=== PATIENT | male | born 1950 | race Caucasian/White ===

== ENCOUNTER 2018-04-11 21:31 | Emergency (ER) | payer OTHER ==
--- NOTE | 2018-04-11 21:38 | PDOC ---
History of Present Illness - General Stated Complaint: INTOX/FALL Time Seen by Provider: 04/11/18 21:38
[2018-04-11] MEDS ORDERED: SODIUM CHLORIDE 0.9% 500 ML INFUS.BAG IV ONE (21:42)
[2018-04-11 21:51] VITALS: TEMP 97.6; BMI 24.3
--- NOTE | 2018-04-11 21:57 | PDOC ---
History of Present Illness - General Chief Complaint: Injury Stated Complaint: INTOX/FALL Time Seen by Provider: 04/11/18 21:38 History Source: Patient, EMS - History of Present Illness Initial Comments: 04/11/18 21:56 67m with pmh of uncontrolled HTN and stroke brought by ems for fall on the floor while intoxicated. 04/12/18 00:07 Past History - Past Medical History Allergies/Adverse Reactions: Allergies Allergy/AdvReac Type Severity Reaction Status Date / Time No Known Allergies Allergy Verified 04/11/18 22:16 - Suicide/Smoking/Psychosocial Hx Smoking History: Unknown if ever smoked Have you smoked in the past 12 months: No Information on smoking cessation initiated: No Hx Alcohol Use: No Drug/Substance Use Hx: No *Physical Exam - Vital Signs Last Vital Signs Temp Pulse Resp BP Pulse Ox 97.6 F 109 H 16 171/79 H 95 04/11/18 21:50 04/11/18 21:50 04/11/18 21:50 04/11/18 21:50 04/11/18 21:50 Medical Decision Making - Medical Decision Making 04/12/18 00:07 CT head negative. Will reassess when patient has sobered up. Patient signed out to Dr. Michel *DC/Admit/Observation/Transfer Diagnosis at time of Disposition: Alcohol intoxication - Referrals - Patient Instructions - Post Discharge Activity
--- NOTE | 2018-04-11 23:47 | PDOC ---
Attending Attestation - Resident Resident Name: KaylahKeron - ED Attending Attestation I have performed the following: I have examined & evaluated the patient, The case was reviewed & discussed with the resident, I agree w/resident's findings & plan, Exceptions are as noted - HPI HPI: 04/11/18 23:40 67 M with HTN and CVA presents to ED after falling while intoxicated. Per family member, pt was drinking heavily tonight and tripped, falling over and hitting his head. Pt in ED is intoxicated and somnolent, unable to contribute any history, though he denies having any pain. - Physicial Exam PE: 04/11/18 23:47 GENERAL: somnolent, arousable to painful stimuli, in no acute distress. HEAD: No signs of trauma EYES: PERRLA, EOMI, sclera anicteric, conjunctiva clear ENT: Auricles normal inspection, hearing grossly normal, nares patent, oropharynx clear without exudates. Moist mucosa NECK: Nontender, no stepoffs, Normal ROM, supple, no lymphadenopathy, JVD, or masses LUNGS: Breath sounds equal, clear to auscultation bilaterally. No wheezes, and no crackles HEART: Regular rate and rhythm, normal S1 and S2, no murmurs, rubs or gallops ABDOMEN: Soft, nontender, normoactive bowel sounds. No guarding, no rebound. No masses EXTREMITIES: Normal range of motion, no edema. No clubbing or cyanosis. No cords, erythema, or tenderness NEUROLOGICAL: Cranial nerves II through XII intact. 5/5 strength and sensation in all extremities SKIN: Warm, Dry, normal turgor, no rashes or lesions noted. - Medical Decision Making 04/11/18 23:49 67 M presenting with fall and headstrike. Pt clinically intoxicated, smells of ETOH, but arousable. No external signs of trauma. - CT head - Re-evaluate when sober 04/12/18 01:21 CT head negative Pt reassessed - still sleeping but arousable to verbal stimuli. No complaints. 04/12/18 04:56 Pt now awake and alert. States that he has pain in his sacrum. Denies any other pain. XR ordered 04/12/18 06:38 XR negative on my read Upon further questioning, pt states that the pain in his back is chronic. He typically uses a cane to walk. Pt able to stand and ambulate with minimal assistance, he states that this is his baseline. 04/12/18 06:41 Discussed with pt's family, who corroborate that pt is ambulatory with assistance at baseline. He also has h/o HTN that he is currently not taking meds for. Pt denies any CP/SOB/headache. Rpt vitals stable BP 180/80 HR 70s Pt is well appearing, with normal vitals. Clinically stable for DC at this time. I discussed the physical exam findings, ancillary test results and final diagnoses with the patient. I answered all of the patient's questions. The patient was satisfied with the care received and felt comfortable with the discharge plan and treatment plan. The patient agrees to follow up with the primary care physician within 24-72 hours.
[2018-04-12] MEDS ORDERED: ACETAMINOPHEN 1000 MG/100 ML VIAL (NON FORMULARY) IVPB ONE (05:06)
[2018-04-12] MEDS ORDERED: ACETAMINOPHEN INJECTION 100 ML IVPB ONE (05:09)
--- NOTE | 2018-04-12 05:09 | PDOC ---
*Physical Exam - Vital Signs Last Vital Signs Temp Pulse Resp BP Pulse Ox 97.6 F 109 H 16 171/79 H 95 04/11/18 21:50 04/11/18 21:50 04/11/18 21:50 04/11/18 21:50 04/11/18 21:50 <Shyam Cheung - Last Filed: 04/12/18 06:43> - Vital Signs Last Vital Signs Temp Pulse Resp BP Pulse Ox 97.6 F 109 H 16 171/79 H 95 04/11/18 21:50 04/11/18 21:50 04/11/18 21:50 04/11/18 21:50 04/11/18 21:50 <Keyonna Michel - Last Filed: 04/12/18 07:16> ED Treatment Course - Medications Given in the ED: ED Medications Discontinued Medications Generic Name Dose Route Start Last Admin Trade Name Freq PRN Reason Stop Dose Admin Acetaminophen 1,000 mg 04/12/18 05:06 04/12/18 05:14 Ofirmev Injection - IVPB 04/12/18 05:07 1,000 mg ONCE ONE Administration Sodium Chloride 1,000 ml 04/11/18 21:42 04/11/18 22:14 Normal Saline - IV 04/11/18 21:43 1,000 ml ONCE ONE Administration <Shyam Cheung - Last Filed: 04/12/18 06:43> - RADIOLOGY Radiology Studies Ordered: Category Date Time Status HEAD CT WITHOUT CONTRAST [CT] Stat CT Scan 04/11/18 21:42 Completed SACRUM [RAD] Stat Radiology 04/12/18 04:55 Ordered - Medications Given in the ED: ED Medications Discontinued Medications Generic Name Dose Route Start Last Admin Trade Name Freq PRN Reason Stop Dose Admin Sodium Chloride 1,000 ml 04/11/18 21:42 04/11/18 22:14 Normal Saline - IV 04/11/18 21:43 1,000 ml ONCE ONE Administration <Keyonna Michel - Last Filed: 04/12/18 07:16> Medical Decision Making - Medical Decision Making 04/12/18 05:07 Patient signed out by Dr. Adrian (Resident) under the care of Dr. Cheung (Attending) 67 year old male presents for acute alcohol intoxication. Uncertain h/o fall. CT head negative for acute bleed. Patient initially drowsy, now awake c/o back pain, sacrum TTP. Will obtain Sacrum XR. VS significant for BP 200's/104 - possibly 2/2 to pain though patient has noted history of 1 year non-adherence to anti-hypertensive regimen.. IV Tylenol. Reassess. Sacral XR negative for fracture. Case d/w with patient's family . At baseline patient walk using a cane. Repeat BP 185/81. Will discharge home with return precautions. I discussed the physical exam findings, ancillary test results and final diagnoses with the patient. I answered all of the patient's questions. The patient was satisfied with the care received and felt comfortable with the discharge plan and treatment plan. The patient will return to the Emergency Department with any new, persistent or worsening symptoms. <Keyonna Michel - Last Filed: 04/12/18 07:16> *DC/Admit/Observation/Transfer <Shyam Cheung - Last Filed: 04/12/18 06:43> <Keyonna Michel - Last Filed: 04/12/18 07:16> Diagnosis at time of Disposition: Alcohol intoxication - Referrals Referrals: Dallas Gregorio MD [Staff Physician] - - Patient Instructions Printed Discharge Instructions: Essential Hypertension, How to Prevent Falls Additional Instructions: If you experience headache, chest pain, shortness of breath, or any other concerning symptoms, return to the ER immediately. Otherwise, follow up with your primary doctor within 48 hours. If you do not have one, call the number provided to make an appointment. You MUST to have your blood pressure checked by your primary doctor soon, as it was very elevated today. Uncontrolled blood pressure can eventually lead to kidney disease, heart disease, other serious illness, disability, or even . Se sentir becki de cabea, becki no peito, falta de ar ou qualquer outro sintoma preocupante, retorne imediatamente ao pronto-ventura. Melissa contrrio, fale com seu mdico em 48 horas. Se voc no tiver um, ligue para o nmero fornecido para marcar melissa consulta. Voc deve ter sua presso arterial verificada pelo seu mdico primrio em breve , yara foi muito elevado hoje. A presso arterial descontrolada pode eventualmente edward a doenas renais, doenas cardacas, outras doenas graves, incapacidade ou at a morte.
[2018-04-12 06:45] VITALS: BP 185/81; PULSE 72
== END 2018-04-12 07:33 | disposition home or self-care (01) ==
LOC: JER 21:31
PROC: 3E033NZ Introduction of Analgesics, Hypnotics, Sedatives into Peripheral Vein, Percutaneous Approach (ICD-10-PCS; principal; 2018-04-11)
DX: F10.120 Alcohol abuse with intoxication, uncomplicated (principal); S09.8XXA Other specified injuries of head, initial encounter; M53.3 Sacrococcygeal disorders, not elsewhere classified; W18.39XA Other fall on same level, initial encounter; Y93.89 Activity, other specified; Y92.018 Other place in single-family (private) house as the place of occurrence of the external cause; Y99.8 Other external cause status; I10 Essential (primary) hypertension; Z86.73 Personal history of transient ischemic attack (TIA), and cerebral infarction without residual deficits; Z91.14 Patient's other noncompliance with medication regimen; Y90.9 Presence of alcohol in blood, level not specified
CPT/HCPCS: 70450-TC; 72220-TC-FY; 99282-25; J0131

== ENCOUNTER 2019-03-31 17:03 | Inpatient (IN) | payer OTHER ==
[2019-03-31] MEDS ORDERED: ACETAMINOPHEN INJECTION 100 ML IVPB ONE (17:53)
--- NOTE | 2019-03-31 17:55 | PDOC ---
History of Present Illness - General Chief Complaint: SIRS, Suspected/Possible Stated Complaint: R/O STROKE Time Seen by Provider: 03/31/19 17:51 History Source: Family - History of Present Illness Initial Comments: 03/31/19 21:31 Mr. 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 He is accompanied by his sons. His son reports that his father is normally alert and can answer short questions, but yesterday afternoon found that he was requiring additional assistance for ADLs, including eating and bathing. His son reports that this morning he was confused and disoriented, and they brought him for evaluation as they were concerned that he presented similarly for his prior CVA. He denies any chills or any pain anywhere. Son: Bull - [phone] Chinese speaking Past History - Past Medical History Allergies/Adverse Reactions: Allergies Allergy/AdvReac Type Severity Reaction Status Date / Time No Known Allergies Allergy Verified 04/11/18 22:16 Home Medications: Ambulatory Orders Atorvastatin Ca [Lipitor] 80 mg PO HS 03/31/19 Carvedilol [Coreg -] 12.5 mg PO BID 03/31/19 Docusate Sodium [Colace -] 100 mg PO BID 03/31/19 Donepezil HCl [Aricept -] 5 mg PO DAILY 03/31/19 Hydralazine HCl 25 mg PO DAILY 03/31/19 Losartan Potassium 100 mg PO DAILY 03/31/19 Mirtazapine 7.5 mg PO HS 03/31/19 COPD: No HTN: Yes Hypercholesterolemia: Yes Other medical history: Hemorraghic stroke x3 - Immunization History Immunization Up to Date: No - Suicide/Smoking/Psychosocial Hx Smoking History: Unknown if ever smoked Have you smoked in the past 12 months: No Information on smoking cessation initiated: No Hx Alcohol Use: No Drug/Substance Use Hx: No Substance Use Type: Alcohol Review of Systems - Review of Systems Able to Perform ROS?: No (AMS) *Physical Exam - Vital Signs Last Vital Signs Temp Pulse Resp BP Pulse Ox 102.2 F H 78 16 137/74 100 03/31/19 17:35 03/31/19 17:35 03/31/19 17:35 03/31/19 17:35 03/31/19 17:35 - Physical Exam Comments: 03/31/19 22:01 PE: GENERAL: Somnolent, disoriented, pale. HEAD: No signs of trauma, normocephalic, atraumatic EYES: PERRLA, EOMI, sclera anicteric, conjunctiva clear ENT: Auricles normal inspection, hearing grossly normal, nares patent, oropharynx clear without exudates. Moist mucosa NECK: Normal ROM, supple, no lymphadenopathy, JVD, or masses LUNGS: Exam limited by poor inspiratory effort/difficulty cooperating with exam. No distress, clear to auscultation bilaterally HEART: Regular rate and rhythm, normal S1 and S2, no murmurs, rubs or gallops, peripheral pulses normal and equal bilaterally. ABDOMEN: Soft, nontender, normoactive bowel sounds. No guarding, no rebound. No masses EXTREMITIES : Normal inspection, Normal range of motion, no edema. No clubbing or cyanosis NEUROLOGICAL: No focal sensorimotor deficits SKIN: Warm, Dry, normal turgor, no rashes or lesions noted ED Treatment Course - LABORATORY CBC & Chemistry Diagram: 03/31/19 18:03 03/31/19 18:03 Medical Decision Making - Medical Decision Making 03/31/19 22:02 68 M with hx CVA, gout, HTN, HLD p/w one day of AMS, pallor, fever concerning for sepsis vs worsening infection. Plan: CBC CMP Blood cultures UA Urine culture CXR EKG CT Head non-con Acetaminophen 1g IV 1L NS IV Dispo: Admit -- CXR - negative UA - negative WBC - 13.5 03/31/19 22:36 Case discussed with admitting team. Will discuss with family re: spinal tap to r /o meningitis given unknown source of infection --- Spoke with patient's son Bull who will consent to spinal tap. 04/01/19 00:14 Still unable to locate spinal tap kit. --- Spinal tap kit en route from [facility]. Case signed out to Dr. Bryant. 04/01/19 03:12 *DC/Admit/Observation/Transfer Diagnosis at time of Disposition: Systemic inflammatory response syndrome (SIRS) - Discharge Dispostion Condition at time of disposition: Stable Decision to Admit order: Yes - Referrals - Patient Instructions - Post Discharge Activity
[2019-03-31] MEDS ORDERED: SODIUM CHLORIDE 0.9% 500 ML INFUS.BAG IV ONE (18:01)
[2019-03-31] MEDS ORDERED: ACETAMINOPHEN 1000 MG/100 ML VIAL (NON FORMULARY) IVPB ONE (18:01)
[2019-03-31 18:36] LABS: VENOUS PC02 49.3 mmHg (38-52); VENOUS PH 7.39 (7.31-7.41)
[2019-03-31 18:38] LABS: VENOUS PO2 < 49 mmHg (28-48)
[2019-03-31 19:02] LABS: BASO % 0.5 % (0-2.0); EOS % 0.1 % (0-4.5); HEMATOCRIT 33.8 % (35.4-49); HEMOGLOBIN 10.8 GM/dL (11.7-16.9); LYMPH % 12.7 % (8-40); MCH 27.4 pg (25.7-33.7); MCHC 31.9 g/dl (32.0-35.9); MONO % 6.6 % (3.8-10.2); NEUT % 80.1 % (42.8-82.8); PLATELET COUNT 180 K/MM3 (134-434); RBC 3.93 M/mm3 (4.00-5.60); RDW 17.1 % (11.9-15.9); WHITE BLOOD COUNT 13.5 K/mm3 (4.0-10.0)
[2019-03-31 19:10] LABS: ALBUMIN 3.2 g/dl (3.4-5.0); BILIRUBIN,TOTAL 0.9 mg/dL (0.2-1); BLOOD UREA NITROGEN 33.4 mg/dL (7-18); CALCIUM 8.8 mg/dL (8.5-10.1); CREATININE 1.6 mg/dL (0.55-1.3); POTASSIUM 4.3 mmol/L (3.5-5.1); TOT PROT 6.7 g/dl (6.4-8.2)
[2019-03-31 19:18] LABS: INR 1.31 (0.83-1.09); PROTHROMBIN TIME (PATIENT) 15.5 SEC (9.7-13.0)
[2019-03-31 19:21] LABS: ACTIVATED PTT 31.6 SECONDS (25.2-36.5)
[2019-03-31] MEDS ORDERED: HALOPERIDOL LACTATE 5 MG/ML ONE (20:26)
[2019-03-31 21:47] LABS: EPI CELLS 2.3 /HPF (0-5/HPF); HYALINE CASTS 16 /lpf (0-8); URINE APPEARANCE CLEAR; URINE BILIRUBIN NEGATIVE (NEGATIVE); URINE COLOR YELLOW; URINE GLUCOSE (UA) NEGATIVE (NEGATIVE); URINE KETONE NEGATIVE (NEGATIVE); URINE LEUK ESTERASE NEGATIVE (NEGATIVE); URINE NITRITE NEGATIVE (NEGATIVE); URINE PROTEIN 1+ (NEGATIVE); URINE RBC 0 /hpf (0-4); URINE WBC 0 /hpf (0-5)
[2019-03-31] MEDS ORDERED: HALOPERIDOL LACTATE 5 MG/ML IM ONE (22:14)
[2019-03-31] MEDS ORDERED: SODIUM CHLORIDE 1,000 ML IV STA (22:15)
--- NOTE | 2019-03-31 22:22 | PDOC ---
Attending Attestation - Resident Resident Name: Steve Ansari - ED Attending Attestation I have performed the following: I have examined & evaluated the patient, The case was reviewed & discussed with the resident, I agree w/resident's findings & plan, Exceptions are as noted - HPI HPI: 03/31/19 22:20 68 yo male brought in from home by ambulance for altered mental status and fever Past medical history significant for CVA with chronic left sided weakness 03/31/19 22:23 - Physicial Exam PE: 03/31/19 22:23 thin frail appearing 68 yo male with fever head ncat lung no wheezing cvs tachycardia abd no rebound skin warm and dry neuro verbal, chronic left sided weakness - Medical Decision Making 04/01/19 00:40 pt febrile but no source appreciated in urine or on cxr ct scan head : chronic infarct 04/01/19 01:48 pt currently undergoing lumbar puncture family gave verbal consent for procedure pt admitted to med/surg
--- NOTE | 2019-03-31 22:33 | PN ---
Teaching Attending Note Name of Resident: Can Michelle ATTENDING PHYSICIAN STATEMENT I saw and evaluated the patient. I reviewed the resident's note and discussed the case with the resident. I agree with the resident's findings and plan as documented. SUBJECTIVE: Patient is a 68 year old man with PMH of Hemorrhagic CVA 8 months ago with residual left sided weakness, HTN, HLD, ?Alcohol abuse and Gout presents with one day of AMS. He is accompanied by his sons. His son reports that his father is normally alert and can answer short questions, but yesterday afternoon found that he was requiring additional assistance for ADLs, including eating and bathing. His son reports that this morning he was confused and disoriented, and they brought him for evaluation as they were concerned that he presented similarly for his prior CVA. He denies any chills or any pain anywhere. Patient got one oes of Haldol 5 mg IM in the ER for ?agitation. OBJECTIVE: Somnolent but arousable Vital Signs Period Temp Pulse Resp BP Sys/Flores Pulse Ox Last 24 Hr 102.2 F 78 16 137/74 97-100 HEENT: No Jaundice, eye redness or discharge, PERRLA, EOMI. Normocephalic, atraumatic. External ears are normal and hearing is grossly intact. No nasal discharge. Neck: Supple, nontender. No palpable adenopathy or thyromegaly. No JVD Chest: Good effort. Clear to auscultation and percussion. Heart: Regular. No S3, rub or murmur Abdomen: Not distended, soft, nontender and no HSM. No rebound or guarding. Normal bowel sounds. Ext: Peripheral pulses intact. No leg edema. Skin: Warm and dry. No petechiae, rash or ecchymosis. Neuro: Somnolent but arousable. Withdraws to noxious stimuli. Plantar reflexes are flexor. Gait cannot be tested for safety reasons. Psych: Unable to assess due to AMS. Current Medications Generic Name Dose Route Start Last Admin Trade Name Freq PRN Reason Stop Dose Admin Sodium Chloride 1,000 mls @ 1,000 mls/hr 03/31/19 22:15 03/31/19 22:17 Normal Saline - IV 03/31/19 23:14 1,000 mls/hr ASDIR STA Administration Abnormal Lab Results 03/31/19 03/31/19 03/31/19 18:03 18:03 18:03 WBC 13.5 H RBC 3.93 L Hgb 10.8 L Hct 33.8 L MCHC 31.9 L RDW 17.1 H Absolute Neuts (auto) 10.8 H PT with INR 15.50 H INR 1.31 H POC VBG pO2 VBG O2 Sat (Gricelda) VBG Base Excess Chloride 109 H Anion Gap 6 L BUN 33.4 H Creatinine 1.6 H Random Glucose 126 H Albumin 3.2 L Urine Protein 03/31/19 03/31/19 18:03 20:39 WBC RBC Hgb Hct MCHC RDW Absolute Neuts (auto) PT with INR INR POC VBG pO2 < 49 H VBG O2 Sat (Gricelda) 40.8 L VBG Base Excess 3.5 H Chloride Anion Gap BUN Creatinine Random Glucose Albumin Urine Protein 1+ H ASSESSMENT AND PLAN: 1. Sepsis of unkown source and AMS - Noncontrast head CT showed right parietal, right thalamocapsular and left thalamic infarcts all reported as possibly chronic - will get brain MRI. No acute abnormality on CXR and no evidence of UTI. Sepsis workup done and patient getting a lumbar puncture by the ER staff - pending results of CSF analysis, will treat empirically for meningitis with IV Vancomycin, Rocephin, Ampicillin and Acyclovir. Will get urine toxicology, blood alcohol level and do neurochecks. Implement seizure, fall and aspiration precautions. Continue IV NS. Will continue comprehensive care for all of patient s comorbid conditions. 2. Hypoalbuminemia - Possibly due to combined effects of proteinuria, malnutrition and inflammation associated with comorbid chronic conditions. Will ensure adequate dietary protein intake and also consult electronic assembler group leader. 3. ANDREW - Cause unclear. Get kidney sonogram, CPK, hydrate and monitor urine output. Consult nephrology and avoid nephrotoxic agents such as NSAIDS, aminoglycosides, contrast dyes and certain Alternative medicine products. 4. Anemia - Likely multifactorial. Will do basic anemia work up including serial stool guaiacs, reticulocyte count and iron studies. 5. Hypertension - Restart suitable outpatient antihypertensive drugs when clinically appropriate. Revise regimen to ensure [id number] excellent BP control and counselor marriage and family patient on the injurious effects of uncontrolled hypertension. Nonpharmacologic measures to control hypertension like weight loss , salt restriction and exercise discussed. Importance of adherence to treatment regimen and attainment of normotension emphasized. 6. DVT prophylaxis - Heparin 5000u sq tid. 7. Advance directives - Full code
--- NOTE | 2019-03-31 23:01 | HP ---
CHIEF COMPLAINT: altered mental status PCP: HISTORY OF PRESENT ILLNESS: Darnell Jon is a 68 year old Yakut speaking male with a past medical history of hemorrhagic stroke (x4 with L sided residual weakness), hypertension , hyperlipidemia, gout who presented to the ED with family with altered mental status. The patient was somnolent and was unable to answer questions. History obtained from the son via phone. Patient was at his baseline mental status which was conversant in small phrases, following simple commands, eating normally, minimal walking with assistance, usually alert and oriented to self and place until night before admission when it was noticed he was more lethargic than usual. Patient was more unsteady, was not making sense with his words, and not consuming any foods this morning. The patient does not normally have any complaints and had no acute complaints as of recently. He had been unable to walk the last 3 weeks due to increased unsteadiness and pain in his knee. Additionally, the son noted a non-productive cough that appeared this morning as well as the patient having subjective warmth when forehead was felt. Patient was brought to the ED as the family was worried about a recurrence of the strokes that patient had. Son denied any recent changes to medication, alcohol or drug intoxication. Son stated that the patient had urinary incontinence and ambulates very poorly with a cane or walker but usually requires assistance to ambulate. ER course was notable for: (1) Febrile 202.2 (2) Head CT with R sided parietal chronic infarct, chronic right thalamocapsular infarct, chronic left thalamic infarct, moderate to marked periventricular subcortical gliosis within the frontal lobes, no obstructive hydrocephalus, no acute bleeds (3) CXR with no acute pathology (4) WBC 12.4, H/H 1038/33.8 Recent Travel: none PAST MEDICAL HISTORY: as above PAST SURGICAL HISTORY: son denies Social History: Smoking: denied Alcohol: former drinker Drugs: denied Lives with son Family History: unknown family history Allergies No Known Allergies Allergy (Verified 04/11/18 22:16) HOME MEDICATIONS: REVIEW OF SYSTEMS Unable to obtain review of systems as patient lethargic and unable to answer questions. All HPI as per above. PHYSICAL EXAMINATION Vital Signs - 24 hr 03/31/19 17:35 Temperature 102.2 F H Pulse Rate 78 Respiratory 16 Rate Blood Pressure 137/74 O2 Sat by Pulse 97 Oximetry (%) GENERAL: Lethargic, awakens briefly to noxious stimuli. HEAD: Normal with no signs of trauma. EYES: Pupils 2mm and sluggish to light, sclera anicteric. EARS, NOSE, THROAT: Oropharynx clear without exudates. Dry mucous membranes. NECK: Supple without lymphadenopathy, JVD. LUNGS: Breath sounds equal, poorly auscultated due to patient non-compliance otherwise clear to auscultation bilaterally. No wheezes, and no crackles. HEART: Regular rate and rhythm, normal S1 and S2 without murmur, rub. ABDOMEN: Soft, nontender, not distended, normoactive bowel sounds, no guarding, no rebound, no masses. MUSCULOSKELETAL: No noted bone deformities. UPPER EXTREMITIES: 2+ pulses, warm, well-perfused. No cyanosis. No clubbing. No peripheral edema. LOWER EXTREMITIES: 1+ pulses, warm, well-perfused. No calf tenderness. No peripheral edema. NEUROLOGICAL: Withdraws all four extremities to painful stimuli, Babinski non- reactive. Pupils sluggish to light. SKIN: Warm, dry, normal turgor, noted small excoriation on left wells. Laboratory Results - last 24 hr 03/31/19 03/31/19 03/31/19 17:03 18:03 18:03 WBC 13.5 H RBC 3.93 L Hgb 10.8 L Hct 33.8 L MCV 86.0 MCH 27.4 MCHC 31.9 L RDW 17.1 H Plt Count 180 MPV 10.0 Absolute Neuts (auto) 10.8 H Neutrophils % 80.1 Lymphocytes % 12.7 Monocytes % 6.6 Eosinophils % 0.1 Basophils % 0.5 Nucleated RBC % 0 PT with INR INR PTT (Actin FS) VBG pH POC VBG pCO2 POC VBG pO2 VBG HCO3 VBG O2 Sat (Gricelda) VBG Base Excess Sodium Potassium Chloride Carbon Dioxide Anion Gap BUN Creatinine Est GFR (CKD-EPI)AfAm Est GFR (CKD-EPI)NonAf Random Glucose Lactic Acid 1.6 Calcium Total Bilirubin AST ALT Alkaline Phosphatase Troponin I < 0.02 Total Protein Albumin Urine Color Urine Appearance Urine pH Ur Specific [place] Urine Protein Urine Glucose (UA) Urine Ketones Urine Blood Urine Nitrite Urine Bilirubin Urine Urobilinogen Ur Leukocyte Esterase Urine WBC (Auto) Urine RBC (Auto) Urine Casts (Auto) U Epithel Cells (Auto) Urine Bacteria (Auto) 03/31/19 03/31/19 03/31/19 18:03 18:03 18:03 WBC RBC Hgb Hct MCV MCH MCHC RDW Plt Count MPV Absolute Neuts (auto) Neutrophils % Lymphocytes % Monocytes % Eosinophils % Basophils % Nucleated RBC % PT with INR 15.50 H INR 1.31 H PTT (Actin FS) 31.6 VBG pH 7.39 POC VBG pCO2 49.3 POC VBG pO2 < 49 H VBG HCO3 29.0 VBG O2 Sat (Gricelda) 40.8 L VBG Base Excess 3.5 H Sodium 144 Potassium 4.3 Chloride 109 H Carbon Dioxide 29 Anion Gap 6 L BUN 33.4 H Creatinine 1.6 H Est GFR (CKD-EPI)AfAm 50.55 Est GFR (CKD-EPI)NonAf 43.62 Random Glucose 126 H Lactic Acid Calcium 8.8 Total Bilirubin 0.9 AST 28 ALT 17 Alkaline Phosphatase 74 Troponin I Total Protein 6.7 Albumin 3.2 L Urine Color Urine Appearance Urine pH Ur Specific [place] Urine Protein Urine Glucose (UA) Urine Ketones Urine Blood Urine Nitrite Urine Bilirubin Urine Urobilinogen Ur Leukocyte Esterase Urine WBC (Auto) Urine RBC (Auto) Urine Casts (Auto) U Epithel Cells (Auto) Urine Bacteria (Auto) 03/31/19 20:39 WBC RBC Hgb Hct MCV MCH MCHC RDW Plt Count MPV Absolute Neuts (auto) Neutrophils % Lymphocytes % Monocytes % Eosinophils % Basophils % Nucleated RBC % PT with INR INR PTT (Actin FS) VBG pH POC VBG pCO2 POC VBG pO2 VBG HCO3 VBG O2 Sat (Gricelda) VBG Base Excess Sodium Potassium Chloride Carbon Dioxide Anion Gap BUN Creatinine Est GFR (CKD-EPI)AfAm Est GFR (CKD-EPI)NonAf Random Glucose Lactic Acid Calcium Total Bilirubin AST ALT Alkaline Phosphatase Troponin I Total Protein Albumin Urine Color Yellow Urine Appearance Clear Urine pH 6.0 Ur Specific [place] 1.020 Urine Protein 1+ H Urine Glucose (UA) Negative Urine Ketones Negative Urine Blood Negative Urine Nitrite Negative Urine Bilirubin Negative Urine Urobilinogen 1.0 Ur Leukocyte Esterase Negative Urine WBC (Auto) 0 Urine RBC (Auto) 0 Urine Casts (Auto) 16 U Epithel Cells (Auto) 2.3 Urine Bacteria (Auto) 1.0 EKG--> NSR, LVH, no ST segment changes, Qtc 467 ASSESSMENT/PLAN: Darnell Jon is a 68 year old Yakut speaking male with a past medical history of 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 Altered Mental Status Hypertension Hyperlipidemia Anemia ANDREW/CKD Altered Mental Status secondary to sepsis of unknown origin - patient febrile and septic with no clear source, UA negative, CXR negative, LP pending - CT as above - brain MRI to examine for encephalitis or other acute pathology - covered empirically for meningitis - ceftriaxone 2g daily - vancomycin 1g daily renally dosed - ampicillin 2g q12 renally dosed - acyclovir 700mg q12h renally dosed as recommended by pharmacy - NS at 100 cc/hr - continue to trend WBC, fevers, signs of infection - urine and blood cultures pending - ID consulted - Neurology consulted - dysphagia and fall precautions - urine toxicology negative - monitor for electrolytes disturbances Hypertension - hold BP meds in setting of sepsis - monitor BP and low threshold to restart BP meds in light of history of hemorrhagic stroke Hyperlipidemia - continue Lipitor Anemia - unclear of baseline - iron studies - may benefit from iron supplementation ANDREW/CKD - CRE 1.6, unclear of baseline - renal/bladder U/S - urine CRE and electrolytes ordered - CPK ordered FEN - NS at 100 cc/hr - continue to monitor electrolytes and replete as necessary - sodium controlled diet, dysphagia precautions while has altered mental status Prophylaxis - heparin 5000 units sub tid Code - full code EVA KNOTT DO - PGY-1 Visit type - Emergency Visit Emergency Visit: Yes ED Registration Date: 03/31/19 Care time: The patient presented to the Emergency Department on the above date and was hospitalized for further evaluation of their emergent condition. - New Patient This patient is new to me today: Yes Date on this admission: 04/01/19 - Critical Care Critical Care patient: No
[2019-04-01] MEDS ORDERED: CEFTRIAXONE 2 GM-D5W BAG 2 GM/50 ML BAG IVPB ONE (00:05)
[2019-04-01] MEDS ORDERED: VANCOMYCIN 1 GM in D5W (PRE-DOCKED) 1,000 MG/250 ML IVPB ONE (00:05)
[2019-04-01] MEDS ORDERED: AMPICILLIN - 2 GM in SODIUM CHLORIDE 100 ML IVPB ONE ×2 (00:06→13:00)
[2019-04-01] MEDS ORDERED: SODIUM CHLORIDE 1,000 ML IV SCH (00:15)
[2019-04-01] MEDS ORDERED: VANCOMYCIN 1 GRAM (PRE-DOCKED) 1,000 MG/250 ML BAG IVPB ONE (00:36)
[2019-04-01] MEDS ORDERED: AMPICILLIN SODIUM 2 GM VIAL ONE (00:36)
[2019-04-01] MEDS ORDERED: CEFTRIAXONE 2 GM/100 ML BAG IVPB ONE (00:36)
[2019-04-01 01:01] LABS: COCAINE, UR NEGATIVE ng/ml (CUTOFF=300); METHADONE, UR NEGATIVE ng/ml (CUTOFF=300); OPIATES, URI NEGATIVE ng/ml (CUTOFF=300); PHENCYCLIDINE,URINE NEGATIVE ng/ml (CUTOFF=25); URINE AMPHETAMINES NEGATIVE ng/ml (CUTOFF=500); URINE BARBITURATES NEGATIVE ng/ml (CUTOFF=200); URINE BENZODIAZEPINES NEGATIVE ng/ml (CUTOFF=200)
[2019-04-01] MEDS ORDERED: LIDOCAINE HCL/PF 1% SDV 5ML VIAL ONE (01:47)
[2019-04-01] MEDS ORDERED: ACYCLOVIR INJECTION 700 MG in DEXTROSE 5%-WATER - 100 ML IVPB ONE (02:00)
[2019-04-01] MEDS ORDERED: ACYCLOVIR INJECTION 700 MG in DEXTROSE 5%-WATER - 100 ML IVPB SCH ×2 (02:00→15:45)
--- NOTE | 2019-04-01 02:42 | PDOC ---
*Physical Exam - Vital Signs Last Vital Signs Temp Pulse Resp BP Pulse Ox 102.2 F H 72 20 155/81 95 03/31/19 17:35 04/01/19 00:21 04/01/19 00:21 04/01/19 00:21 04/01/19 00:21 ED Treatment Course - LABORATORY CBC & Chemistry Diagram: 03/31/19 18:03 03/31/19 18:03 - ADDITIONAL ORDERS Additional order review: Laboratory Results 03/31/19 03/31/19 03/31/19 20:39 18:03 18:03 PT with INR 15.50 H INR 1.31 H PTT (Actin FS) 31.6 VBG pH 7.39 POC VBG pCO2 49.3 POC VBG pO2 < 49 H VBG HCO3 29.0 VBG O2 Sat (Gricelda) 40.8 L VBG Base Excess 3.5 H Sodium Potassium Chloride Carbon Dioxide Anion Gap BUN Creatinine Est GFR (CKD-EPI)AfAm Est GFR (CKD-EPI)NonAf Random Glucose Lactic Acid Calcium Total Bilirubin AST ALT Alkaline Phosphatase Troponin I Total Protein Albumin Urine Color Yellow Urine Appearance Clear Urine pH 6.0 Ur Specific [place] 1.020 Urine Protein 1+ H Urine Glucose (UA) Negative Urine Ketones Negative Urine Blood Negative Urine Nitrite Negative Urine Bilirubin Negative Urine Urobilinogen 1.0 Ur Leukocyte Esterase Negative Urine WBC (Auto) 0 Urine RBC (Auto) 0 Urine Casts (Auto) 16 U Epithel Cells (Auto) 2.3 Urine Bacteria (Auto) 1.0 03/31/19 03/31/19 03/31/19 18:03 18:03 17:03 PT with INR INR PTT (Actin FS) VBG pH POC VBG pCO2 POC VBG pO2 VBG HCO3 VBG O2 Sat (Gricelda) VBG Base Excess Sodium 144 Potassium 4.3 Chloride 109 H Carbon Dioxide 29 Anion Gap 6 L BUN 33.4 H Creatinine 1.6 H Est GFR (CKD-EPI)AfAm 50.55 Est GFR (CKD-EPI)NonAf 43.62 Random Glucose 126 H Lactic Acid 1.6 Calcium 8.8 Total Bilirubin 0.9 AST 28 ALT 17 Alkaline Phosphatase 74 Troponin I < 0.02 Total Protein 6.7 Albumin 3.2 L Urine Color Urine Appearance Urine pH Ur Specific [place] Urine Protein Urine Glucose (UA) Urine Ketones Urine Blood Urine Nitrite Urine Bilirubin Urine Urobilinogen Ur Leukocyte Esterase Urine WBC (Auto) Urine RBC (Auto) Urine Casts (Auto) U Epithel Cells (Auto) Urine Bacteria (Auto) 03/31/19 18:03 RBC 3.93 L MCV 86.0 MCHC 31.9 L RDW 17.1 H MPV 10.0 Neutrophils % 80.1 Lymphocytes % 12.7 Monocytes % 6.6 Eosinophils % 0.1 Basophils % 0.5 - Medications Given in the ED: ED Medications Discontinued Medications Generic Name Dose Route Start Last Admin Trade Name Linda PRN Reason Stop Dose Admin Acetaminophen 1,000 mg 03/31/19 18:01 03/31/19 18:11 Ofirmev Injection - IVPB 03/31/19 18:02 1,000 mg ONCE ONE Administration Haloperidol 5 mg 03/31/19 22:14 03/31/19 22:05 Haldol Injection (Fast Acting) - IM 03/31/19 22:15 5 mg ONCE ONE Administration Sodium Chloride 1,000 mls @ 1,000 mls/hr 03/31/19 22:15 03/31/19 22:17 Normal Saline - IV 03/31/19 23:14 1,000 mls/hr ASDIR STA Administration Ampicillin Sodium 2 gm/ Sodium 100 mls @ 200 mls/hr 04/01/19 00:06 04/01/19 00:58 Chloride IVPB 04/01/19 00:35 200 mls/hr ONCE ONE Administration Protocol Ceftriaxone Sodium 2 gm in 50 mls @ 100 mls/hr 04/01/19 00:05 04/01/19 00:58 Ceftriaxone 2 Gm-D5w Bag IVPB 04/01/19 00:34 100 mls/hr ONCE ONE Administration Protocol Sodium Chloride 1,000 ml 03/31/19 18:01 03/31/19 18:11 Normal Saline - IV 03/31/19 18:02 1,000 ml ONCE ONE Administration Vancomycin HCl 1,000 mg 04/01/19 00:05 04/01/19 02:02 Vancomycin (Pre-Docked) IVPB 04/01/19 00:06 1,000 mg ONCE ONE Administration Protocol *DC/Admit/Observation/Transfer Diagnosis at time of Disposition: Systemic inflammatory response syndrome (SIRS) - Discharge Dispostion Condition at time of disposition: Stable - Referrals - Patient Instructions - Post Discharge Activity Procedures - Lumbar Puncture Indication: AMS, Fever CT Scan: Yes Betadine Prep: Yes Position: Left lateral decubitus Site: L3-L4 Local Anesthesia: 1% Lidocaine with epi Volume(ml): 6 Lumbar Puncture Kit: Adult Needle Size(gauge): 20 Traumatic Tap: No Tubes Obtained: 4 Clear Fluid: Yes (1st tube appeared cloudy; 2-4 clear) Complications: No
[2019-04-01 03:08] LABS: BF GLUCOSE (CSF ONLY) 86 mg/dL (40-70)
[2019-04-01 03:45] VITALS: BMI 25.9
[2019-04-01 05:56] LABS: CSF APPEARANCE CLEAR; CSF COLOR COLORLESS
[2019-04-01 06:16] LABS: CSF WBC 1
[2019-04-01 07:37] LABS: HEMATOCRIT 32.5 % (35.4-49); HEMOGLOBIN 10.5 GM/dL (11.7-16.9); MCH 27.8 pg (25.7-33.7); MCHC 32.2 g/dl (32.0-35.9); MEAN CELL VOLUME 86.2 fl (80-96); MEAN PLT VOLUME 9.3 fl (7.5-11.1); PLATELET COUNT 140 K/MM3 (134-434); RBC 3.77 M/mm3 (4.00-5.60); RDW 17.4 % (11.9-15.9); WHITE BLOOD COUNT 9.7 K/mm3 (4.0-10.0)
[2019-04-01] MEDS: HEPARIN NA (PORCINE) 5,000 UNITS/ML 1ML VIAL SQ SCH ×3 (07:50→21:56)
[2019-04-01 08:35] LABS: ALBUMIN 2.8 g/dl (3.4-5.0); BILIRUBIN,TOTAL 0.6 mg/dL (0.2-1); BLOOD UREA NITROGEN 24.9 mg/dL (7-18); CALCIUM 8.1 mg/dL (8.5-10.1); CREATININE 1.1 mg/dL (0.55-1.3); MAGNESIUM 2.2 mg/dL (1.8-2.4); POTASSIUM 3.8 mmol/L (3.5-5.1); TOT PROT 6.2 g/dl (6.4-8.2)
--- NOTE | 2019-04-01 09:11 | CONSULT ---
Consult - text type - Consultation Consultation Note: Neurology CHIEF COMPLAINT: altered mental status HISTORY OF PRESENT ILLNESS: 68 year old Estonian speaking male with a past medical history of hemorrhagic stroke (x4 with L sided residual weakness), hypertension, hyperlipidemia, gout who presented to the ED with family with altered mental status. The patient was somnolent and was unable to answer questions. History obtained from chart. eportedly, patient was at his baseline mental status which was conversant in small phrases, following simple commands, eating normally, minimal walking with assistance, usually alert and oriented to self and place until night before admission when it was noticed he was more lethargic than usual. Patient was more unsteady, was not making sense with his words, and not consuming any foods this morning. The patient does not normally have any complaints and had no acute complaints as of recently. He had been unable to walk the last 3 weeks due to increased unsteadiness and pain in his knee. Additionally, the son noted a non-productive cough that appeared this morning as well as the patient having subjective warmth when forehead was felt. Patient was brought to the ED as the family was worried about a recurrence of the strokes that patient had. Son denied any recent changes to medication, alcohol or drug intoxication. Son stated that the patient had urinary incontinence and ambulates very poorly with a cane or walker but usually requires assistance to ambulate. Of note, he had slightly elevated white count of 12.[address] completed and demonstrated R sided parietal chronic infarct, chronic right thalamocapsular infarct, chronic left thalamic infarct, moderate to marked periventricular subcortical gliosis within the frontal lobes, no obstructive hydrocephalus, no acute bleeds CXR with no acute pathology. spinal tap was also completed and demonstrelevated glucose of 86 and slightly elevated protein of 51 elevated protein of 51. Discussed case with nurse and would like for patient have MRI of the brain which has been ordered already. Also discussed with hospitalist. Patient remains lethargic and has been put on antibiotics. Recent Travel: none PAST MEDICAL HISTORY: as above PAST SURGICAL HISTORY: son denies Social History: Smoking: denied Alcohol: former drinker Drugs: denied Lives with son Family History: HTN Allergies No Known Allergies Allergy (Verified 04/11/18 22:16) HOME MEDICATIONS: REVIEW OF SYSTEMS Unable to obtain review of systems as patient lethargic and unable to answer questions. All HPI as per above. PHYSICAL EXAMINATION Vital Signs - 24 hr 03/31/19 17:35 Temperature 102.2 F H Pulse Rate 78 Respiratory 16 Rate Blood Pressure 137/74 O2 Sat by Pulse 97 Oximetry (%) GENERAL: Lethargic, awakens briefly to noxious stimuli. HEAD: Normal with no signs of trauma. EYES: Pupils 2mm and sluggish to light, sclera anicteric. EARS, NOSE, THROAT: Oropharynx clear without exudates. Dry mucous membranes. NECK: Supple without lymphadenopathy, JVD. LUNGS: Breath sounds equal, poorly auscultated due to patient non-compliance otherwise clear to auscultation bilaterally. No wheezes, and no crackles. HEART: Regular rate and rhythm, normal S1 and S2 without murmur, rub. ABDOMEN: Soft, nontender, not distended, normoactive bowel sounds, no guarding, no rebound, no masses. MUSCULOSKELETAL: No noted bone deformities. UPPER EXTREMITIES: 2+ pulses, warm, well-perfused. No cyanosis. No clubbing. No peripheral edema. LOWER EXTREMITIES: 1+ pulses, warm, well-perfused. No calf tenderness. No peripheral edema. NEUROLOGICAL: Withdraws all four extremities to painful stimuli, Babinski non- reactive. Not following commands, pupils slow but responsive to light, not participating in confrontation testing SKIN: Warm, dry, normal turgor, noted small excoriation on left wells. Laboratory Results - last 24 hr 03/31/19 03/31/19 03/31/19 17:03 18:03 18:03 WBC 13.5 H RBC 3.93 L Hgb 10.8 L Hct 33.8 L MCV 86.0 MCH 27.4 MCHC 31.9 L RDW 17.1 H Plt Count 180 MPV 10.0 Absolute Neuts (auto) 10.8 H Neutrophils % 80.1 Lymphocytes % 12.7 Monocytes % 6.6 Eosinophils % 0.1 Basophils % 0.5 Nucleated RBC % 0 PT with INR INR PTT (Actin FS) VBG pH POC VBG pCO2 POC VBG pO2 VBG HCO3 VBG O2 Sat (Gricelda) VBG Base Excess Sodium Potassium Chloride Carbon Dioxide Anion Gap BUN Creatinine Est GFR (CKD-EPI)AfAm Est GFR (CKD-EPI)NonAf Random Glucose Lactic Acid 1.6 Calcium Total Bilirubin AST ALT Alkaline Phosphatase Troponin I < 0.02 Total Protein Albumin Urine Color Urine Appearance Urine pH Ur Specific [place] Urine Protein Urine Glucose (UA) Urine Ketones Urine Blood Urine Nitrite Urine Bilirubin Urine Urobilinogen Ur Leukocyte Esterase Urine WBC (Auto) Urine RBC (Auto) Urine Casts (Auto) U Epithel Cells (Auto) Urine Bacteria (Auto) 03/31/19 03/31/19 03/31/19 18:03 18:03 18:03 WBC RBC Hgb Hct MCV MCH MCHC RDW Plt Count MPV Absolute Neuts (auto) Neutrophils % Lymphocytes % Monocytes % Eosinophils % Basophils % Nucleated RBC % PT with INR 15.50 H INR 1.31 H PTT (Actin FS) 31.6 VBG pH 7.39 POC VBG pCO2 49.3 POC VBG pO2 < 49 H VBG HCO3 29.0 VBG O2 Sat (Gricelda) 40.8 L VBG Base Excess 3.5 H Sodium 144 Potassium 4.3 Chloride 109 H Carbon Dioxide 29 Anion Gap 6 L BUN 33.4 H Creatinine 1.6 H Est GFR (CKD-EPI)AfAm 50.55 Est GFR (CKD-EPI)NonAf 43.62 Random Glucose 126 H Lactic Acid Calcium 8.8 Total Bilirubin 0.9 AST 28 ALT 17 Alkaline Phosphatase 74 Troponin I Total Protein 6.7 Albumin 3.2 L Urine Color Urine Appearance Urine pH Ur Specific [place] Urine Protein Urine Glucose (UA) Urine Ketones Urine Blood Urine Nitrite Urine Bilirubin Urine Urobilinogen Ur Leukocyte Esterase Urine WBC (Auto) Urine RBC (Auto) Urine Casts (Auto) U Epithel Cells (Auto) Urine Bacteria (Auto) 03/31/19 20:39 WBC RBC Hgb Hct MCV MCH MCHC RDW Plt Count MPV Absolute Neuts (auto) Neutrophils % Lymphocytes % Monocytes % Eosinophils % Basophils % Nucleated RBC % PT with INR INR PTT (Actin FS) VBG pH POC VBG pCO2 POC VBG pO2 VBG HCO3 VBG O2 Sat (Gricelda) VBG Base Excess Sodium Potassium Chloride Carbon Dioxide Anion Gap BUN Creatinine Est GFR (CKD-EPI)AfAm Est GFR (CKD-EPI)NonAf Random Glucose Lactic Acid Calcium Total Bilirubin AST ALT Alkaline Phosphatase Troponin I Total Protein Albumin Urine Color Yellow Urine Appearance Clear Urine pH 6.0 Ur Specific [place] 1.020 Urine Protein 1+ H Urine Glucose (UA) Negative Urine Ketones Negative Urine Blood Negative Urine Nitrite Negative Urine Bilirubin Negative Urine Urobilinogen 1.0 Ur Leukocyte Esterase Negative Urine WBC (Auto) 0 Urine RBC (Auto) 0 Urine Casts (Auto) 16 U Epithel Cells (Auto) 2.3 Urine Bacteria (Auto) 1.0 EKG--> NSR, LVH, no ST segment changes, Qtc 467 ASSESSMENT/PLAN: 68 year old Estonian speaking male with a past medical history of hemorrhagic stroke (x4 with L sided residual weakness), hypertension, hyperlipidemia, gout who presented to the ED with family with altered mental status. The patient was somnolent and was unable to answer questions. History obtained from chart. eportedly, patient was at his baseline mental status which was conversant in small phrases, following simple commands, eating normally, minimal walking with assistance, usually alert and oriented to self and place until night before admission when it was noticed he was more lethargic than usual. Patient was more unsteady, was not making sense with his words, and not consuming any foods this morning. The patient does not normally have any complaints and had no acute complaints as of recently. He had been unable to walk the last 3 weeks due to increased unsteadiness and pain in his knee. Additionally, the son noted a non-productive cough that appeared this morning as well as the patient having subjective warmth when forehead was felt. Patient was brought to the ED as the family was worried about a recurrence of the strokes that patient had. Son denied any recent changes to medication, alcohol or drug intoxication. Son stated that the patient had urinary incontinence and ambulates very poorly with a cane or walker but usually requires assistance to ambulate. Of note, he had slightly elevated white count of 12.[address] completed and demonstrated R sided parietal chronic infarct, chronic right thalamocapsular infarct, chronic left thalamic infarct, moderate to marked periventricular subcortical gliosis within the frontal lobes, no obstructive hydrocephalus, no acute bleeds CXR with no acute pathology. spinal tap was also completed and demonstrelevated glucose of 86 and slightly elevated protein of 51 elevated protein of 51. Discussed case with nurse and would like for patient have MRI of the brain which has been ordered already. Also discussed with hospitalist. Patient remains lethargic and has been put on antibiotics. ID follow up. Maintain adequate hydration. Monitor mental status, Renal consult for acute kidney injury.
[2019-04-01] MEDS ORDERED: DEXTROSE 5%-0.45% SALINE 1,000 ML IV SCH (10:45)
--- NOTE | 2019-04-01 10:47 | PN ---
Teaching Attending Note Name of Resident: Jamey Frazier ATTENDING PHYSICIAN STATEMENT I saw and evaluated the patient. I reviewed the resident's note and discussed the case with the resident. I agree with the resident's findings and plan as documented with exceptions below. SUBJECTIVE: Patient seen and examined, opens eyes, says 'yes' but otherwise limited participation. Unable to do full ROS. OBJECTIVE: Vital Signs Period Temp Pulse Resp BP Sys/Flores Pulse Ox Last 24 Hr 97.8 F-102.2 F 54-78 16-20 137-158/71-84 95-100 Intake & Output 03/29/19 03/30/19 03/31/19 04/01/19 23:59 23:59 23:59 23:59 Intake Total 400 Balance 400 Weight 154 lb 5.177 oz 161 lb 2 oz General: lying in bed, no acute distress Neck: soft, supple, no JVD CVS:S1S2 regular Chest: poor effort, unable to appreciate rales or wheezing Abdomen:Soft, obese, NT Extremities: no edema Neuro: opens eyes, says 'yes', minimal participation, facial symmetry, tongue midline, left eye miosis, both reactive to light but left sluggish, left sided weakness, withdraws to pain , DTR diminished, toes withdrawal, unable to check for sensations, unable to check gait Home Medications Medication Instructions Recorded Atorvastatin Ca [Lipitor] 80 mg PO HS 03/31/19 Carvedilol [Coreg -] 12.5 mg PO BID 03/31/19 Docusate Sodium [Colace -] 100 mg PO BID 03/31/19 Donepezil HCl [Aricept -] 5 mg PO DAILY 03/31/19 Hydralazine HCl 25 mg PO DAILY 03/31/19 Losartan Potassium 100 mg PO DAILY 03/31/19 Mirtazapine 7.5 mg PO HS 03/31/19 Active Medications Atorvastatin Calcium (Lipitor -) 80 mg PO HS MATTIE Donepezil HCl (Aricept -) 5 mg PO DAILY MATTIE Heparin Sodium (Porcine) (Heparin -) 5,000 unit SQ TID MATTIE Last Admin: 04/01/19 07:50 Dose: 5,000 unit Acyclovir 700 mg/ Dextrose 114 mls @ 100 mls/hr IVPB Q12H MATTIE Ampicillin Sodium 2 gm/ Sodium (Chloride) 100 mls @ 200 mls/hr IVPB ONCE ONE; Protocol Stop: 04/01/19 13:29 Dextrose/Sodium Chloride (D5-1/2ns -) 1,000 mls @ 100 mls/hr IV ASDIR COUNTS INCLUDE 234 BEDS AT THE [facility] Laboratory Results - last 24 hr 03/31/19 03/31/19 03/31/19 17:03 18:03 18:03 WBC 13.5 H RBC 3.93 L Hgb 10.8 L Hct 33.8 L MCV 86.0 MCH 27.4 MCHC 31.9 L RDW 17.1 H Plt Count 180 MPV 10.0 Absolute Neuts (auto) 10.8 H Neutrophils % 80.1 Lymphocytes % 12.7 Monocytes % 6.6 Eosinophils % 0.1 Basophils % 0.5 Nucleated RBC % 0 PT with INR INR PTT (Actin FS) VBG pH POC VBG pCO2 POC VBG pO2 VBG HCO3 VBG O2 Sat (Gricelda) VBG Base Excess Sodium Potassium Chloride Carbon Dioxide Anion Gap BUN Creatinine Est GFR (CKD-EPI)AfAm Est GFR (CKD-EPI)NonAf Random Glucose Lactic Acid 1.6 Calcium Magnesium Iron TIBC Iron Saturation Unsaturated IBC Ferritin Total Bilirubin AST ALT Alkaline Phosphatase Creatine Kinase Creatine Kinase Index CK-MB (CK-2) Troponin I < 0.02 Total Protein Albumin TSH Urine Color Urine Appearance Urine pH Ur Specific [place] Urine Protein Urine Glucose (UA) Urine Ketones Urine Blood Urine Nitrite Urine Bilirubin Urine Urobilinogen Ur Leukocyte Esterase Urine WBC (Auto) Urine RBC (Auto) Urine Casts (Auto) U Epithel Cells (Auto) Urine Bacteria (Auto) Ur Random Creatinine Ur Random Sodium Ur Random Potassium Ur Random Chloride CSF Appearance CSF Color CSF WBC CSF RBC CSF Neutrophils CSF Lymphocytes CSF Monocytes CSF Eosinophils CSF Basophils CSF Macrophages CSF Plasma Cells CSF Other Cells CSF Diff Comment CSF Comment CSF Glucose CSF Total Protein Opiates Screen Methadone Screen Barbiturate Screen Phencyclidine Screen Ur Amphetamines Screen MDMA (Ecstasy) Screen Benzodiazepines Screen Cocaine Screen U Marijuana (THC) Screen Alcohol, Quantitative 03/31/19 03/31/19 03/31/19 18:03 18:03 18:03 WBC RBC Hgb Hct MCV MCH MCHC RDW Plt Count MPV Absolute Neuts (auto) Neutrophils % Lymphocytes % Monocytes % Eosinophils % Basophils % Nucleated RBC % PT with INR 15.50 H INR 1.31 H PTT (Actin FS) 31.6 VBG pH 7.39 POC VBG pCO2 49.3 POC VBG pO2 < 49 H VBG HCO3 29.0 VBG O2 Sat (Gricelda) 40.8 L VBG Base Excess 3.5 H Sodium 144 Potassium 4.3 Chloride 109 H Carbon Dioxide 29 Anion Gap 6 L BUN 33.4 H Creatinine 1.6 H Est GFR (CKD-EPI)AfAm 50.55 Est GFR (CKD-EPI)NonAf 43.62 Random Glucose 126 H Lactic Acid Calcium 8.8 Magnesium Iron TIBC Iron Saturation Unsaturated IBC Ferritin Total Bilirubin 0.9 AST 28 ALT 17 Alkaline Phosphatase 74 Creatine Kinase Creatine Kinase Index CK-MB (CK-2) Troponin I Total Protein 6.7 Albumin 3.2 L TSH Urine Color Urine Appearance Urine pH Ur Specific [place] Urine Protein Urine Glucose (UA) Urine Ketones Urine Blood Urine Nitrite Urine Bilirubin Urine Urobilinogen Ur Leukocyte Esterase Urine WBC (Auto) Urine RBC (Auto) Urine Casts (Auto) U Epithel Cells (Auto) Urine Bacteria (Auto) Ur Random Creatinine Ur Random Sodium Ur Random Potassium Ur Random Chloride CSF Appearance CSF Color CSF WBC CSF RBC CSF Neutrophils CSF Lymphocytes CSF Monocytes CSF Eosinophils CSF Basophils CSF Macrophages CSF Plasma Cells CSF Other Cells CSF Diff Comment CSF Comment CSF Glucose CSF Total Protein Opiates Screen Methadone Screen Barbiturate Screen Phencyclidine Screen Ur Amphetamines Screen MDMA (Ecstasy) Screen Benzodiazepines Screen Cocaine Screen U Marijuana (THC) Screen Alcohol, Quantitative 03/31/19 04/01/19 04/01/19 20:39 00:12 00:12 WBC RBC Hgb Hct MCV MCH MCHC RDW Plt Count MPV Absolute Neuts (auto) Neutrophils % Lymphocytes % Monocytes % Eosinophils % Basophils % Nucleated RBC % PT with INR INR PTT (Actin FS) VBG pH POC VBG pCO2 POC VBG pO2 VBG HCO3 VBG O2 Sat (Gricelda) VBG Base Excess Sodium Potassium Chloride Carbon Dioxide Anion Gap BUN Creatinine Est GFR (CKD-EPI)AfAm Est GFR (CKD-EPI)NonAf Random Glucose Lactic Acid Calcium Magnesium Iron TIBC Iron Saturation Unsaturated IBC Ferritin Total Bilirubin AST ALT Alkaline Phosphatase Creatine Kinase Creatine Kinase Index CK-MB (CK-2) Troponin I Total Protein Albumin TSH Urine Color Yellow Urine Appearance Clear Urine pH 6.0 Ur Specific [place] 1.020 Urine Protein 1+ H Urine Glucose (UA) Negative Urine Ketones Negative Urine Blood Negative Urine Nitrite Negative Urine Bilirubin Negative Urine Urobilinogen 1.0 Ur Leukocyte Esterase Negative Urine WBC (Auto) 0 Urine RBC (Auto) 0 Urine Casts (Auto) 16 U Epithel Cells (Auto) 2.3 Urine Bacteria (Auto) 1.0 Ur Random Creatinine 220.0 H Ur Random Sodium Ur Random Potassium Ur Random Chloride CSF Appearance CSF Color CSF WBC CSF RBC CSF Neutrophils CSF Lymphocytes CSF Monocytes CSF Eosinophils CSF Basophils CSF Macrophages CSF Plasma Cells CSF Other Cells CSF Diff Comment CSF Comment CSF Glucose CSF Total Protein Opiates Screen Negative Methadone Screen Negative Barbiturate Screen Negative Phencyclidine Screen Negative Ur Amphetamines Screen Negative MDMA (Ecstasy) Screen Negative Benzodiazepines Screen Negative Cocaine Screen Negative U Marijuana (THC) Screen Negative Alcohol, Quantitative 04/01/19 04/01/19 04/01/19 00:12 02:00 02:00 WBC RBC Hgb Hct MCV MCH MCHC RDW Plt Count MPV Absolute Neuts (auto) Neutrophils % Lymphocytes % Monocytes % Eosinophils % Basophils % Nucleated RBC % PT with INR INR PTT (Actin FS) VBG pH POC VBG pCO2 POC VBG pO2 VBG HCO3 VBG O2 Sat (Gricelda) VBG Base Excess Sodium Potassium Chloride Carbon Dioxide Anion Gap BUN Creatinine Est GFR (CKD-EPI)AfAm Est GFR (CKD-EPI)NonAf Random Glucose Lactic Acid Calcium Magnesium Iron TIBC Iron Saturation Unsaturated IBC Ferritin Total Bilirubin AST ALT Alkaline Phosphatase Creatine Kinase Creatine Kinase Index CK-MB (CK-2) Troponin I Total Protein Albumin TSH Urine Color Urine Appearance Urine pH Ur Specific [place] Urine Protein Urine Glucose (UA) Urine Ketones Urine Blood Urine Nitrite Urine Bilirubin Urine Urobilinogen Ur Leukocyte Esterase Urine WBC (Auto) Urine RBC (Auto) Urine Casts (Auto) U Epithel Cells (Auto) Urine Bacteria (Auto) Ur Random Creatinine Ur Random Sodium 46 Ur Random Potassium 85.0 Ur Random Chloride 74 L CSF Appearance Clear Cancelled CSF Color Colorless Cancelled CSF WBC 1 Cancelled CSF RBC 30 Cancelled CSF Neutrophils No Result Required. Cancelled CSF Lymphocytes No Result Required. Cancelled CSF Monocytes Cancelled CSF Eosinophils No Result Required. Cancelled CSF Basophils No Result Required. Cancelled CSF Macrophages No Result Required. Cancelled CSF Plasma Cells No Result Required. Cancelled CSF Other Cells Cancelled CSF Diff Comment No Result Required. Cancelled CSF Comment No diff needed Cancelled CSF Glucose 86 H Cancelled CSF Total Protein 51 H Cancelled Opiates Screen Methadone Screen Barbiturate Screen Phencyclidine Screen Ur Amphetamines Screen MDMA (Ecstasy) Screen Benzodiazepines Screen Cocaine Screen U Marijuana (THC) Screen Alcohol, Quantitative 04/01/19 04/01/19 04/01/19 02:30 07:10 07:10 WBC 9.7 RBC 3.77 L Hgb 10.5 L Hct 32.5 L MCV 86.2 MCH 27.8 MCHC 32.2 RDW 17.4 H Plt Count 140 D MPV 9.3 Absolute Neuts (auto) Neutrophils % Lymphocytes % Monocytes % Eosinophils % Basophils % Nucleated RBC % PT with INR INR PTT (Actin FS) VBG pH POC VBG pCO2 POC VBG pO2 VBG HCO3 VBG O2 Sat (Gricelda) VBG Base Excess Sodium 145 Potassium 3.8 Chloride 111 H Carbon Dioxide 29 Anion Gap 6 L BUN 24.9 H Creatinine 1.1 Est GFR (CKD-EPI)AfAm 79.52 Est GFR (CKD-EPI)NonAf 68.61 Random Glucose 126 H Lactic Acid Calcium 8.1 L Magnesium 2.2 Iron TIBC Iron Saturation Unsaturated IBC Ferritin Total Bilirubin 0.6 AST 21 ALT 13 Alkaline Phosphatase 72 Creatine Kinase Creatine Kinase Index CK-MB (CK-2) Troponin I Total Protein 6.2 L Albumin 2.8 L TSH 2.47 Urine Color Urine Appearance Urine pH Ur Specific [place] Urine Protein Urine Glucose (UA) Urine Ketones Urine Blood Urine Nitrite Urine Bilirubin Urine Urobilinogen Ur Leukocyte Esterase Urine WBC (Auto) Urine RBC (Auto) Urine Casts (Auto) U Epithel Cells (Auto) Urine Bacteria (Auto) Ur Random Creatinine Ur Random Sodium Ur Random Potassium Ur Random Chloride CSF Appearance CSF Color CSF WBC CSF RBC CSF Neutrophils CSF Lymphocytes CSF Monocytes CSF Eosinophils CSF Basophils CSF Macrophages CSF Plasma Cells CSF Other Cells CSF Diff Comment CSF Comment CSF Glucose CSF Total Protein Opiates Screen Methadone Screen Barbiturate Screen Phencyclidine Screen Ur Amphetamines Screen MDMA (Ecstasy) Screen Benzodiazepines Screen Cocaine Screen U Marijuana (THC) Screen Alcohol, Quantitative < 3.0 04/01/19 04/01/19 04/01/19 07:10 07:10 07:10 WBC RBC Hgb Hct MCV MCH MCHC RDW Plt Count MPV Absolute Neuts (auto) Neutrophils % Lymphocytes % Monocytes % Eosinophils % Basophils % Nucleated RBC % PT with INR INR PTT (Actin FS) VBG pH POC VBG pCO2 POC VBG pO2 VBG HCO3 VBG O2 Sat ([place]) VBG Base Excess Sodium Potassium Chloride Carbon Dioxide Anion Gap BUN Creatinine Est GFR (CKD-EPI)AfAm Est GFR (CKD-EPI)NonAf Random Glucose Lactic Acid Calcium Magnesium Iron 21 L TIBC 173 L Iron Saturation 12 L Unsaturated IBC 152 L Ferritin 553.4 H Total Bilirubin AST ALT Alkaline Phosphatase Creatine Kinase 248 Creatine Kinase Index 0.8 CK-MB (CK-2) 2.1 Troponin I Total Protein Albumin TSH Urine Color Urine Appearance Urine pH Ur Specific [place] Urine Protein Urine Glucose (UA) Urine Ketones Urine Blood Urine Nitrite Urine Bilirubin Urine Urobilinogen Ur Leukocyte Esterase Urine WBC (Auto) Urine RBC (Auto) Urine Casts (Auto) U Epithel Cells (Auto) Urine Bacteria (Auto) Ur Random Creatinine Ur Random Sodium Ur Random Potassium Ur Random Chloride CSF Appearance CSF Color CSF WBC CSF RBC CSF Neutrophils CSF Lymphocytes CSF Monocytes CSF Eosinophils CSF Basophils CSF Macrophages CSF Plasma Cells CSF Other Cells CSF Diff Comment CSF Comment CSF Glucose CSF Total Protein Opiates Screen Methadone Screen Barbiturate Screen Phencyclidine Screen Ur Amphetamines Screen MDMA (Ecstasy) Screen Benzodiazepines Screen Cocaine Screen U Marijuana (THC) Screen Alcohol, Quantitative < 3.0 CT head results reviewed CXR images and results reviewed ASSESSMENT AND PLAN: 68 yom with PMHx of hemorrhagic stroke (x4 with L sided residual weakness), hypertension, hyperlipidemia, gout, prior ED visit with ETOH intoxication admitted with fevers, lethargy, AMS and poor oral intake x 1 day -Fevers/AMS, r/o encephalitis, r/o ETOH withdrawal with aspiration , r/o CVA with aspiration vs seizure though low suspicion -H/o Haemorrhagic CVA x 4 with left sided weakness -HTN -HLD -Gout Plan: LP results noted 1 WBC, argues against bacterial meningitis. Follow up CSF studies/cultures. MRI brain, neuro checks, neurology input. Patient with prior ED visit in 2018 with ETOH intoxication, unclear if contributory to current presentation, ?ETOH withdrawal with aspiration. Retrieve more information from family. Drug screen neg. Monitor for withdrawals. CT chest/A/P to assess for occult source. Emperic Ceftriaxone/ampicillin/acyclovir, follow up with ID. Aspiration precautions, NPO till mental status better. Speech/swallow input. IVF. PO coreg/hydralazine as able. Change to IV if concerns for aspiration. DvTPPX heparin Dispo pending clinical improvement. Discussed with nursing and neurology.
--- NOTE | 2019-04-01 11:32 | PN ---
Physical Exam: SUBJECTIVE: Patient seen and examined. Son at bedside. Pt doing slightly better than yesterday. OBJECTIVE: Vital Signs Period Temp Pulse Resp BP Sys/Flores Pulse Ox Last 24 Hr 97.8 F-102.2 F 54-78 16-20 137-158/71-84 95-100 Gen: lethargic, oriented to person HEENT: NCAT, sluggish pupils Neck: supple, no jvd Cardio: rrr, no mrg, s1s2 Pulm: cta b/l Abd: soft, nontender, nondistended Laboratory Results - last 24 hr 03/31/19 03/31/19 03/31/19 17:03 18:03 18:03 WBC 13.5 H RBC 3.93 L Hgb 10.8 L Hct 33.8 L MCV 86.0 MCH 27.4 MCHC 31.9 L RDW 17.1 H Plt Count 180 MPV 10.0 Absolute Neuts (auto) 10.8 H Neutrophils % 80.1 Lymphocytes % 12.7 Monocytes % 6.6 Eosinophils % 0.1 Basophils % 0.5 Nucleated RBC % 0 PT with INR INR PTT (Actin FS) VBG pH POC VBG pCO2 POC VBG pO2 VBG HCO3 VBG O2 Sat (Gricelda) VBG Base Excess Sodium Potassium Chloride Carbon Dioxide Anion Gap BUN Creatinine Est GFR (CKD-EPI)AfAm Est GFR (CKD-EPI)NonAf Random Glucose Lactic Acid 1.6 Calcium Magnesium Iron TIBC Iron Saturation Unsaturated IBC Ferritin Total Bilirubin AST ALT Alkaline Phosphatase Creatine Kinase Creatine Kinase Index CK-MB (CK-2) Troponin I < 0.02 Total Protein Albumin TSH Urine Color Urine Appearance Urine pH Ur Specific Fisher Urine Protein Urine Glucose (UA) Urine Ketones Urine Blood Urine Nitrite Urine Bilirubin Urine Urobilinogen Ur Leukocyte Esterase Urine WBC (Auto) Urine RBC (Auto) Urine Casts (Auto) U Epithel Cells (Auto) Urine Bacteria (Auto) Ur Random Creatinine Ur Random Sodium Ur Random Potassium Ur Random Chloride CSF Appearance CSF Color CSF WBC CSF RBC CSF Neutrophils CSF Lymphocytes CSF Monocytes CSF Eosinophils CSF Basophils CSF Macrophages CSF Plasma Cells CSF Other Cells CSF Diff Comment CSF Comment CSF Glucose CSF Total Protein Opiates Screen Methadone Screen Barbiturate Screen Phencyclidine Screen Ur Amphetamines Screen MDMA (Ecstasy) Screen Benzodiazepines Screen Cocaine Screen U Marijuana (THC) Screen Alcohol, Quantitative 03/31/19 03/31/19 03/31/19 18:03 18:03 18:03 WBC RBC Hgb Hct MCV MCH MCHC RDW Plt Count MPV Absolute Neuts (auto) Neutrophils % Lymphocytes % Monocytes % Eosinophils % Basophils % Nucleated RBC % PT with INR 15.50 H INR 1.31 H PTT (Actin FS) 31.6 VBG pH 7.39 POC VBG pCO2 49.3 POC VBG pO2 < 49 H VBG HCO3 29.0 VBG O2 Sat (Gricelda) 40.8 L VBG Base Excess 3.5 H Sodium 144 Potassium 4.3 Chloride 109 H Carbon Dioxide 29 Anion Gap 6 L BUN 33.4 H Creatinine 1.6 H Est GFR (CKD-EPI)AfAm 50.55 Est GFR (CKD-EPI)NonAf 43.62 Random Glucose 126 H Lactic Acid Calcium 8.8 Magnesium Iron TIBC Iron Saturation Unsaturated IBC Ferritin Total Bilirubin 0.9 AST 28 ALT 17 Alkaline Phosphatase 74 Creatine Kinase Creatine Kinase Index CK-MB (CK-2) Troponin I Total Protein 6.7 Albumin 3.2 L TSH Urine Color Urine Appearance Urine pH Ur Specific Fisher Urine Protein Urine Glucose (UA) Urine Ketones Urine Blood Urine Nitrite Urine Bilirubin Urine Urobilinogen Ur Leukocyte Esterase Urine WBC (Auto) Urine RBC (Auto) Urine Casts (Auto) U Epithel Cells (Auto) Urine Bacteria (Auto) Ur Random Creatinine Ur Random Sodium Ur Random Potassium Ur Random Chloride CSF Appearance CSF Color CSF WBC CSF RBC CSF Neutrophils CSF Lymphocytes CSF Monocytes CSF Eosinophils CSF Basophils CSF Macrophages CSF Plasma Cells CSF Other Cells CSF Diff Comment CSF Comment CSF Glucose CSF Total Protein Opiates Screen Methadone Screen Barbiturate Screen Phencyclidine Screen Ur Amphetamines Screen MDMA (Ecstasy) Screen Benzodiazepines Screen Cocaine Screen U Marijuana (THC) Screen Alcohol, Quantitative 03/31/19 04/01/19 04/01/19 20:39 00:12 00:12 WBC RBC Hgb Hct MCV MCH MCHC RDW Plt Count MPV Absolute Neuts (auto) Neutrophils % Lymphocytes % Monocytes % Eosinophils % Basophils % Nucleated RBC % PT with INR INR PTT (Actin FS) VBG pH POC VBG pCO2 POC VBG pO2 VBG HCO3 VBG O2 Sat (Gricelda) VBG Base Excess Sodium Potassium Chloride Carbon Dioxide Anion Gap BUN Creatinine Est GFR (CKD-EPI)AfAm Est GFR (CKD-EPI)NonAf Random Glucose Lactic Acid Calcium Magnesium Iron TIBC Iron Saturation Unsaturated IBC Ferritin Total Bilirubin AST ALT Alkaline Phosphatase Creatine Kinase Creatine Kinase Index CK-MB (CK-2) Troponin I Total Protein Albumin TSH Urine Color Yellow Urine Appearance Clear Urine pH 6.0 Ur Specific Fisher 1.020 Urine Protein 1+ H Urine Glucose (UA) Negative Urine Ketones Negative Urine Blood Negative Urine Nitrite Negative Urine Bilirubin Negative Urine Urobilinogen 1.0 Ur Leukocyte Esterase Negative Urine WBC (Auto) 0 Urine RBC (Auto) 0 Urine Casts (Auto) 16 U Epithel Cells (Auto) 2.3 Urine Bacteria (Auto) 1.0 Ur Random Creatinine 220.0 H Ur Random Sodium Ur Random Potassium Ur Random Chloride CSF Appearance CSF Color CSF WBC CSF RBC CSF Neutrophils CSF Lymphocytes CSF Monocytes CSF Eosinophils CSF Basophils CSF Macrophages CSF Plasma Cells CSF Other Cells CSF Diff Comment CSF Comment CSF Glucose CSF Total Protein Opiates Screen Negative Methadone Screen Negative Barbiturate Screen Negative Phencyclidine Screen Negative Ur Amphetamines Screen Negative MDMA (Ecstasy) Screen Negative Benzodiazepines Screen Negative Cocaine Screen Negative U Marijuana (THC) Screen Negative Alcohol, Quantitative 04/01/19 04/01/19 04/01/19 00:12 02:00 02:00 WBC RBC Hgb Hct MCV MCH MCHC RDW Plt Count MPV Absolute Neuts (auto) Neutrophils % Lymphocytes % Monocytes % Eosinophils % Basophils % Nucleated RBC % PT with INR INR PTT (Actin FS) VBG pH POC VBG pCO2 POC VBG pO2 VBG HCO3 VBG O2 Sat (Gricelda) VBG Base Excess Sodium Potassium Chloride Carbon Dioxide Anion Gap BUN Creatinine Est GFR (CKD-EPI)AfAm Est GFR (CKD-EPI)NonAf Random Glucose Lactic Acid Calcium Magnesium Iron TIBC Iron Saturation Unsaturated IBC Ferritin Total Bilirubin AST ALT Alkaline Phosphatase Creatine Kinase Creatine Kinase Index CK-MB (CK-2) Troponin I Total Protein Albumin TSH Urine Color Urine Appearance Urine pH Ur Specific Fisher Urine Protein Urine Glucose (UA) Urine Ketones Urine Blood Urine Nitrite Urine Bilirubin Urine Urobilinogen Ur Leukocyte Esterase Urine WBC (Auto) Urine RBC (Auto) Urine Casts (Auto) U Epithel Cells (Auto) Urine Bacteria (Auto) Ur Random Creatinine Ur Random Sodium 46 Ur Random Potassium 85.0 Ur Random Chloride 74 L CSF Appearance Clear Cancelled CSF Color Colorless Cancelled CSF WBC 1 Cancelled CSF RBC 30 Cancelled CSF Neutrophils No Result Required. Cancelled CSF Lymphocytes No Result Required. Cancelled CSF Monocytes Cancelled CSF Eosinophils No Result Required. Cancelled CSF Basophils No Result Required. Cancelled CSF Macrophages No Result Required. Cancelled CSF Plasma Cells No Result Required. Cancelled CSF Other Cells Cancelled CSF Diff Comment No Result Required. Cancelled CSF Comment No diff needed Cancelled CSF Glucose 86 H Cancelled CSF Total Protein 51 H Cancelled Opiates Screen Methadone Screen Barbiturate Screen Phencyclidine Screen Ur Amphetamines Screen MDMA (Ecstasy) Screen Benzodiazepines Screen Cocaine Screen U Marijuana (THC) Screen Alcohol, Quantitative 04/01/19 04/01/19 04/01/19 02:30 07:10 07:10 WBC 9.7 RBC 3.77 L Hgb 10.5 L Hct 32.5 L MCV 86.2 MCH 27.8 MCHC 32.2 RDW 17.4 H Plt Count 140 D MPV 9.3 Absolute Neuts (auto) Neutrophils % Lymphocytes % Monocytes % Eosinophils % Basophils % Nucleated RBC % PT with INR INR PTT (Actin FS) VBG pH POC VBG pCO2 POC VBG pO2 VBG HCO3 VBG O2 Sat (Gricelda) VBG Base Excess Sodium 145 Potassium 3.8 Chloride 111 H Carbon Dioxide 29 Anion Gap 6 L BUN 24.9 H Creatinine 1.1 Est GFR (CKD-EPI)AfAm 79.52 Est GFR (CKD-EPI)NonAf 68.61 Random Glucose 126 H Lactic Acid Calcium 8.1 L Magnesium 2.2 Iron TIBC Iron Saturation Unsaturated IBC Ferritin Total Bilirubin 0.6 AST 21 ALT 13 Alkaline Phosphatase 72 Creatine Kinase Creatine Kinase Index CK-MB (CK-2) Troponin I Total Protein 6.2 L Albumin 2.8 L TSH 2.47 Urine Color Urine Appearance Urine pH Ur Specific Fisher Urine Protein Urine Glucose (UA) Urine Ketones Urine Blood Urine Nitrite Urine Bilirubin Urine Urobilinogen Ur Leukocyte Esterase Urine WBC (Auto) Urine RBC (Auto) Urine Casts (Auto) U Epithel Cells (Auto) Urine Bacteria (Auto) Ur Random Creatinine Ur Random Sodium Ur Random Potassium Ur Random Chloride CSF Appearance CSF Color CSF WBC CSF RBC CSF Neutrophils CSF Lymphocytes CSF Monocytes CSF Eosinophils CSF Basophils CSF Macrophages CSF Plasma Cells CSF Other Cells CSF Diff Comment CSF Comment CSF Glucose CSF Total Protein Opiates Screen Methadone Screen Barbiturate Screen Phencyclidine Screen Ur Amphetamines Screen MDMA (Ecstasy) Screen Benzodiazepines Screen Cocaine Screen U Marijuana (THC) Screen Alcohol, Quantitative < 3.0 04/01/19 04/01/19 04/01/19 07:10 07:10 07:10 WBC RBC Hgb Hct MCV MCH MCHC RDW Plt Count MPV Absolute Neuts (auto) Neutrophils % Lymphocytes % Monocytes % Eosinophils % Basophils % Nucleated RBC % PT with INR INR PTT (Actin FS) VBG pH POC VBG pCO2 POC VBG pO2 VBG HCO3 VBG O2 Sat (Gricelda) VBG Base Excess Sodium Potassium Chloride Carbon Dioxide Anion Gap BUN Creatinine Est GFR (CKD-EPI)AfAm Est GFR (CKD-EPI)NonAf Random Glucose Lactic Acid Calcium Magnesium Iron 21 L TIBC 173 L Iron Saturation 12 L Unsaturated IBC 152 L Ferritin 553.4 H Total Bilirubin AST ALT Alkaline Phosphatase Creatine Kinase 248 Creatine Kinase Index 0.8 CK-MB (CK-2) 2.1 Troponin I Total Protein Albumin TSH Urine Color Urine Appearance Urine pH Ur Specific Fisher Urine Protein Urine Glucose (UA) Urine Ketones Urine Blood Urine Nitrite Urine Bilirubin Urine Urobilinogen Ur Leukocyte Esterase Urine WBC (Auto) Urine RBC (Auto) Urine Casts (Auto) U Epithel Cells (Auto) Urine Bacteria (Auto) Ur Random Creatinine Ur Random Sodium Ur Random Potassium Ur Random Chloride CSF Appearance CSF Color CSF WBC CSF RBC CSF Neutrophils CSF Lymphocytes CSF Monocytes CSF Eosinophils CSF Basophils CSF Macrophages CSF Plasma Cells CSF Other Cells CSF Diff Comment CSF Comment CSF Glucose CSF Total Protein Opiates Screen Methadone Screen Barbiturate Screen Phencyclidine Screen Ur Amphetamines Screen MDMA (Ecstasy) Screen Benzodiazepines Screen Cocaine Screen U Marijuana (THC) Screen Alcohol, Quantitative < 3.0 Active Medications Generic Name Dose Route Start Last Admin Trade Name Freq PRN Reason Stop Dose Admin Atorvastatin Calcium 80 mg 04/01/19 22:00 Lipitor - PO HS MATTIE Donepezil HCl 5 mg 04/01/19 10:00 Aricept - PO DAILY MATTIE Heparin Sodium (Porcine) 5,000 unit 04/01/19 06:00 04/01/19 07:50 Heparin - SQ 5,000 unit TID MATTIE Administration Acyclovir 700 mg/ Dextrose 114 mls @ 100 mls/hr 04/01/19 15:45 IVPB Q12H MATTIE Ampicillin Sodium 2 gm/ Sodium 100 mls @ 200 mls/hr 04/01/19 13:00 Chloride IVPB 04/01/19 13:29 ONCE ONE Protocol Dextrose/Sodium Chloride 1,000 mls @ 100 mls/hr 04/01/19 10:45 D5-1/2ns - IV ASDIR MATTIE Ceftriaxone Sodium 2 gm/ 100 mls @ 200 mls/hr 04/01/19 11:30 Dextrose IVPB DAILY [facility] Protocol ASSESSMENT/PLAN: Darnell Jon is a 68 year old Dominican speaking male with a past medical history of 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 Altered Mental Status secondary to sepsis of unknown origin - patient febrile and septic with no clear source, UA negative, CXR negative, LP pending - CT chest with infiltrates - brain MRI negative - covered empirically for meningitis - ceftriaxone, vancomycin, ampicillin, acyclovir - NS at 100 cc/hr - continue to trend WBC, fevers, signs of infection - urine and blood cultures pending - ID consulted - Neurology consulted - dysphagia and fall precautions - urine toxicology negative - monitor for electrolytes disturbances Hypertension - hold BP meds in setting of sepsis - monitor BP and low threshold to restart BP meds in light of history of hemorrhagic stroke Hyperlipidemia - continue Lipitor Anemia - unclear of baseline - iron studies - may benefit from iron supplementation ANDREW/CKD - renal/bladder U/S: right renal cyst, enlarged prostate - urine CRE and electrolytes ordered - CPK wnl -hold losartan as pt came with ANDREW Visit type - Emergency Visit Emergency Visit: No - New Patient This patient is new to me today: Yes Date on this admission: 04/01/19 - Critical Care Critical Care patient: No ATTENDING PHYSICIAN STATEMENT I saw and evaluated the patient. I reviewed the resident's note and discussed the case with the resident. I agree with the resident's findings and plan as documented. SUBJECTIVE: OBJECTIVE: ASSESSMENT AND PLAN:
--- NOTE | 2019-04-01 11:50 | CONSULT ---
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 Altered Mental Status Hypertension Hyperlipidemia Anemia ANDREW/CKD Altered Mental Status secondary to sepsis of unknown origin - patient febrile and septic with no clear source, UA negative, CXR negative, LP pending - CT head (-) Pt admitted a year ago following fall/intoxication. No recent admissions. History Source: Medical Record Limitations to Obtaining History: Clinical Condition - Smoking History Smoking history: Unknown if ever smoked Have you smoked in the past 12 months: No - Alcohol/Substance Use Hx Alcohol Use: (unknown) History - Admission Reason For Visit: SYSTEMIC INFLAMMATORY RESPONSE SYNDROME(SIRS) - Diagnostics X-ray: Report Reviewed (cxr-(-)) CT Scan: Report Reviewed ( Head CT with R sided parietal chronic infarct, chronic right thalamocapsular infarct, chronic left thalamic infarct, moderate to marked periventricular subcortical gliosis within the frontal lobes, no obstructive hydrocephalus, no acute bleeds) - General Mental Status: Lethargic Attention: Severe Impairment Head/Neck Control: Fair - Hearing Hearing: Functional Hearing Aide: No With Patient: No Speech Evaluation - Communication Primary Language: BARBADIAN Communication: Yes: Simple Responses (too lethargic for complete assessment. Told me his name.) - Speech Production Intelligibility: Yes: WNL - Speech Characteristics Voice Loudness: Normal Voice Pitch: Yes: Normal Voice Phonatory-based Quality: Yes: Normal Nasal Resonance: Normal Articulation: Yes: Precise - Language/Auditory Comprehension Follows: Yes: 1 Stage Simple Commands - Swallow Evaluation/Bedside Assessment Current Nutritional Intake: NPO Oral Secretions: Yes: WFL Dentition: Yes: Adequate Laryngeal Elevation: WFL Laryngeal Movement: Able to Palpate Bolus Size: WFL Labial Seal: WFL Oral Prep Time: WFL A-P Transit: WFL Timing of Swallow: WFL Coughing/Throat Clear: No (trial of puree only due to lethargy) Recommendations - Speech Evaluation, Impression/Plan Impression: Lethargic, attempts to open eyes, said his name, immediately back to sleep. o2 sat 95% per nursing.Nursing report that he falls asleep while speaking. Brisk swallow. - Dysphagia Impressions/Plan Dysphagia Impressions: Minimal Impairment (with puree. Too lethargic for full assessment.) *Silent aspiration: cannot be R/O at bedside Recommendations: Other (Feed only if sufficiently alert. To reassess if pt becomes more alert) - Recommendations Diet Consistency: Dysphagia Pureed Medication Administration: Crushed with applesauce Liquids: [place] Thick Supplement: Magic Cup
[2019-04-01] MEDS ORDERED: DEXTROSE 5%-WATER 100 ML IVPB ONE (12:12)
[2019-04-01] MEDS: CEFTRIAXONE 2 GM in DEXTROSE 5%-WATER 100 ML IVPB SCH (12:25)
--- NOTE | 2019-04-01 13:06 | EKG ---
Test Reason : Blood Pressure : / mmHG Vent. Rate : 073 BPM Atrial Rate : 073 BPM P-R Int : 160 ms QRS Dur : 094 ms QT Int : 424 ms P-R-T Axes : 065 042 061 degrees QTc Int : 467 ms NORMAL SINUS RHYTHM VOLTAGE CRITERIA FOR LEFT VENTRICULAR HYPERTROPHY ABNORMAL ECG NO PREVIOUS ECGS AVAILABLE Confirmed by MD Dixon Edward ([id number]) on 04/01/2019 1:05:47 PM Referred By: Confirmed By:Jim Dixon MD
[2019-04-01] MEDS: DONEPEZIL HCL 5 MG TABLET (FP) PO SCH (13:39)
[2019-04-01] MEDS: hydrALAZINE HCL 25 MG TABLET (FP) PO SCH (13:39)
[2019-04-01] MEDS: DOCUSATE SODIUM 100 MG CAPSULE (FP) PO SCH ×2 (13:39→21:56)
[2019-04-01] MEDS: CARVEDILOL 12.5 MG TABLET (FP) PO SCH ×2 (13:40→21:47)
[2019-04-01] MEDS ORDERED: PNEUMOC 13-VAL CONJ-DIP CRM/PF 0.5 ML DISP.SYRIN IM ONE (14:07)
--- NOTE | 2019-04-01 16:16 | PN ---
Progress Note (short form) - Note Progress Note: ID CONSULT DICTATED BIBASILAR PNEUMONIA ? CAP ? ATYPICAL ? ASP PROBABLE TOXIC METABOLIC ENCEPHALOPATHY DOUBT MENINGITIS R/O STROKE PROGRESSION AWAIT C/S EMPIRIC CEFTRIAXONE/ FLAGYL FOR POSSIBLE ASP MRI ASP PRECAUTIONS
[2019-04-01] MEDS: SODIUM CHLORIDE 1,000 ML IV SCH (16:33)
--- NOTE | 2019-04-01 18:10 | CONS ---
DATE OF CONSULTATION: DATE OF DICTATION: 04/01/2019 INFECTIOUS DISEASE CONSULTATION HISTORY OF PRESENT ILLNESS: A 68-year-old male evaluated for possible meningitis. He has a history of prior CVA. He was brought to the emergency room by a family member after he was noted to be confused, with increased debilitation and inability to perform functions he was normally capable of performing. He was also noted to have poor oral intake. He was evaluated in the emergency room, where he was noted to have fever. Source of fever was not apparent. A CAT scan of the head was performed and was negative for acute changes. Because of the fever without source, a lumbar puncture was performed. He was found to have 1 white cell, 30 red cells, an elevated glucose and a slightly elevated protein at 51. He was empirically treated with vancomycin, ceftriaxone, ampicillin and acyclovir. Gram stain of the spinal fluid was negative for organisms or polys. Spinal fluid culture thus far negative. A CAT scan of the chest, abdomen and pelvis was performed. He was found on the chest CT to have patchy infiltrates involving both lower lobes as well as the right upper lung. His hospital course was significant for improvement in his temperature and his white blood cell count. Family reports that his mental status waxes and wanes, and he is increasingly somnolent and dozes off during conversations. He was seen in consultation by Neurology. An MRI is ordered. No reports of labored breathing, cough, sputum production. No reported vomiting or loss of consciousness. The patient does not have a Sommer catheter in place. PAST MEDICAL HISTORY: Positive for previous stroke with hemorrhagic conversion, residual left-sided weakness, hypertension, hyperlipidemia, gout. ALLERGIES: No known drug allergies. SOCIAL HISTORY: Resides at home with family members. No active tobacco or alcohol use. REVIEW OF SYSTEMS: Neurologic: No loss of consciousness or seizure activity. Positive hemiparesis. Cardiac: Negative for chest pain or palpitations. Respiratory: Negative for cough or sputum production. Gastrointestinal: Negative for vomiting or diarrhea. Genitourinary: Negative for urinary tract infection. LABORATORY DATA: White count on admission 13.5, presently 9.7; hematocrit 32.5, platelets 140. BUN 24, creatinine 1.1. Urinalysis: No white cells. Spinal fluid: 1 white cell, 30 red cells, glucose 86, protein 51. Toxicology screen negative. PHYSICAL EXAMINATION: General: He is awake. He is not conversant. Vital Signs: Temperature 98.9, blood pressure 155/67, pulse 72 and regular, respirations 20 per minute. HEENT: Sclerae anicteric. Dry mucous membranes. Cardiac: Heart sounds S1, S2. Lungs: Poor inspiratory effort. Abdomen: Soft, nontender. Extremities: Negative for edema. IMPRESSION: 1. Bibasilar pneumonia. 2. Probable toxic metabolic encephalopathy secondary to infection. 3. No evidence of central nervous system infection. 4. Rule out stroke progression. 5. Leukocytosis, improved. 6. Azotemia, improved. PLAN: I would empirically treat for community-acquired versus atypical pneumonia versus aspiration with ceftriaxone and Flagyl. Await MRI of the head. Aspiration precautions. I will follow. Thank you for the kind referral. BRITTANY MANDUJANO M.D. [id number]
[2019-04-01] MEDS: ATORVASTATIN CA 80 MG TABLET (FP) PO SCH (21:56)
[2019-04-01] MEDS: MIRTAZAPINE 15 MG TABLET (FP) PO SCH (21:56)
[2019-04-02] MEDS: HEPARIN NA (PORCINE) 5,000 UNITS/ML 1ML VIAL SQ SCH ×3 (06:43→22:33)
[2019-04-02 07:31] LABS: HEMATOCRIT 26.5 % (35.4-49); HEMOGLOBIN 8.8 GM/dL (11.7-16.9); MCH 27.8 pg (25.7-33.7); MCHC 33.1 g/dl (32.0-35.9); MEAN CELL VOLUME 84.1 fl (80-96); MEAN PLT VOLUME 9.4 fl (7.5-11.1); PLATELET COUNT 139 K/MM3 (134-434); RBC 3.15 M/mm3 (4.00-5.60); RDW 17.1 % (11.9-15.9); WHITE BLOOD COUNT 5.8 K/mm3 (4.0-10.0)
[2019-04-02 08:11] LABS: BLOOD UREA NITROGEN 17.5 mg/dL (7-18); CALCIUM 8.3 mg/dL (8.5-10.1); POTASSIUM 3.7 mmol/L (3.5-5.1)
--- NOTE | 2019-04-02 08:43 | PN ---
Progress Note (short form) - Note Progress Note: Neurology CHIEF COMPLAINT: altered mental status HISTORY OF PRESENT ILLNESS: 68 year old Guamanian speaking male with a past medical history of hemorrhagic stroke (x4 with L sided residual weakness), hypertension, hyperlipidemia, gout who presented to the ED with family with altered mental status. The patient was somnolent and was unable to answer questions. History obtained from chart. Reportedly, patient was at his baseline mental status which was conversant in small phrases, following simple commands, eating normally, minimal walking with assistance, usually alert and oriented to self and place until night before admission when it was noticed he was more lethargic than usual. Patient was more unsteady, was not making sense with his words, and not consuming any foods this morning. The patient does not normally have any complaints and had no acute complaints as of recently. He had been unable to walk the last 3 weeks due to increased unsteadiness and pain in his knee. Additionally, the son noted a non-productive cough that appeared this morning as well as the patient having subjective warmth when forehead was felt. Patient was brought to the ED as the family was worried about a recurrence of the strokes that patient had. Son denied any recent changes to medication, alcohol or drug intoxication. Son stated that the patient had urinary incontinence and ambulates very poorly with a cane or walker but usually requires assistance to ambulate. Of note, he had slightly elevated white count of 12.[address] completed and demonstrated R sided parietal chronic infarct, chronic right thalamocapsular infarct, chronic left thalamic infarct, moderate to marked periventricular subcortical gliosis within the frontal lobes, no obstructive hydrocephalus, no acute bleeds CXR with no acute pathology. spinal tap was also completed and demonstrated elevated glucose of 86 and slightly elevated protein of 51 elevated protein of 51. Brain MRI completed - no evidence of acute or subacute infarct; enlarged lateral and third ventricles. Also prioor R MCA infarct along with white matter changes likely due to HTN, could not rule out angiopathy. Renal/Bladder US shows right renal cysts and enlarged prostate. Patient more awake, alert, conversive, interactive with examiner. Knows he's in the hospital but could not tell me exact date. Discussed with nurse. Active Medications Atorvastatin Calcium (Lipitor -) 80 mg PO [facility] Last Admin: 04/01/19 21:56 Dose: 80 mg Carvedilol (Coreg -) 12.5 mg PO BID [facility] Last Admin: 04/01/19 21:47 Dose: Not Given Docusate Sodium (Colace -) 100 mg PO BID [facility] Last Admin: 04/01/19 21:56 Dose: 100 mg Donepezil HCl (Aricept -) 5 mg PO DAILY [facility] Last Admin: 04/01/19 13:39 Dose: 5 mg Heparin Sodium (Porcine) (Heparin -) 5,000 unit SQ TID [facility] Last Admin: 04/02/19 06:43 Dose: 5,000 unit Hydralazine HCl (Apresoline -) 25 mg PO DAILY [facility] Last Admin: 04/01/19 13:39 Dose: 25 mg Ceftriaxone Sodium 2 gm/ (Dextrose) 100 mls @ 200 mls/hr IVPB DAILY [facility]; Protocol Last Admin: 04/01/19 12:25 Dose: 200 mls/hr Sodium Chloride (Normal Saline -) 1,000 mls @ 75 mls/hr IV ASDIR [facility] Last Admin: 04/01/19 16:33 Dose: 75 mls/hr Metronidazole (Flagyl 500mg Premixed Ivpb -) 500 mg in 100 mls @ 100 mls/hr IVPB Q8H-IV [facility] Last Admin: 04/02/19 02:31 Dose: 100 mls/hr Mirtazapine (Remeron -) 7.5 mg PO HS [facility] Last Admin: 04/01/19 21:56 Dose: 7.5 mg PHYSICAL EXAMINATION Vital Signs Period Temp Pulse Resp BP Sys/Flores Pulse Ox Last 24 Hr 97.5 F-98.9 F 58-84 20-20 122-156/49-96 97 GENERAL: awake, alert, interactive. HEAD: Normal with no signs of trauma. EYES: Pupils 2mm and sluggish to light, sclera anicteric. EARS, NOSE, THROAT: Oropharynx clear without exudates. Dry mucous membranes. NECK: Supple without lymphadenopathy, JVD. LUNGS: Breath sounds equal, poorly auscultated due to patient non-compliance otherwise clear to auscultation bilaterally. No wheezes, and no crackles. HEART: Regular rate and rhythm, normal S1 and S2 without murmur, rub. ABDOMEN: Soft, nontender, not distended, normoactive bowel sounds, no guarding, no rebound, no masses. MUSCULOSKELETAL: No noted bone deformities. UPPER EXTREMITIES: 2+ pulses, warm, well-perfused. No cyanosis. No clubbing. No peripheral edema. LOWER EXTREMITIES: 1+ pulses, warm, well-perfused. No calf tenderness. No peripheral edema. NEUROLOGICAL: CN intact, moves extremities grossly, still not participating in full confrontation exam, sensory grossly intact SKIN: Warm, dry, normal turgor, noted small excoriation on left wells. CBCD WBC 5.8 K/mm3 (4.0-10.0) 04/02/19 06:15 RBC 3.15 M/mm3 (4.00-5.60) L 04/02/19 06:15 Hgb 8.8 GM/dL (11.7-16.9) L 04/02/19 06:15 Hct 26.5 % (35.4-49) L D 04/02/19 06:15 MCV 84.1 fl (80-96) 04/02/19 06:15 MCHC 33.1 g/dl (32.0-35.9) 04/02/19 06:15 RDW 17.1 % (11.9-15.9) H 04/02/19 06:15 Plt Count 139 K/MM3 (134-434) 04/02/19 06:15 MPV 9.4 fl (7.5-11.1) 04/02/19 06:15 CMP Sodium 144 mmol/L (136-145) 04/02/19 06:15 Potassium 3.7 mmol/L (3.5-5.1) 04/02/19 06:15 Chloride 110 mmol/L (98-107) H 04/02/19 06:15 Carbon Dioxide 29 mmol/L (21-32) 04/02/19 06:15 Anion Gap 5 MMOL/L (8-16) L 04/02/19 06:15 BUN 17.5 mg/dL (7-18) 04/02/19 06:15 Creatinine 1.0 mg/dL (0.55-1.3) 04/02/19 06:15 Random Glucose 100 mg/dL (74-106) 04/02/19 06:15 Calcium 8.3 mg/dL (8.5-10.1) L 04/02/19 06:15 Total Bilirubin 0.6 mg/dL (0.2-1) 04/01/19 07:10 AST 21 U/L (15-37) 04/01/19 07:10 ALT 13 U/L (13-61) 04/01/19 07:10 Alkaline Phosphatase 72 U/L (45-117) 04/01/19 07:10 Total Protein 6.2 g/dl (6.4-8.2) L 04/01/19 07:10 Albumin 2.8 g/dl (3.4-5.0) L 04/01/19 07:10 CARDIAC ENZYMES Creatine Kinase 248 U/L (26-308) 04/01/19 07:10 Troponin I < 0.02 ng/ml (0.00-0.05) 03/31/19 18:03 EKG--> NSR, LVH, no ST segment changes, Qtc 467 ASSESSMENT/PLAN: 68 year old Guamanian speaking male with a past medical history of hemorrhagic stroke (x4 with L sided residual weakness), hypertension, hyperlipidemia, gout who presented to the ED with family with altered mental status. The patient was somnolent and was unable to answer questions. History obtained from chart. eportedly, patient was at his baseline mental status which was conversant in small phrases, following simple commands, eating normally, minimal walking with assistance, usually alert and oriented to self and place until night before admission when it was noticed he was more lethargic than usual. Patient was more unsteady, was not making sense with his words, and not consuming any foods this morning. The patient does not normally have any complaints and had no acute complaints as of recently. He had been unable to walk the last 3 weeks due to increased unsteadiness and pain in his knee. Additionally, the son noted a non-productive cough that appeared this morning as well as the patient having subjective warmth when forehead was felt. Patient was brought to the ED as the family was worried about a recurrence of the strokes that patient had. Son denied any recent changes to medication, alcohol or drug intoxication. Son stated that the patient had urinary incontinence and ambulates very poorly with a cane or walker but usually requires assistance to ambulate. Of note, he had slightly elevated white count of 12.[address] completed and demonstrated R sided parietal chronic infarct, chronic right thalamocapsular infarct, chronic left thalamic infarct, moderate to marked periventricular subcortical gliosis within the frontal lobes, no obstructive hydrocephalus, no acute bleeds CXR with no acute pathology. spinal tap was also completed and demonstrelevated glucose of 86 and slightly elevated protein of 51 elevated protein of 51. Brain MRI completed - no evidence of acute or subacute infarct; enlarged lateral and third ventricles. NPH can be considered but improving clinically and may be more appropriate to re-evaluate as outpatient. Also prior R MCA infarct along with white matter changes likely due to HTN, cannot rule out angiopathy but given his history of repeat CVA more likely due to small vessel disease and microvascular change. Renal/Bladder US shows right renal cysts and enlarged prostate. Patient more awake, alert, conversive, interactive with examiner. Knows he's in the hospital but could not tell me exact date. Discussed with nurse. Renal/Bladder US shows right renal cysts and enlarged prostate. ID follow up, much improved mental status. Maintain adequate hydration.
[2019-04-02] MEDS ORDERED: DEXTROSE 5%-WATER 100 ML IVPB ONE (11:11)
[2019-04-02] MEDS: hydrALAZINE HCL 25 MG TABLET (FP) PO SCH (11:20)
[2019-04-02] MEDS: DOCUSATE SODIUM 100 MG CAPSULE (FP) PO SCH ×2 (11:20→22:30)
[2019-04-02] MEDS: CARVEDILOL 12.5 MG TABLET (FP) PO SCH ×2 (11:21→22:30)
[2019-04-02] MEDS: DONEPEZIL HCL 5 MG TABLET (FP) PO SCH (11:21)
--- NOTE | 2019-04-02 12:18 | PN ---
Progress Note, [employer] - Note Progress Note: Selected Entries 04/01/19 04/01/19 04/01/19 03:40 06:00 11:50 Breakfast 0 Lunch Temperature 97.8 F 97.8 F 04/01/19 04/01/19 04/01/19 14:36 18:00 21:33 Breakfast Lunch NPO Temperature 98.9 F 98.4 F 98.0 F 04/02/19 04/02/19 02:00 07:29 Breakfast Lunch Temperature 97.5 F L 98.0 F Laboratory Tests 04/02/19 06:15 WBC 5.8 Puree/nectar ordered. Alert, verbal, disoriented to time. Knows he is in the hospital.Seen bedside, family feeding him. Able to feed himself with supervision/assistance from family. Good mastication. Overtly tolerates sips of water. Some disorganization. Coughs on pills with water at home. r/o aspiration MRI noted-Severe, chronic m/v changes. Ct scan chest-infiltrates Suggest MBS to r/o aspiration before diet upgrade.
[2019-04-02] MEDS: SODIUM CHLORIDE 1,000 ML IV SCH ×2 (12:32→18:06)
[2019-04-02] MEDS: CEFTRIAXONE 2 GM in DEXTROSE 5%-WATER 100 ML IVPB SCH (12:33)
--- NOTE | 2019-04-02 15:12 | PN ---
Teaching Attending Note Name of Resident: Jamey Frazier ATTENDING PHYSICIAN STATEMENT I saw and evaluated the patient. I reviewed the resident's note and discussed the case with the resident. I agree with the resident's findings and plan as documented. Seen and examined; no new complaints but noted concerns with swallowing. Consulted speech and swallow; pending consult completion and appreciate expert guidance. No new complaints. Incidentally noted R-index finger with DIP painful to palpation and swollen; no murmur on exam. No ossler nodes or janeway lesions. No other apparent joint involvement. Ordered imaging and ortho consult for aspiration. Does have history of gout but this is a very atypical location for a gout flare. ID saw as well; recommended to continue abx for suspected aspiration. 10 sys ROS done and negative aside from HPI VS, labs, imaging reviewed NAD, AAO, resting in bed L-index finger DIP with warmth, ptp, edema. Neurological exam consistent with prior descriptions, sensorium and motor intact , is AAOx2 at the very least. Normal mood, not agitated, flat affect RRR s1/2 NT ND +BS Head CT: R sided parietal chronic infarct, chronic right thalamocapsular infarct , chronic left thalamic infarct, moderate to marked periventricular subcortical gliosis within the frontal lobes ASSESSMENT AND PLAN:
--- NOTE | 2019-04-02 16:01 | PN ---
Physical Exam: SUBJECTIVE: Patient seen and examined at bedside. OBJECTIVE: Vital Signs Period Temp Pulse Resp BP Sys/Flores Pulse Ox Last 24 Hr 97.5 F-98.4 F 58-84 18-20 122-156/49-96 97 Gen: lethargic, oriented to person HEENT: NCAT, sluggish pupils Neck: supple, no jvd Cardio: rrr, no mrg, s1s2 Pulm: cta b/l Abd: soft, nontender, nondistended Laboratory Results - last 24 hr 04/01/19 04/02/19 04/02/19 19:15 06:15 06:15 WBC 5.8 RBC 3.15 L Hgb 8.8 L Hct 26.5 L D MCV 84.1 MCH 27.8 MCHC 33.1 RDW 17.1 H Plt Count 139 MPV 9.4 Sodium 144 Potassium 3.7 Chloride 110 H Carbon Dioxide 29 Anion Gap 5 L BUN 17.5 Creatinine 1.0 Est GFR (CKD-EPI)AfAm 89.23 Est GFR (CKD-EPI)NonAf 76.99 Random Glucose 100 Calcium 8.3 L Vitamin B12 437 Serum Folate 28 H TSH 1.10 D Free T4 1.52 H Stool Occult Blood Negative Active Medications Generic Name Dose Route Start Last Admin Trade Name Freq PRN Reason Stop Dose Admin Atorvastatin Calcium 80 mg 04/01/19 22:00 04/01/19 21:56 Lipitor - PO 80 mg HS MATTIE Administration Carvedilol 12.5 mg 04/01/19 11:45 04/02/19 11:21 Coreg - PO 12.5 mg BID [facility]IE Administration Docusate Sodium 100 mg 04/01/19 11:45 04/02/19 11:20 Colace - PO Not Given BID [facility]IE Donepezil HCl 5 mg 04/01/19 10:00 04/02/19 11:21 Aricept - PO 5 mg DAILY [facility] Administration Heparin Sodium (Porcine) 5,000 unit 04/01/19 06:00 04/02/19 15:12 Heparin - SQ 5,000 unit TID [facility]IE Administration Hydralazine HCl 25 mg 04/01/19 11:45 04/02/19 11:20 Apresoline - PO 25 mg DAILY [facility] Administration Ceftriaxone Sodium 2 gm/ 100 mls @ 200 mls/hr 04/01/19 11:30 04/02/19 12:33 Dextrose IVPB 200 mls/hr DAILY [facility] Administration Protocol Sodium Chloride 1,000 mls @ 75 mls/hr 04/01/19 15:15 04/02/19 12:32 Normal Saline - IV 75 mls/hr ASDIR [facility] Administration Metronidazole 500 mg in 100 mls @ 100 mls/hr 04/01/19 18:00 04/02/19 11:18 Flagyl 500mg Premixed Ivpb - IVPB 100 mls/hr Q8H-IV [facility]ATTIE Administration Mirtazapine 7.5 mg 04/01/19 22:00 04/01/19 21:56 Remeron - PO 7.5 mg HS [facility]IE Administration ASSESSMENT/PLAN: Darnell Jon is a 68 year old Mexican speaking male with a past medical history of 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 #Altered Mental Status secondary to sepsis of unknown origin: Improved today - patient febrile and septic with no clear source, UA negative, CXR negative, LP negative - CT chest with infiltrates - brain MRI dilated ventricles - covered empirically for meningitis - ceftriaxone, vancomycin, ampicillin, acyclovir - NS at 100 cc/hr - continue to trend WBC, fevers, signs of infection - urine and blood cultures negative - ID consulted - Neurology consulted - dysphagia and fall precautions - urine toxicology negative - monitor for electrolytes disturbances Hypertension - hold BP meds in setting of sepsis - monitor BP and low threshold to restart BP meds in light of history of hemorrhagic stroke Hyperlipidemia - continue Lipitor Normocytic Anemia - unclear of baseline - iron studies - may benefit from iron supplementation ANDREW/CKD - renal/bladder U/S: right renal cyst, enlarged prostate - urine CRE and electrolytes ordered - CPK wnl -hold losartan as pt came with ANDREW Visit type - Emergency Visit Emergency Visit: No - New Patient This patient is new to me today: No - Critical Care Critical Care patient: No ATTENDING PHYSICIAN STATEMENT I saw and evaluated the patient. I reviewed the resident's note and discussed the case with the resident. I agree with the resident's findings and plan as documented. SUBJECTIVE: OBJECTIVE: ASSESSMENT AND PLAN:
[2019-04-02] MEDS: MIRTAZAPINE 15 MG TABLET (FP) PO SCH (22:30)
[2019-04-02] MEDS: ATORVASTATIN CA 80 MG TABLET (FP) PO SCH (22:31)
[2019-04-03] MEDS: HEPARIN NA (PORCINE) 5,000 UNITS/ML 1ML VIAL SQ SCH ×2 (05:29→14:04)
[2019-04-03] MEDS: SODIUM CHLORIDE 1,000 ML IV SCH ×2 (06:53→15:00)
[2019-04-03 07:23] LABS: HEMATOCRIT 26.8 % (35.4-49); HEMOGLOBIN 8.9 GM/dL (11.7-16.9); MCH 27.8 pg (25.7-33.7); MCHC 33.4 g/dl (32.0-35.9); MEAN CELL VOLUME 83.3 fl (80-96); MEAN PLT VOLUME 9.3 fl (7.5-11.1); PLATELET COUNT 163 K/MM3 (134-434); RBC 3.22 M/mm3 (4.00-5.60); RDW 16.8 % (11.9-15.9); WHITE BLOOD COUNT 5.5 K/mm3 (4.0-10.0)
[2019-04-03 07:39] LABS: BLOOD UREA NITROGEN 14.9 mg/dL (7-18); CREATININE 0.9 mg/dL (0.55-1.3); POTASSIUM 3.7 mmol/L (3.5-5.1)
--- NOTE | 2019-04-03 08:38 | PN ---
Progress Note (short form) - Note Progress Note: Neurology CHIEF COMPLAINT: altered mental status HISTORY OF PRESENT ILLNESS: 68 year old Yakut speaking male with a past medical history of hemorrhagic stroke (x4 with L sided residual weakness), hypertension, hyperlipidemia, gout who presented to the ED with family with altered mental status. The patient was somnolent and was unable to answer questions on admission. Of note, he had slightly elevated white count of 12.[address] completed and demonstrated R sided parietal chronic infarct, chronic right thalamocapsular infarct, chronic left thalamic infarct, moderate to marked periventricular subcortical gliosis within the frontal lobes, no obstructive hydrocephalus, no acute bleeds CXR with no acute pathology. spinal tap was also completed and demonstrated elevated glucose of 86 and slightly elevated protein of 51 elevated protein of 51. Brain MRI completed - no evidence of acute or subacute infarct; enlarged lateral and third ventricles. Also prioor R MCA infarct along with white matter changes likely due to HTN, could not rule out angiopathy. Renal/Bladder US shows right renal cysts and enlarged prostate. Patient more awake, alert, conversive, interactive with examiner. Knows he's in the hospital but could not tell me exact date. Chest CT with infiltrates, being treated empirically with antibiotics. Mental status remains stable. Active Medications Atorvastatin Calcium (Lipitor -) 80 mg PO HS [facility] Last Admin: 04/02/19 22:31 Dose: 80 mg Carvedilol (Coreg -) 12.5 mg PO BID [facility] Last Admin: 04/02/19 22:30 Dose: 12.5 mg Docusate Sodium (Colace -) 100 mg PO BID [facility] Last Admin: 04/02/19 22:30 Dose: Not Given Donepezil HCl (Aricept -) 5 mg PO DAILY [facility] Last Admin: 04/02/19 11:21 Dose: 5 mg Heparin Sodium (Porcine) (Heparin -) 5,000 unit SQ TID [facility] Last Admin: 04/03/19 05:29 Dose: 5,000 unit Hydralazine HCl (Apresoline -) 25 mg PO DAILY [facility] Last Admin: 04/02/19 11:20 Dose: 25 mg Ceftriaxone Sodium 2 gm/ (Dextrose) 100 mls @ 200 mls/hr IVPB DAILY [facility]; Protocol Last Admin: 04/02/19 12:33 Dose: 200 mls/hr Sodium Chloride (Normal Saline -) 1,000 mls @ 75 mls/hr IV ASDIR [facility] Last Admin: 04/03/19 06:53 Dose: 75 mls/hr Metronidazole (Flagyl 500mg Premixed Ivpb -) 500 mg in 100 mls @ 100 mls/hr IVPB Q8H-IV [facility] Last Admin: 04/03/19 01:01 Dose: 100 mls/hr Mirtazapine (Remeron -) 7.5 mg PO HS [facility] Last Admin: 04/02/19 22:30 Dose: 7.5 mg PHYSICAL EXAMINATION Vital Signs Period Temp Pulse Resp BP Sys/Flores Pulse Ox Last 24 Hr 97.4 F-98.9 F 65-74 18-20 156-187/66-95 97-97 GENERAL: awake, alert, interactive. HEAD: Normal with no signs of trauma. EYES: Pupils 2mm and sluggish to light, sclera anicteric. EARS, NOSE, THROAT: Oropharynx clear without exudates. Dry mucous membranes. NECK: Supple without lymphadenopathy, JVD. LUNGS: Breath sounds equal, poorly auscultated due to patient non-compliance otherwise clear to auscultation bilaterally. No wheezes, and no crackles. HEART: Regular rate and rhythm, normal S1 and S2 without murmur, rub. ABDOMEN: Soft, nontender, not distended, normoactive bowel sounds, no guarding, no rebound, no masses. MUSCULOSKELETAL: No noted bone deformities. UPPER EXTREMITIES: 2+ pulses, warm, well-perfused. No cyanosis. No clubbing. No peripheral edema. LOWER EXTREMITIES: 1+ pulses, warm, well-perfused. No calf tenderness. No peripheral edema. NEUROLOGICAL: CN intact, moves extremities grossly, still not participating in full confrontation exam, sensory grossly intact SKIN: Warm, dry, normal turgor, noted small excoriation on left wells. CBCD WBC 5.5 K/mm3 (4.0-10.0) 04/03/19 06:15 RBC 3.22 M/mm3 (4.00-5.60) L 04/03/19 06:15 Hgb 8.9 GM/dL (11.7-16.9) L 04/03/19 06:15 Hct 26.8 % (35.4-49) L 04/03/19 06:15 MCV 83.3 fl (80-96) 04/03/19 06:15 MCHC 33.4 g/dl (32.0-35.9) 04/03/19 06:15 RDW 16.8 % (11.9-15.9) H 04/03/19 06:15 Plt Count 163 K/MM3 (134-434) 04/03/19 06:15 MPV 9.3 fl (7.5-11.1) 04/03/19 06:15 CMP Sodium 141 mmol/L (136-145) 04/03/19 06:15 Potassium 3.7 mmol/L (3.5-5.1) 04/03/19 06:15 Chloride 108 mmol/L (98-107) H 04/03/19 06:15 Carbon Dioxide 28 mmol/L (21-32) 04/03/19 06:15 Anion Gap 5 MMOL/L (8-16) L 04/03/19 06:15 BUN 14.9 mg/dL (7-18) 04/03/19 06:15 Creatinine 0.9 mg/dL (0.55-1.3) 04/03/19 06:15 Calcium 8.0 mg/dL (8.5-10.1) L 04/03/19 06:15 Total Bilirubin 0.6 mg/dL (0.2-1) 04/01/19 07:10 AST 21 U/L (15-37) 04/01/19 07:10 ALT 13 U/L (13-61) 04/01/19 07:10 Alkaline Phosphatase 72 U/L (45-117) 04/01/19 07:10 Total Protein 6.2 g/dl (6.4-8.2) L 04/01/19 07:10 Albumin 2.8 g/dl (3.4-5.0) L 04/01/19 07:10 EKG--> NSR, LVH, no ST segment changes, Qtc 467 ASSESSMENT/PLAN: 68 year old Yakut speaking male with a past medical history of hemorrhagic stroke (x4 with L sided residual weakness), hypertension, hyperlipidemia, gout who presented to the ED with family with altered mental status. The patient was somnolent and was unable to answer questions on admission. Of note, he had slightly elevated white count of 12.[address] completed and demonstrated R sided parietal chronic infarct, chronic right thalamocapsular infarct, chronic left thalamic infarct, moderate to marked periventricular subcortical gliosis within the frontal lobes, no obstructive hydrocephalus, no acute bleeds CXR with no acute pathology. spinal tap was also completed and demonstrated elevated glucose of 86 and slightly elevated protein of 51 elevated protein of 51. Brain MRI completed - no evidence of acute or subacute infarct; enlarged lateral and third ventricles. Also prioor R MCA infarct along with white matter changes likely due to HTN, could not rule out angiopathy. Renal/Bladder US shows right renal cysts and enlarged prostate. Patient more awake, alert, conversive, interactive with examiner. Knows he's in the hospital but could not tell me exact date. Chest CT with infiltrates, being treated empirically with antibiotics. Mental status remains stable. ID follow up/mgmt. Maintain adequate hydration and PO intake.
[2019-04-03] MEDS ORDERED: DEXTROSE 5%-WATER 100 ML IVPB ONE (09:58)
[2019-04-03] MEDS: CARVEDILOL 12.5 MG TABLET (FP) PO SCH (10:00)
[2019-04-03] MEDS: DONEPEZIL HCL 5 MG TABLET (FP) PO SCH (10:00)
[2019-04-03] MEDS: hydrALAZINE HCL 25 MG TABLET (FP) PO SCH (10:00)
[2019-04-03] MEDS: DOCUSATE SODIUM 100 MG CAPSULE (FP) PO SCH (10:01)
--- NOTE | 2019-04-03 10:43 | PN ---
Teaching Attending Note Name of Resident: Jamey Frazier ATTENDING PHYSICIAN STATEMENT I saw and evaluated the patient. I reviewed the resident's note and discussed the case with the resident. I agree with the resident's findings and plan as documented. Elevated BP noted this AM but prior to meds; rechecking post meds manual. Asymptomatic. Resident spoke with family at length yesterday. They described his current presentation as being at the patient's baseline. He has no new issues with new neurologic deficits, etc. If he remains stable he can be discharged home this AM. Family provides home care for him and has for some time. No concerns relayed to myself or resident team regarding the ongoing home managemtn of this patinet. ASSESSMENT AND PLAN:
[2019-04-03 11:40] LABS: ERYTHROCYTE SEDIMENTATION RATE 64 mm/hr (0-20)
[2019-04-03] MEDS: CEFTRIAXONE 2 GM in DEXTROSE 5%-WATER 100 ML IVPB SCH (11:46)
--- NOTE | 2019-04-03 15:49 | PN ---
Progress Note, [employer]STER - Note Progress Note: Selected Entries 04/02/19 04/02/19 04/02/19 02:00 07:29 15:00 Breakfast NPO Lunch NPO Supper Temperature 97.5 F L 98.0 F 98.4 F 04/02/19 04/02/19 04/02/19 16:09 18:00 18:20 Breakfast NPO Lunch NPO Supper 75% Temperature 97.4 F L 98.9 F 04/02/19 04/03/19 04/03/19 22:00 02:00 07:29 Breakfast Lunch Supper Temperature 98.6 F 98.4 F 98.8 F 04/03/19 04/03/19 04/03/19 11:44 14:17 15:21 Breakfast 100% Lunch 75% Supper Temperature 98.2 F Laboratory Tests 04/03/19 06:15 WBC 5.5 Pt on puree/nectar thick liquids. MBS (-) aspiration. Rec-Soft, reg/thin liquid, OOB for meals if possible. Assist with self feeding, as indicated.
[2019-04-03 19:21] VITALS: BP 162/82; PULSE 64; TEMP 98
[2019-04-04 10:06] LABS: LYME PCR CSF Negative (Negative)
--- NOTE | 2019-04-04 13:58 | DS ---
Physical Exam: SUBJECTIVE: Patient seen and examined at bedside. 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 The patient's Altered Mental Status was thought to be secondary to sepsis of unknown origin. He improved, and family at bedside stated he was at baseline. He was initially febrile and septic with no clear source; UA, CXR, and LP were negative. CT chest later revealed infiltrates which raised suspicion for aspiration PNA. He was covered empirically for meningitis with IV ABx. Urine and blood cultures were consistently negative. He was seen by ID, Neurology, and Speech Pathology. His hypertension was not an issue in pt, likely 2/2 sepsis, and his BP meds were held while in hospital. His Hyperlipidemia was managed with Lipitor. His Normocytic Anemia was thought to be due to Fe deficiency, and he was given supplementation. For his ANDREW/CKD he had a renal/bladder U/S, which showed a right renal cyst and enlarged prostate. His losartan was held. Minutes to complete discharge: 30 Discharge Summary Reason For Visit: SYSTEMIC INFLAMMATORY RESPONSE SYNDROME(SIRS) Condition: Stable - Instructions Diet, Activity, Other Instructions: You were in the hospital because of sepsis with altered mental status. You need to follow up with the following doctors: Your primary care doctor in 3-[address] Albrecht, neurology within 1-[address] Camacho, orthopedic surgery 1-2 weeks You should see your assistant professor of geography for your gout. If you do not have a assistant professor of geography, you are being given the contact information for a assistant professor of geography you can see as an out patient. Continue taking your home medications as before. Referrals: Elmo Guallpa MD [Staff Physician] - Dotty Gonsalez MD [Staff Physician] - Graham Albrecht MD [Staff Physician] - Aaron aCmacho DO [Staff Physician] - Disposition: HOME - Home Medications Comprehensive Discharge Medication List: Ambulatory Orders Atorvastatin Ca [Lipitor] 80 mg PO HS 03/31/19 Docusate Sodium [Colace -] 100 mg PO BID 03/31/19 Donepezil HCl [Aricept -] 5 mg PO DAILY 03/31/19 Losartan Potassium 100 mg PO DAILY 03/31/19 Mirtazapine 7.5 mg PO HS 03/31/19 Carvedilol [Coreg -] 12.5 mg PO BID #30 tablet 04/03/19 Hydralazine HCl 25 mg PO DAILY #30 tablet 04/03/19 This patient is new to me today: No Emergency Visit: No Critical Care patient: No - Discharge Referral Referred to [facility] Med P.C.: No ATTENDING PHYSICIAN STATEMENT I saw and evaluated the patient. I reviewed the resident's note and discussed the case with the resident. I agree with the resident's findings and plan as documented. SUBJECTIVE: OBJECTIVE: ASSESSMENT AND PLAN:
== END 2019-04-03 19:10 | disposition home or self-care (01) | DRG 871 ==
LOC: JER 17:03 → JERBED 22:08 → J5S 04-01 02:49
PROVIDERS: ADMIT Internal Medicine; ATTEND Internal Medicine
PROC: 009U3ZZ Drainage of Spinal Canal, Percutaneous Approach (ICD-10-PCS; principal; 2019-04-01)
PROC: B01BZZZ Fluoroscopy of Spinal Cord (ICD-10-PCS; 2019-04-01)
DX: A41.89 Other specified sepsis (principal); G93.41 Metabolic encephalopathy; J18.9 Pneumonia, unspecified organism; I69.354 Hemiplegia and hemiparesis following cerebral infarction affecting left non-dominant side; N17.9 Acute kidney failure, unspecified; E46 Unspecified protein-calorie malnutrition; E78.5 Hyperlipidemia, unspecified; R50.9 Fever, unspecified; D64.9 Anemia, unspecified; R80.9 Proteinuria, unspecified; M10.9 Gout, unspecified; N28.1 Cyst of kidney, acquired; N40.0 Benign prostatic hyperplasia without lower urinary tract symptoms; I12.9 Hypertensive chronic kidney disease with stage 1 through stage 4 chronic kidney disease, or unspecified chronic kidney disease; N18.9 Chronic kidney disease, unspecified
CPT/HCPCS: 36415; 70450-TC; 70551-TC; 71045-TC-FY; 71250-TC; 73130-TC-RT-FY; 74176-TC; 74230-TC-FY; 76775-TC; 76856-TC; 80048; 80053; 80307; 81003; 82272; 82436; 82550; 82553; 82565; 82607; 82728; 82746; 82803; 82945; 83540; 83550; 83605; 83735; 84133; 84157; 84300; 84439; 84443; 84484; 85025; 85027; 85610; 85651; 85730; 86038; 86140; 86431; 86663; 86664; 86665; 87040; 87070; 87086; 87205; 87476; 87529; 87899; 90670; 92611-GN; 93005; 93010; 99285-25; J0131; J1644; J7030

== ENCOUNTER 2021-05-03 19:02 | Inpatient (IN) | payer MEDICARE, OTHER ==
[2021-05-03] MEDS ORDERED: ACETAMINOPHEN 1000 MG/100 ML VIAL IVPB ONE (19:18)
[2021-05-03] MEDS ORDERED: VANCOMYCIN 1 GM in D5W (PRE-DOCKED) 1,000 MG/250 ML IVPB ONE (19:38)
[2021-05-03] MEDS ORDERED: PIPERACILLIN/TAZOB 4.5 GM 4.5 GM in DEXTROSE 5%-WATER 100 ML IVPB ONE (19:43)
[2021-05-03] MEDS ORDERED: ACETAMINOPHEN INJECTION 100 ML IVPB ONE (19:50)
[2021-05-03] MEDS ORDERED: PIPERACILLIN/TAZOB 4.5 GM 4.5 GM/100 ML BAG IVPB ONE (19:51)
[2021-05-03] MEDS ORDERED: VANCOMYCIN 1 GRAM (PRE-DOCKED) 1,000 MG/250 ML BAG IVPB ONE (19:51)
[2021-05-03 20:20] LABS: BASO % 0.4 % (0-2.0); EOS % 0.6 % (0-4.5); HEMATOCRIT 34.9 % (35.4-49); HEMOGLOBIN 10.9 GM/dL (11.7-16.9); LYMPH % 9.5 % (8-40); MCHC 31.2 g/dl (32.0-35.9); MEAN CELL VOLUME 73.6 fl (80-96); MEAN PLT VOLUME 8.5 fl (7.5-11.1); NEUT % 84.5 % (42.8-82.8); PLATELET COUNT 264 10^3/uL (134-434); RBC 4.74 M/mm3 (4.00-5.60); RDW 21.2 % (11.9-15.9); WHITE BLOOD COUNT 9.2 K/mm3 (4.0-10.0)
[2021-05-03 20:28] LABS: INR 1.37 (0.83-1.09); PROTHROMBIN TIME (PATIENT) 15.4 SEC (9.7-13.0)
[2021-05-03 20:32] LABS: ACTIVATED PTT 29.1 SECONDS (25.2-36.5)
[2021-05-03 20:38] LABS: CHLORIDE 122 mmol/L (98-107); SODIUM 155 mmol/L (136-145)
[2021-05-03 20:39] LABS: ANION GAP 8 MMOL/L (8-16); CALCIUM 8.5 mg/dL (8.5-10.1); CO2 25 mmol/L (21-32)
[2021-05-03 20:40] LABS: ALBUMIN 2.1 g/dl (3.4-5.0); BLOOD UREA NITROGEN 33.1 mg/dL (7-18); GLUCOSE,RANDOM 156 mg/dL (74-106)
[2021-05-03 20:42] LABS: SGPT/ALT 10 U/L (13-61)
[2021-05-03 20:43] LABS: CREATININE 1.3 mg/dL (0.55-1.3); SGOT/AST 14 U/L (15-37)
[2021-05-03 20:44] LABS: BILIRUBIN,TOTAL 0.3 mg/dL (0.2-1); TOT PROT 7.5 g/dl (6.4-8.2)
[2021-05-03 20:46] LABS: ALK PHOS 75 U/L (45-117)
[2021-05-03] MEDS ORDERED: LACTATED RINGERS SOLUTION 1000 ML INFUS.BAG IV ONE (20:47)
[2021-05-03 20:52] LABS: LACTIC ACID 3.2 mmol/L (0.4-2.0)
[2021-05-03 21:35] LABS: URINE APPEARANCE CLEAR; URINE BILIRUBIN NEGATIVE (NEGATIVE); URINE COLOR YELLOW; URINE GLUCOSE (UA) NEGATIVE (NEGATIVE); URINE KETONE NEGATIVE (NEGATIVE); URINE LEUK ESTERASE NEGATIVE (NEGATIVE); URINE NITRITE NEGATIVE (NEGATIVE); URINE PROTEIN TRACE (NEGATIVE); URINE UROBILINOGEN 0.2 mg/dL (0.2-1.0)
[2021-05-03] MEDS ORDERED: SODIUM CHLORIDE 0.45% 1,000 ML IV SCH ×2 (22:15→23:05)
[2021-05-03 22:52] LABS: ANISOCYTOSIS 2+; MACROCYTOSIS 0
[2021-05-03 23:50] LABS: N-TERMINAL BNP 665.2 pg/ml (5-125)
[2021-05-03 23:58] LABS: IRON SERUM 22 ug/dL (50-175)
[2021-05-04 00:02] LABS: TOTAL IRON BINDING CAPACITY 143 ug/dL (250-450)
[2021-05-04] MEDS ORDERED: ACETAMINOPHEN INJECTION 100 ML IVPB ONE (00:55)
[2021-05-04] MEDS ORDERED: ACETAMINOPHEN 1000 MG/100 ML VIAL IVPB PRN ×2 (01:00)
[2021-05-04] MEDS ORDERED: LACTATED RINGERS SOLUTION 1,000 ML/1,000 ML INFUS.BAG IV STA ×2 (01:26→01:47)
[2021-05-04 03:39] LABS: RETICULOCYTES 0.86 % (0.5-1.5)
[2021-05-04] MEDS ORDERED: PIPERACILLIN/TAZOB 3.375 GM 3.375 GM in DEXTROSE 5%-WATER - 50 ML IVPB SCH (04:00)
[2021-05-04] MEDS ORDERED: PIPERACILLIN/TAZOBACTAM 3.375 GM VIAL IVPB ONE ×2 (04:58→08:44)
[2021-05-04] MEDS ORDERED: DEXTROSE 5%-WATER - 50 ML IVPB ONE ×2 (04:58→08:44)
[2021-05-04] MEDS: PIPERACILLIN/TAZOB 3.375 GM 3.375 GM in DEXTROSE 5%-WATER - 50 ML IVPB SCH ×2 (05:00→10:24)
[2021-05-04 08:07] LABS: HEMATOCRIT 29.4 % (35.4-49); HEMOGLOBIN 9.2 GM/dL (11.7-16.9); MCH 23.1 pg (25.7-33.7); MCHC 31.2 g/dl (32.0-35.9); MEAN PLT VOLUME 8.8 fl (7.5-11.1); PLATELET COUNT 213 10^3/uL (134-434); RBC 3.97 M/mm3 (4.00-5.60); RDW 21.4 % (11.9-15.9); WHITE BLOOD COUNT 11.1 K/mm3 (4.0-10.0)
[2021-05-04 08:17] LABS: ALBUMIN 1.8 g/dl (3.4-5.0)
[2021-05-04 08:20] LABS: CALCIUM 7.9 mg/dL (8.5-10.1); CREATININE 1.2 mg/dL (0.55-1.3); MAGNESIUM 2.2 mg/dL (1.8-2.4)
[2021-05-04 08:21] LABS: BLOOD UREA NITROGEN 31.8 mg/dL (7-18)
[2021-05-04 08:23] LABS: TOT PROT 6.3 g/dl (6.4-8.2)
[2021-05-04 08:25] LABS: PHOSPHOROUS 3.4 mg/dL (2.5-4.9)
[2021-05-04 08:26] LABS: BILIRUBIN,TOTAL 0.5 mg/dL (0.2-1)
[2021-05-04] MEDS: CARVEDILOL 12.5 MG TABLET (FP) PO SCH ×2 (10:24→23:32)
[2021-05-04] MEDS: LOSARTAN POTASSIUM 50 MG TABLET PO SCH (10:24)
[2021-05-04] MEDS: hydrALAZINE HCL 25 MG TABLET (FP) PO SCH ×2 (10:25→23:32)
[2021-05-04] MEDS ORDERED: SODIUM CHLORIDE 100 ML IVPB ONE (17:25)
[2021-05-04] MEDS ORDERED: AMPICILLIN NA/SULBACTAM NA 3 GM VIAL ONE (17:25)
[2021-05-04] MEDS: AMPICILLIN NA/SULBACTAM NA 3 GM in SODIUM CHLORIDE 100 ML IVPB SCH (18:20)
[2021-05-04 21:07] LABS: BF WBC & OTHER NUCLEATED CELLS 263 /mm3; BODY FLUID MONOCYTE 2 %
[2021-05-04] MEDS: ATORVASTATIN CA 80 MG TABLET (FP) PO SCH (23:32)
[2021-05-05] MEDS ORDERED: SODIUM CHLORIDE 100 ML IVPB ONE ×3 (01:59→16:28)
[2021-05-05] MEDS ORDERED: AMPICILLIN NA/SULBACTAM NA 3 GM VIAL ONE ×3 (01:59→16:28)
[2021-05-05] MEDS: AMPICILLIN NA/SULBACTAM NA 3 GM in SODIUM CHLORIDE 100 ML IVPB SCH ×3 (02:16→18:30)
[2021-05-05] MEDS: DEXTROSE 5%-WATER - 1,000 ML IV SCH ×2 (09:46→18:35)
[2021-05-05] MEDS: hydrALAZINE HCL 25 MG TABLET (FP) PO SCH ×2 (09:47→21:54)
[2021-05-05] MEDS: LOSARTAN POTASSIUM 50 MG TABLET PO SCH (09:47)
[2021-05-05] MEDS: CARVEDILOL 12.5 MG TABLET (FP) PO SCH ×2 (09:47→21:30)
[2021-05-05 10:02] LABS: BASO % 0.4 % (0-2.0); EOS % 2.1 % (0-4.5); HEMATOCRIT 27.8 % (35.4-49); HEMOGLOBIN 8.6 GM/dL (11.7-16.9); LYMPH % 13.1 % (8-40); MCH 23.2 pg (25.7-33.7); MCHC 30.9 g/dl (32.0-35.9); MEAN CELL VOLUME 74.9 fl (80-96); MEAN PLT VOLUME 8.5 fl (7.5-11.1); NEUT % 79.4 % (42.8-82.8); PLATELET COUNT 183 10^3/uL (134-434); RBC 3.71 M/mm3 (4.00-5.60); RDW 20.9 % (11.9-15.9); WHITE BLOOD COUNT 5.8 K/mm3 (4.0-10.0)
[2021-05-05 10:26] LABS: ALBUMIN 1.6 g/dl (3.4-5.0); BLOOD UREA NITROGEN 23.9 mg/dL (7-18); CALCIUM 8.2 mg/dL (8.5-10.1)
[2021-05-05 10:28] LABS: MAGNESIUM 1.9 mg/dL (1.8-2.4)
[2021-05-05 10:30] LABS: CREATININE 0.9 mg/dL (0.55-1.3)
[2021-05-05 10:31] LABS: BILIRUBIN,TOTAL 0.4 mg/dL (0.2-1)
[2021-05-05] MEDS: KCL 10 MEQ IVPB 10 MEQ/100 ML INFUS.BAG IVPB SCH ×3 (15:31→17:40)
[2021-05-05] MEDS: ATORVASTATIN CA 80 MG TABLET (FP) PO SCH (21:30)
[2021-05-06] MEDS ORDERED: SODIUM CHLORIDE 100 ML IVPB ONE ×3 (00:03→16:52)
[2021-05-06] MEDS ORDERED: AMPICILLIN NA/SULBACTAM NA 3 GM VIAL ONE ×3 (00:03→16:52)
[2021-05-06] MEDS: AMPICILLIN NA/SULBACTAM NA 3 GM in SODIUM CHLORIDE 100 ML IVPB SCH ×3 (01:11→17:11)
[2021-05-06 07:23] LABS: BASO % 0.5 % (0-2.0); EOS % 2.6 % (0-4.5); HEMATOCRIT 25.8 % (35.4-49); HEMOGLOBIN 8.2 GM/dL (11.7-16.9); MCH 23.2 pg (25.7-33.7); MCHC 31.7 g/dl (32.0-35.9); MEAN CELL VOLUME 73.1 fl (80-96); MEAN PLT VOLUME 8.8 fl (7.5-11.1); NEUT % 74.9 % (42.8-82.8); PLATELET COUNT 183 10^3/uL (134-434); RBC 3.53 M/mm3 (4.00-5.60); RDW 20.7 % (11.9-15.9); WHITE BLOOD COUNT 4.8 K/mm3 (4.0-10.0)
[2021-05-06 07:40] LABS: CHLORIDE 112 mmol/L (98-107); SODIUM 144 mmol/L (136-145)
[2021-05-06 07:45] LABS: CALCIUM 7.8 mg/dL (8.5-10.1)
[2021-05-06 07:46] LABS: ANION GAP 5 MMOL/L (8-16); BLOOD UREA NITROGEN 14.6 mg/dL (7-18); CO2 27 mmol/L (21-32); GLUCOSE,RANDOM 97 mg/dL (74-106)
[2021-05-06 07:47] LABS: ALBUMIN 1.5 g/dl (3.4-5.0); MAGNESIUM 1.8 mg/dL (1.8-2.4)
[2021-05-06 07:48] LABS: SGPT/ALT < 6 U/L (13-61)
[2021-05-06 07:49] LABS: CREATININE 0.7 mg/dL (0.55-1.3); SGOT/AST 13 U/L (15-37)
[2021-05-06 07:50] LABS: BILIRUBIN,TOTAL 0.3 mg/dL (0.2-1); TOT PROT 5.6 g/dl (6.4-8.2)
[2021-05-06 07:51] LABS: ALK PHOS 56 U/L (45-117)
[2021-05-06] MEDS ORDERED: POTASSIUM CHLORIDE ORAL LIQUID 20 MEQ/15 ML PO ONE (09:08)
[2021-05-06] MEDS: CARVEDILOL 12.5 MG TABLET (FP) PO SCH ×2 (10:10→21:36)
[2021-05-06] MEDS: LOSARTAN POTASSIUM 50 MG TABLET PO SCH (10:10)
[2021-05-06] MEDS: DEXTROSE 5%-WATER - 1,000 ML IV SCH (10:10)
[2021-05-06] MEDS: hydrALAZINE HCL 25 MG TABLET (FP) PO SCH ×2 (10:11→21:36)
[2021-05-06 15:54] LABS: CALCIUM 8.1 mg/dL (8.5-10.1)
[2021-05-06 15:55] LABS: BLOOD UREA NITROGEN 12.6 mg/dL (7-18)
[2021-05-06 15:58] LABS: CREATININE 0.9 mg/dL (0.55-1.3)
[2021-05-06] MEDS: ATORVASTATIN CA 80 MG TABLET (FP) PO SCH (21:36)
[2021-05-07] MEDS ORDERED: AMPICILLIN NA/SULBACTAM NA 3 GM VIAL ONE ×3 (00:35→18:00)
[2021-05-07] MEDS ORDERED: SODIUM CHLORIDE 100 ML IVPB ONE ×3 (00:36→18:00)
[2021-05-07] MEDS: AMPICILLIN NA/SULBACTAM NA 3 GM in SODIUM CHLORIDE 100 ML IVPB SCH ×3 (01:21→18:00)
[2021-05-07 08:33] LABS: BASO % 0.4 % (0-2.0); EOS % 1.4 % (0-4.5); HEMATOCRIT 28.6 % (35.4-49); HEMOGLOBIN 9.1 GM/dL (11.7-16.9); LYMPH % 16.3 % (8-40); MCH 23.2 pg (25.7-33.7); MEAN CELL VOLUME 72.5 fl (80-96); MEAN PLT VOLUME 8.9 fl (7.5-11.1); MONO % 7.2 % (3.8-10.2); NEUT % 74.7 % (42.8-82.8); PLATELET COUNT 196 10^3/uL (134-434); RBC 3.94 M/mm3 (4.00-5.60); RDW 20.1 % (11.9-15.9); WHITE BLOOD COUNT 4.6 K/mm3 (4.0-10.0)
[2021-05-07 08:57] LABS: CALCIUM 7.9 mg/dL (8.5-10.1)
[2021-05-07 08:58] LABS: ALBUMIN 1.7 g/dl (3.4-5.0); MAGNESIUM 1.9 mg/dL (1.8-2.4)
[2021-05-07 09:01] LABS: BILIRUBIN,TOTAL 0.3 mg/dL (0.2-1); BLOOD UREA NITROGEN 9.4 mg/dL (7-18)
[2021-05-07] MEDS ORDERED: POTASSIUM CHLORIDE ORAL LIQUID 20 MEQ/15 ML PO ONE (09:01)
[2021-05-07 09:04] LABS: CREATININE 0.7 mg/dL (0.55-1.3)
[2021-05-07] MEDS: LOSARTAN POTASSIUM 50 MG TABLET PO SCH (09:59)
[2021-05-07] MEDS: CARVEDILOL 12.5 MG TABLET (FP) PO SCH ×2 (09:59→21:56)
[2021-05-07] MEDS: hydrALAZINE HCL 25 MG TABLET (FP) PO SCH ×2 (09:59→21:56)
[2021-05-07] MEDS: DEXTROSE 5%-WATER - 1,000 ML IV SCH (10:04)
[2021-05-07] MEDS ORDERED: ACETAMINOPHEN 1000 MG/100 ML VIAL IVPB PRN (12:09)
[2021-05-07 12:44] VITALS: BMI 20.7
[2021-05-07] MEDS: AMINO ACIDS/PROTEIN HYDROLYS 30 ML LIQUID.PKT PO SCH (18:01)
[2021-05-07] MEDS: MIRTAZAPINE 15 MG TABLET (FP) PO SCH (21:56)
[2021-05-07] MEDS: ATORVASTATIN CA 80 MG TABLET (FP) PO SCH (21:56)
[2021-05-08] MEDS ORDERED: AMPICILLIN NA/SULBACTAM NA 3 GM VIAL ONE ×3 (03:07→17:09)
[2021-05-08] MEDS ORDERED: SODIUM CHLORIDE 100 ML IVPB ONE ×3 (03:07→17:09)
[2021-05-08] MEDS: AMPICILLIN NA/SULBACTAM NA 3 GM in SODIUM CHLORIDE 100 ML IVPB SCH ×3 (03:15→17:21)
[2021-05-08 08:02] LABS: BASO % 0.5 % (0-2.0); EOS % 2.7 % (0-4.5); HEMATOCRIT 31.1 % (35.4-49); HEMOGLOBIN 9.8 GM/dL (11.7-16.9); LYMPH % 21.1 % (8-40); MCH 23.3 pg (25.7-33.7); MCHC 31.6 g/dl (32.0-35.9); MEAN CELL VOLUME 73.6 fl (80-96); MEAN PLT VOLUME 8.8 fl (7.5-11.1); MONO % 8.1 % (3.8-10.2); NEUT % 67.6 % (42.8-82.8); PLATELET COUNT 181 10^3/uL (134-434); RBC 4.22 M/mm3 (4.00-5.60); RDW 20.2 % (11.9-15.9)
[2021-05-08 08:18] LABS: ALBUMIN 1.8 g/dl (3.4-5.0); BLOOD UREA NITROGEN 9.3 mg/dL (7-18); CALCIUM 7.7 mg/dL (8.5-10.1)
[2021-05-08 08:19] LABS: MAGNESIUM 2.2 mg/dL (1.8-2.4)
[2021-05-08 08:21] LABS: CREATININE 0.8 mg/dL (0.55-1.3)
[2021-05-08 08:23] LABS: BILIRUBIN,TOTAL 0.3 mg/dL (0.2-1); TOT PROT 6.2 g/dl (6.4-8.2)
[2021-05-08] MEDS: AMINO ACIDS/PROTEIN HYDROLYS 30 ML LIQUID.PKT PO SCH ×2 (09:08→17:21)
[2021-05-08] MEDS: LOSARTAN POTASSIUM 50 MG TABLET PO SCH (10:08)
[2021-05-08] MEDS: CARVEDILOL 12.5 MG TABLET (FP) PO SCH ×2 (10:08→22:03)
[2021-05-08] MEDS: hydrALAZINE HCL 25 MG TABLET (FP) PO SCH ×2 (10:08→22:03)
[2021-05-08] MEDS: MIRTAZAPINE 15 MG TABLET (FP) PO SCH (22:02)
[2021-05-08] MEDS: ATORVASTATIN CA 80 MG TABLET (FP) PO SCH (22:03)
[2021-05-09] MEDS ORDERED: AMPICILLIN NA/SULBACTAM NA 3 GM VIAL ONE ×4 (00:47→17:03)
[2021-05-09] MEDS ORDERED: SODIUM CHLORIDE 100 ML IVPB ONE ×3 (00:48→17:03)
[2021-05-09] MEDS: AMPICILLIN NA/SULBACTAM NA 3 GM in SODIUM CHLORIDE 100 ML IVPB SCH ×3 (01:15→17:36)
[2021-05-09 08:35] LABS: BASO % 0.3 % (0-2.0); EOS % 2.2 % (0-4.5); HEMATOCRIT 28.8 % (35.4-49); HEMOGLOBIN 9.1 GM/dL (11.7-16.9); MCH 23.2 pg (25.7-33.7); MCHC 31.4 g/dl (32.0-35.9); MEAN CELL VOLUME 73.8 fl (80-96); MONO % 9.2 % (3.8-10.2); NEUT % 70.3 % (42.8-82.8); PLATELET COUNT 183 10^3/uL (134-434); RBC 3.91 M/mm3 (4.00-5.60); RDW 20.4 % (11.9-15.9); WHITE BLOOD COUNT 4.3 K/mm3 (4.0-10.0)
[2021-05-09 08:52] LABS: ALBUMIN 1.6 g/dl (3.4-5.0); BLOOD UREA NITROGEN 13.7 mg/dL (7-18); CALCIUM 8.1 mg/dL (8.5-10.1)
[2021-05-09 08:55] LABS: CREATININE 0.7 mg/dL (0.55-1.3)
[2021-05-09 08:57] LABS: BILIRUBIN,TOTAL 0.5 mg/dL (0.2-1); TOT PROT 5.9 g/dl (6.4-8.2)
[2021-05-09] MEDS: CARVEDILOL 12.5 MG TABLET (FP) PO SCH ×2 (10:50→22:02)
[2021-05-09] MEDS: hydrALAZINE HCL 25 MG TABLET (FP) PO SCH ×2 (10:50→22:02)
[2021-05-09] MEDS: LOSARTAN POTASSIUM 50 MG TABLET PO SCH (10:50)
[2021-05-09] MEDS: AMINO ACIDS/PROTEIN HYDROLYS 30 ML LIQUID.PKT PO SCH ×2 (10:51→17:36)
[2021-05-09] MEDS: MIRTAZAPINE 15 MG TABLET (FP) PO SCH (22:02)
[2021-05-09] MEDS: ATORVASTATIN CA 80 MG TABLET (FP) PO SCH (22:02)
[2021-05-10] MEDS ORDERED: SODIUM CHLORIDE 100 ML IVPB ONE ×4 (02:18→17:58)
[2021-05-10] MEDS ORDERED: AMPICILLIN NA/SULBACTAM NA 3 GM VIAL ONE ×4 (02:18→17:57)
[2021-05-10] MEDS: AMPICILLIN NA/SULBACTAM NA 3 GM in SODIUM CHLORIDE 100 ML IVPB SCH ×3 (02:25→18:15)
[2021-05-10 07:08] LABS: BASO % 0.4 % (0-2.0); EOS % 2.4 % (0-4.5); HEMATOCRIT 29.5 % (35.4-49); HEMOGLOBIN 9.3 GM/dL (11.7-16.9); LYMPH % 18.1 % (8-40); MCHC 31.5 g/dl (32.0-35.9); MEAN CELL VOLUME 73.1 fl (80-96); MEAN PLT VOLUME 8.6 fl (7.5-11.1); MONO % 9.4 % (3.8-10.2); NEUT % 69.7 % (42.8-82.8); PLATELET COUNT 188 10^3/uL (134-434); RBC 4.03 M/mm3 (4.00-5.60); RDW 20.1 % (11.9-15.9); WHITE BLOOD COUNT 4.7 K/mm3 (4.0-10.0)
[2021-05-10 07:30] LABS: ALBUMIN 1.7 g/dl (3.4-5.0); BLOOD UREA NITROGEN 15.6 mg/dL (7-18); CALCIUM 8.2 mg/dL (8.5-10.1); MAGNESIUM 1.9 mg/dL (1.8-2.4)
[2021-05-10 07:34] LABS: CREATININE 0.8 mg/dL (0.55-1.3)
[2021-05-10 07:35] LABS: BILIRUBIN,TOTAL 0.3 mg/dL (0.2-1); TOT PROT 6.1 g/dl (6.4-8.2)
[2021-05-10] MEDS: hydrALAZINE HCL 25 MG TABLET (FP) PO SCH ×2 (11:21→22:08)
[2021-05-10] MEDS: AMINO ACIDS/PROTEIN HYDROLYS 30 ML LIQUID.PKT PO SCH ×2 (11:22→18:15)
[2021-05-10] MEDS: CARVEDILOL 12.5 MG TABLET (FP) PO SCH ×2 (11:23→22:08)
[2021-05-10] MEDS: LOSARTAN POTASSIUM 50 MG TABLET PO SCH (11:25)
[2021-05-10] MEDS: ATORVASTATIN CA 80 MG TABLET (FP) PO SCH (22:07)
[2021-05-10] MEDS: MIRTAZAPINE 15 MG TABLET (FP) PO SCH (22:08)
[2021-05-11] MEDS ORDERED: SODIUM CHLORIDE 100 ML IVPB ONE ×3 (01:53→16:38)
[2021-05-11] MEDS ORDERED: AMPICILLIN NA/SULBACTAM NA 3 GM VIAL ONE ×3 (01:53→16:38)
[2021-05-11] MEDS: AMPICILLIN NA/SULBACTAM NA 3 GM in SODIUM CHLORIDE 100 ML IVPB SCH ×3 (02:10→17:54)
[2021-05-11 08:49] LABS: BASO % 0.5 % (0-2.0); EOS % 2.2 % (0-4.5); HEMATOCRIT 26.6 % (35.4-49); HEMOGLOBIN 8.6 GM/dL (11.7-16.9); LYMPH % 15.9 % (8-40); MCH 23.4 pg (25.7-33.7); MCHC 32.3 g/dl (32.0-35.9); MEAN CELL VOLUME 72.4 fl (80-96); MEAN PLT VOLUME 8.5 fl (7.5-11.1); MONO % 10.2 % (3.8-10.2); NEUT % 71.2 % (42.8-82.8); PLATELET COUNT 179 10^3/uL (134-434); RBC 3.68 M/mm3 (4.00-5.60); WHITE BLOOD COUNT 4.3 K/mm3 (4.0-10.0)
[2021-05-11 09:08] LABS: CALCIUM 7.9 mg/dL (8.5-10.1)
[2021-05-11 09:09] LABS: ALBUMIN 1.8 g/dl (3.4-5.0); BLOOD UREA NITROGEN 16.7 mg/dL (7-18)
[2021-05-11 09:10] LABS: MAGNESIUM 2.1 mg/dL (1.8-2.4)
[2021-05-11 09:12] LABS: CREATININE 0.8 mg/dL (0.55-1.3)
[2021-05-11 09:14] LABS: BILIRUBIN,TOTAL 0.5 mg/dL (0.2-1); TOT PROT 5.9 g/dl (6.4-8.2)
[2021-05-11] MEDS: CARVEDILOL 12.5 MG TABLET (FP) PO SCH ×2 (10:11→21:40)
[2021-05-11] MEDS: hydrALAZINE HCL 25 MG TABLET (FP) PO SCH ×2 (10:11→21:39)
[2021-05-11] MEDS: LOSARTAN POTASSIUM 50 MG TABLET PO SCH (10:12)
[2021-05-11] MEDS: AMINO ACIDS/PROTEIN HYDROLYS 30 ML LIQUID.PKT PO SCH ×2 (10:13→16:43)
[2021-05-11] MEDS ORDERED: ACETAMINOPHEN 325 MG TABLET (FP) PO PRN (15:27)
[2021-05-11] MEDS: MIRTAZAPINE 15 MG TABLET (FP) PO SCH (21:40)
[2021-05-11] MEDS: ATORVASTATIN CA 80 MG TABLET (FP) PO SCH (21:40)
[2021-05-12] MEDS ORDERED: AMPICILLIN NA/SULBACTAM NA 3 GM VIAL ONE ×3 (02:02→16:52)
[2021-05-12] MEDS ORDERED: SODIUM CHLORIDE 100 ML IVPB ONE ×2 (02:02→09:27)
[2021-05-12] MEDS: AMPICILLIN NA/SULBACTAM NA 3 GM in SODIUM CHLORIDE 100 ML IVPB SCH ×3 (02:12→17:24)
[2021-05-12] MEDS: AMINO ACIDS/PROTEIN HYDROLYS 30 ML LIQUID.PKT PO SCH ×2 (10:08→17:27)
[2021-05-12] MEDS: CARVEDILOL 12.5 MG TABLET (FP) PO SCH ×2 (10:08→21:31)
[2021-05-12] MEDS: LOSARTAN POTASSIUM 50 MG TABLET PO SCH (10:09)
[2021-05-12] MEDS: DOCUSATE SODIUM 100 MG CAPSULE (FP) PO SCH ×3 (10:09→21:31)
[2021-05-12] MEDS: MULTIVITAMINS (DAILY MVI) TABLET (FP) PO SCH (10:09)
[2021-05-12] MEDS: hydrALAZINE HCL 25 MG TABLET (FP) PO SCH ×2 (10:09→21:31)
[2021-05-12 11:44] LABS: BASO % 0.5 % (0-2.0); EOS % 2.4 % (0-4.5); HEMATOCRIT 26.4 % (35.4-49); HEMOGLOBIN 8.7 GM/dL (11.7-16.9); MCH 23.6 pg (25.7-33.7); MCHC 32.8 g/dl (32.0-35.9); MEAN CELL VOLUME 71.8 fl (80-96); MEAN PLT VOLUME 8.4 fl (7.5-11.1); MONO % 12.4 % (3.8-10.2); NEUT % 64.7 % (42.8-82.8); PLATELET COUNT 184 10^3/uL (134-434); RBC 3.67 M/mm3 (4.00-5.60); RDW 20.8 % (11.9-15.9); WHITE BLOOD COUNT 3.6 K/mm3 (4.0-10.0)
[2021-05-12 12:04] LABS: CALCIUM 7.3 mg/dL (8.5-10.1)
[2021-05-12 12:05] LABS: ALBUMIN 1.7 g/dl (3.4-5.0); BLOOD UREA NITROGEN 19.5 mg/dL (7-18)
[2021-05-12 12:08] LABS: CREATININE 0.9 mg/dL (0.55-1.3)
[2021-05-12 12:09] LABS: BILIRUBIN,TOTAL 0.3 mg/dL (0.2-1); TOT PROT 5.9 g/dl (6.4-8.2)
[2021-05-12 13:19] LABS: ANISOCYTOSIS 1+; MACROCYTOSIS 1+; OVALOCYTE 1+; PLATELET ESTIMATE NORMAL
[2021-05-12] MEDS ORDERED: POTASSIUM CHLORIDE ORAL LIQUID 20 MEQ/15 ML PO ONE (14:45)
[2021-05-12] MEDS: SENNOSIDES 8.6MG TABLET (FP) PO SCH (21:31)
[2021-05-12] MEDS: ATORVASTATIN CA 80 MG TABLET (FP) PO SCH (21:31)
[2021-05-12] MEDS: MIRTAZAPINE 15 MG TABLET (FP) PO SCH (21:31)
[2021-05-13] MEDS ORDERED: AMPICILLIN NA/SULBACTAM NA 3 GM VIAL ONE ×3 (00:32→18:10)
[2021-05-13] MEDS ORDERED: SODIUM CHLORIDE 100 ML IVPB ONE ×3 (00:32→18:10)
[2021-05-13] MEDS: AMPICILLIN NA/SULBACTAM NA 3 GM in SODIUM CHLORIDE 100 ML IVPB SCH ×3 (01:18→18:13)
[2021-05-13] MEDS: DOCUSATE SODIUM 100 MG CAPSULE (FP) PO SCH ×3 (05:56→21:11)
[2021-05-13 07:03] LABS: BASO % 0.6 % (0-2.0); EOS % 2.7 % (0-4.5); HEMATOCRIT 25.9 % (35.4-49); HEMOGLOBIN 8.4 GM/dL (11.7-16.9); LYMPH % 22.5 % (8-40); MCH 23.5 pg (25.7-33.7); MCHC 32.3 g/dl (32.0-35.9); MEAN CELL VOLUME 72.7 fl (80-96); MEAN PLT VOLUME 8.5 fl (7.5-11.1); MONO % 13.2 % (3.8-10.2); PLATELET COUNT 192 10^3/uL (134-434); RBC 3.56 M/mm3 (4.00-5.60); RDW 20.7 % (11.9-15.9); WHITE BLOOD COUNT 3.6 K/mm3 (4.0-10.0)
[2021-05-13 07:24] LABS: CALCIUM 7.4 mg/dL (8.5-10.1)
[2021-05-13 07:25] LABS: ALBUMIN 1.7 g/dl (3.4-5.0); BLOOD UREA NITROGEN 19.7 mg/dL (7-18); MAGNESIUM 1.9 mg/dL (1.8-2.4)
[2021-05-13 07:28] LABS: CREATININE 0.9 mg/dL (0.55-1.3)
[2021-05-13 07:29] LABS: BILIRUBIN,TOTAL 0.3 mg/dL (0.2-1); TOT PROT 5.9 g/dl (6.4-8.2)
[2021-05-13] MEDS: AMINO ACIDS/PROTEIN HYDROLYS 30 ML LIQUID.PKT PO SCH ×2 (08:29→18:13)
[2021-05-13] MEDS: CARVEDILOL 12.5 MG TABLET (FP) PO SCH ×2 (10:58→21:11)
[2021-05-13] MEDS: hydrALAZINE HCL 25 MG TABLET (FP) PO SCH ×2 (10:58→21:11)
[2021-05-13] MEDS: MULTIVITAMINS (DAILY MVI) TABLET (FP) PO SCH (10:58)
[2021-05-13] MEDS: LOSARTAN POTASSIUM 50 MG TABLET PO SCH (11:00)
[2021-05-13] MEDS: ATORVASTATIN CA 80 MG TABLET (FP) PO SCH (21:12)
[2021-05-13] MEDS: SENNOSIDES 8.6MG TABLET (FP) PO SCH (21:12)
[2021-05-13] MEDS: MIRTAZAPINE 15 MG TABLET (FP) PO SCH (21:12)
[2021-05-14] MEDS ORDERED: AMPICILLIN NA/SULBACTAM NA 3 GM VIAL ONE ×3 (00:38→17:53)
[2021-05-14] MEDS ORDERED: SODIUM CHLORIDE 100 ML IVPB ONE ×3 (00:38→17:53)
[2021-05-14] MEDS: AMPICILLIN NA/SULBACTAM NA 3 GM in SODIUM CHLORIDE 100 ML IVPB SCH ×3 (01:05→17:57)
[2021-05-14] MEDS: DOCUSATE SODIUM 100 MG CAPSULE (FP) PO SCH ×3 (05:25→21:49)
[2021-05-14] MEDS: AMINO ACIDS/PROTEIN HYDROLYS 30 ML LIQUID.PKT PO SCH ×2 (09:14→17:57)
[2021-05-14] MEDS: hydrALAZINE HCL 25 MG TABLET (FP) PO SCH ×2 (09:15→21:49)
[2021-05-14] MEDS: LOSARTAN POTASSIUM 50 MG TABLET PO SCH (09:16)
[2021-05-14] MEDS: CARVEDILOL 12.5 MG TABLET (FP) PO SCH ×2 (09:16→21:49)
[2021-05-14] MEDS: MULTIVITAMINS (DAILY MVI) TABLET (FP) PO SCH (09:16)
[2021-05-14 15:01] LABS: LYMPH % 17.7 % (8-40); MCHC 31.8 g/dl (32.0-35.9); MEAN CELL VOLUME 72.4 fl (80-96); MEAN PLT VOLUME 7.8 fl (7.5-11.1); MONO % 9.3 % (3.8-10.2); PLATELET COUNT 176 10^3/uL (134-434); RBC 3.45 M/mm3 (4.00-5.60); RDW 20.9 % (11.9-15.9); WHITE BLOOD COUNT 3.9 K/mm3 (4.0-10.0)
[2021-05-14 15:27] LABS: CALCIUM 7.6 mg/dL (8.5-10.1)
[2021-05-14 15:28] LABS: ALBUMIN 1.6 g/dl (3.4-5.0); MAGNESIUM 1.6 mg/dL (1.8-2.4)
[2021-05-14 15:33] LABS: BILIRUBIN,TOTAL 0.4 mg/dL (0.2-1); TOT PROT 5.6 g/dl (6.4-8.2)
[2021-05-14] MEDS: MIRTAZAPINE 15 MG TABLET (FP) PO SCH (21:49)
[2021-05-14] MEDS: SENNOSIDES 8.6MG TABLET (FP) PO SCH (21:49)
[2021-05-14] MEDS: ATORVASTATIN CA 80 MG TABLET (FP) PO SCH (21:49)
[2021-05-15] MEDS ORDERED: AMPICILLIN NA/SULBACTAM NA 3 GM VIAL ONE ×2 (01:34→08:53)
[2021-05-15] MEDS ORDERED: SODIUM CHLORIDE 100 ML IVPB ONE ×2 (01:35→08:53)
[2021-05-15] MEDS: AMPICILLIN NA/SULBACTAM NA 3 GM in SODIUM CHLORIDE 100 ML IVPB SCH ×2 (01:38→09:43)
[2021-05-15] MEDS: DOCUSATE SODIUM 100 MG CAPSULE (FP) PO SCH ×3 (05:11→21:18)
[2021-05-15] MEDS ORDERED: MAGNESIUM OXIDE 400 MG TABLET (FP) PO ONE (09:22)
[2021-05-15] MEDS: AMINO ACIDS/PROTEIN HYDROLYS 30 ML LIQUID.PKT PO SCH ×2 (09:42→18:29)
[2021-05-15] MEDS: hydrALAZINE HCL 25 MG TABLET (FP) PO SCH ×2 (09:42→21:18)
[2021-05-15] MEDS: CARVEDILOL 12.5 MG TABLET (FP) PO SCH ×2 (09:43→21:18)
[2021-05-15] MEDS: LOSARTAN POTASSIUM 50 MG TABLET PO SCH (09:43)
[2021-05-15] MEDS: MULTIVITAMINS (DAILY MVI) TABLET (FP) PO SCH (09:43)
[2021-05-15 15:52] LABS: BASO % 0.6 % (0-2.0); EOS % 2.7 % (0-4.5); HEMATOCRIT 25.5 % (35.4-49); LYMPH % 17.9 % (8-40); MCH 23.1 pg (25.7-33.7); MCHC 31.5 g/dl (32.0-35.9); MEAN CELL VOLUME 73.3 fl (80-96); MEAN PLT VOLUME 8.4 fl (7.5-11.1); MONO % 9.5 % (3.8-10.2); NEUT % 69.3 % (42.8-82.8); PLATELET COUNT 178 10^3/uL (134-434); RBC 3.47 M/mm3 (4.00-5.60); WHITE BLOOD COUNT 3.7 K/mm3 (4.0-10.0)
[2021-05-15 16:12] LABS: CALCIUM 7.8 mg/dL (8.5-10.1)
[2021-05-15 16:13] LABS: ALBUMIN 1.5 g/dl (3.4-5.0); BLOOD UREA NITROGEN 21.3 mg/dL (7-18)
[2021-05-15 16:16] LABS: CREATININE 0.8 mg/dL (0.55-1.3)
[2021-05-15 16:18] LABS: BILIRUBIN,TOTAL 0.3 mg/dL (0.2-1); TOT PROT 5.6 g/dl (6.4-8.2)
[2021-05-15] MEDS: AMOX TR/POT CLAV 875MG/125MG TABLETS (FP) PO SCH (18:29)
[2021-05-15] MEDS: MIRTAZAPINE 15 MG TABLET (FP) PO SCH (21:18)
[2021-05-15] MEDS: SENNOSIDES 8.6MG TABLET (FP) PO SCH (21:18)
[2021-05-15] MEDS: ATORVASTATIN CA 80 MG TABLET (FP) PO SCH (21:18)
[2021-05-16] MEDS: DOCUSATE SODIUM 100 MG CAPSULE (FP) PO SCH ×3 (05:19→21:00)
[2021-05-16] MEDS: MULTIVITAMINS (DAILY MVI) TABLET (FP) PO SCH (10:14)
[2021-05-16] MEDS: AMINO ACIDS/PROTEIN HYDROLYS 30 ML LIQUID.PKT PO SCH ×2 (10:14→18:53)
[2021-05-16] MEDS: CARVEDILOL 12.5 MG TABLET (FP) PO SCH ×2 (10:14→21:00)
[2021-05-16] MEDS: AMOX TR/POT CLAV 875MG/125MG TABLETS (FP) PO SCH ×2 (10:15→18:53)
[2021-05-16] MEDS: hydrALAZINE HCL 25 MG TABLET (FP) PO SCH ×2 (10:15→21:00)
[2021-05-16] MEDS: LOSARTAN POTASSIUM 50 MG TABLET PO SCH (10:15)
[2021-05-16] MEDS: SENNOSIDES 8.6MG TABLET (FP) PO SCH (21:00)
[2021-05-16] MEDS: ATORVASTATIN CA 80 MG TABLET (FP) PO SCH (21:00)
[2021-05-16] MEDS: MIRTAZAPINE 15 MG TABLET (FP) PO SCH (21:00)
[2021-05-17] MEDS: DOCUSATE SODIUM 100 MG CAPSULE (FP) PO SCH ×2 (05:35→14:51)
[2021-05-17] MEDS: AMOX TR/POT CLAV 875MG/125MG TABLETS (FP) PO SCH (08:29)
[2021-05-17] MEDS: AMINO ACIDS/PROTEIN HYDROLYS 30 ML LIQUID.PKT PO SCH (08:29)
[2021-05-17] MEDS: CARVEDILOL 12.5 MG TABLET (FP) PO SCH (10:11)
[2021-05-17] MEDS: MULTIVITAMINS (DAILY MVI) TABLET (FP) PO SCH (10:11)
[2021-05-17] MEDS: hydrALAZINE HCL 25 MG TABLET (FP) PO SCH (10:11)
[2021-05-17] MEDS: LOSARTAN POTASSIUM 50 MG TABLET PO SCH (10:12)
[2021-05-17 11:30] VITALS: BP 140/79; PULSE 77; TEMP 98
== END 2021-05-17 15:03 | DRG 871 ==
LOC: JER 19:02 → JERBED 19:42 → J4W 05-04 04:53
PROVIDERS: ADMIT Internal Medicine; ATTEND Nurse Practitioner Family
PROC: 0W9B30Z Drainage of Left Pleural Cavity with Drainage Device, Percutaneous Approach (ICD-10-PCS; 2021-05-04)
PROC: 4A00X4Z Measurement of Central Nervous Electrical Activity, External Approach (ICD-10-PCS; 2021-05-06)
PROC: 0WPBX0Z Removal of Drainage Device from Left Pleural Cavity, External Approach (ICD-10-PCS; principal; 2021-05-13)
DX: A41.89 Other specified sepsis (principal); G93.41 Metabolic encephalopathy; J18.9 Pneumonia, unspecified organism; I69.354 Hemiplegia and hemiparesis following cerebral infarction affecting left non-dominant side; J90 Pleural effusion, not elsewhere classified; N17.9 Acute kidney failure, unspecified; E87.0 Hyperosmolality and hypernatremia; E44.0 Moderate protein-calorie malnutrition; E87.2 Acidosis; R65.20 Severe sepsis without septic shock; F03.90 Unspecified dementia, unspecified severity, without behavioral disturbance, psychotic disturbance, mood disturbance, and anxiety; I10 Essential (primary) hypertension; E78.5 Hyperlipidemia, unspecified; M10.9 Gout, unspecified; R56.9 Unspecified convulsions; Z68.20 Body mass index [BMI] 20.0-20.9, adult; I35.0 Nonrheumatic aortic (valve) stenosis; I48.0 Paroxysmal atrial fibrillation; D64.9 Anemia, unspecified; R13.10 Dysphagia, unspecified; R50.9 Fever, unspecified; R09.02 Hypoxemia; E87.6 Hypokalemia
CPT/HCPCS: 32557; 36415; 70450-TC; 70551-TC; 71045-TC-FY; 71046-TC-FY; 71250-TC; 72125-TC; 74176-TC; 74230-TC-FY; 80048; 80053; 80061; 81003; 82042; 82150; 82728; 82945; 83036; 83540; 83550; 83605; 83615; 83735; 83880; 83986; 84100; 84157; 84478; 84484; 85025; 85027; 85045; 85610; 85730; 87040; 87070; 87075; 87086; 87102; 87116; 87205; 87206; 87210; 87804; 87899; 88108; 88305-TC; 92611-GN; 93005; 93010; 94010; 95816; 97116-GP; 97162-GP; 99291; C9803; J0131; U0003; U0005

== ENCOUNTER 2021-08-14 18:18 | Inpatient (IN) | payer OTHER ==
[2021-08-14 18:39] VITALS: BMI 17.2
[2021-08-14] MEDS ORDERED: SODIUM CHLORIDE 1,500 ML IV ONE (18:40)
[2021-08-14] MEDS ORDERED: PIPERACILLIN/TAZOB 4.5 GM 4.5 GM in DEXTROSE 5%-WATER 100 ML IVPB ONE (18:41)
[2021-08-14] MEDS ORDERED: ACETAMINOPHEN 1000 MG/100 ML BAG IVPB ONE (18:42)
[2021-08-14 18:59] LABS: ARTERIAL BLOOD GAS BASE EXCESS 1.3 mmol/L (-2-2); ARTERIAL BLOOD GAS PO2 107.7 mmHg (80-100); ARTERIAL BLOOD GAS pH 7.428 (7.350-7.450)
[2021-08-14 19:12] LABS: BASO % 0.3 % (0-2.0); EOS % 0.5 % (0-4.5); HEMOGLOBIN 11.3 GM/dL (11.7-16.9); INR 1.46 (0.83-1.09); LYMPH % 9.9 % (8-40); MCH 24.5 pg (25.7-33.7); MCHC 29.7 g/dl (32.0-35.9); MEAN CELL VOLUME 82.5 fl (80-96); MEAN PLT VOLUME 11.1 fl (7.5-11.1); MONO % 6.3 % (3.8-10.2); PLATELET COUNT 201 10^3/uL (134-434); PROTHROMBIN TIME (PATIENT) 16.8 SEC (9.7-13.0); RBC 4.61 M/mm3 (4.00-5.60); RDW 25.3 % (11.9-15.9); WHITE BLOOD COUNT 9.5 K/mm3 (4.0-10.0)
[2021-08-14 19:14] LABS: ACTIVATED PTT 31.8 SECONDS (25.2-36.5)
[2021-08-14 19:22] LABS: CHLORIDE 145 mmol/L (98-107)
[2021-08-14 19:24] LABS: CALCIUM 8.9 mg/dL (8.5-10.1)
[2021-08-14 19:25] LABS: ALBUMIN 2.4 g/dl (3.4-5.0); BLOOD UREA NITROGEN 68.5 mg/dL (7-18); CO2 27 mmol/L (21-32); GLUCOSE,RANDOM 133 mg/dL (74-106)
[2021-08-14 19:28] LABS: CREATININE 2.4 mg/dL (0.55-1.3); SGOT/AST 28 U/L (15-37); SGPT/ALT 28 U/L (13-61)
[2021-08-14 19:29] LABS: BILIRUBIN,TOTAL 0.4 mg/dL (0.2-1); TOT PROT 7.2 g/dl (6.4-8.2)
[2021-08-14 19:31] LABS: ALK PHOS 69 U/L (45-117)
[2021-08-14 19:59] LABS: ANION GAP 4 MMOL/L (8-16); SODIUM 176 mmol/L (136-145)
[2021-08-14 20:02] LABS: EPI CELLS 18 /uL (0-25.1); HYALINE CASTS 15 /uL (0-3.1); URINE APPEARANCE CLOUDY; URINE BACTERIA 3 /uL (0-1359); URINE BILIRUBIN NEGATIVE (NEGATIVE); URINE COLOR DK YELLOW; URINE GLUCOSE (UA) NEGATIVE (NEGATIVE); URINE KETONE TRACE (NEGATIVE); URINE LEUK ESTERASE NEGATIVE (NEGATIVE); URINE NITRITE NEGATIVE (NEGATIVE); URINE PROTEIN 1+ (NEGATIVE); URINE RBC 21 /uL (0-23.9); URINE UROBILINOGEN 0.2 mg/dL (0.2-1.0); URINE WBC 14 /uL (0-25.8)
[2021-08-14] MEDS ORDERED: SODIUM CHLORIDE 0.45% 500 ML IV SCH (20:15)
[2021-08-14 20:30] LABS: ANISOCYTOSIS 1+; MACROCYTOSIS 0; OVALOCYTE 2+; PLATELET ESTIMATE NORMAL
[2021-08-14 20:58] LABS: CHLORIDE 145 mmol/L (98-107)
[2021-08-14 21:00] LABS: CALCIUM 8.5 mg/dL (8.5-10.1); CO2 26 mmol/L (21-32); GLUCOSE,RANDOM 139 mg/dL (74-106)
[2021-08-14 21:01] LABS: BLOOD UREA NITROGEN 71.3 mg/dL (7-18)
[2021-08-14 21:04] LABS: CREATININE 2.3 mg/dL (0.55-1.3)
[2021-08-14 21:08] LABS: ANION GAP 3 MMOL/L (8-16); SODIUM 175 mmol/L (136-145)
[2021-08-14] MEDS ORDERED: VANCOMYCIN 1 GM in D5W (PRE-DOCKED) 1,000 MG/250 ML IVPB ONE (22:46)
[2021-08-14] MEDS ORDERED: LACTATED RINGERS SOLUTION 1000 ML INFUS.BAG IV ONE (23:53)
[2021-08-15] MEDS ORDERED: HEPARIN NA (PORCINE) 5,000 UNITS/ML 1ML VIAL SQ SCH ×2 (02:30→03:35)
[2021-08-15] MEDS ORDERED: DEXTROSE 5%-WATER - 1,000 ML IV SCH ×2 (02:45→18:45)
[2021-08-15 03:34] LABS: CHLORIDE 137 mmol/L (98-107)
[2021-08-15 03:35] LABS: CALCIUM 8.2 mg/dL (8.5-10.1)
[2021-08-15 03:36] LABS: BLOOD UREA NITROGEN 71.9 mg/dL (7-18); CO2 27 mmol/L (21-32); GLUCOSE,RANDOM 158 mg/dL (74-106); MAGNESIUM 2.8 mg/dL (1.8-2.4)
[2021-08-15 03:39] LABS: CREATININE 2.3 mg/dL (0.55-1.3); PHOSPHOROUS 3.3 mg/dL (2.5-4.9)
[2021-08-15 03:55] LABS: ANION GAP 4 MMOL/L (8-16); SODIUM 168 mmol/L (136-145)
[2021-08-15] MEDS: LINEZOLID 600 MG PREMIX BAG 600 MG/300 ML BAG IVPB SCH ×2 (04:06→17:00)
[2021-08-15 08:20] LABS: BASO % 0.8 % (0-2.0); HEMOGLOBIN 11.4 GM/dL (11.7-16.9); LYMPH % 12.4 % (8-40); MCH 25.2 pg (25.7-33.7); MCHC 30.9 g/dl (32.0-35.9); MEAN CELL VOLUME 81.7 fl (80-96); MEAN PLT VOLUME 10.5 fl (7.5-11.1); MONO % 5.6 % (3.8-10.2); NEUT % 80.2 % (42.8-82.8); PLATELET COUNT 159 10^3/uL (134-434); RBC 4.53 M/mm3 (4.00-5.60); RDW 25.9 % (11.9-15.9); WHITE BLOOD COUNT 6.8 K/mm3 (4.0-10.0)
[2021-08-15] MEDS ORDERED: ACETAMINOPHEN 325 MG TABLET (FP) PO PRN (08:38)
[2021-08-15 08:44] LABS: CHLORIDE 137 mmol/L (98-107)
[2021-08-15 08:49] LABS: CALCIUM 8.2 mg/dL (8.5-10.1)
[2021-08-15 08:50] LABS: BLOOD UREA NITROGEN 67.7 mg/dL (7-18); CO2 26 mmol/L (21-32); MAGNESIUM 2.8 mg/dL (1.8-2.4)
[2021-08-15 08:52] LABS: GLUCOSE,RANDOM 129 mg/dL (74-106)
[2021-08-15 08:53] LABS: PHOSPHOROUS 2.7 mg/dL (2.5-4.9)
[2021-08-15 08:55] LABS: CREATININE 2.1 mg/dL (0.55-1.3)
[2021-08-15 08:56] LABS: ANION GAP 5 MMOL/L (8-16); SODIUM 169 mmol/L (136-145)
[2021-08-15] MEDS ORDERED: PIPERACILLIN/TAZOB 3.375 GM 3.375 GM in DEXTROSE 5%-WATER - 50 ML IVPB SCH (10:00)
[2021-08-15] MEDS ORDERED: DEXTROSE 5%-0.45% SALINE 1,000 ML IV SCH (10:45)
[2021-08-15] MEDS: PANTOPRAZOLE 40 MG TABLET PO SCH (11:10)
[2021-08-15] MEDS: DEXAMETHASONE SOD PHOSPHATE 10 MG/1 ML VIAL IVPUSH SCH (11:10)
[2021-08-15] MEDS ORDERED: ACETAMINOPHEN 1000 MG/100 ML BAG IVPB PRN (13:23)
[2021-08-15] MEDS ORDERED: HEPARIN NA (PORCINE) 5,000 UNITS/ML 1ML VIAL ONE (13:34)
[2021-08-15] MEDS ORDERED: DONEPEZIL HCL 5 MG TABLET (FP) ONE (13:34)
[2021-08-15] MEDS ORDERED: PIPERACILLIN/TAZOB 3.375 GM 3.375 GM/50 ML BAG IVPB ONE (13:35)
[2021-08-15] MEDS: HEPARIN NA (PORCINE) 5,000 UNITS/ML 1ML VIAL SQ SCH ×2 (14:30→22:20)
[2021-08-15] MEDS ORDERED: REMDESIVIR 200 MG in SODIUM CHLORIDE 250 ML IVPB ONE ×2 (16:12→16:14)
[2021-08-15 17:48] LABS: CHLORIDE 136 mmol/L (98-107)
[2021-08-15 17:50] LABS: BLOOD UREA NITROGEN 63.5 mg/dL (7-18); CO2 26 mmol/L (21-32); GLUCOSE,RANDOM 171 mg/dL (74-106)
[2021-08-15 17:53] LABS: CREATININE 2.2 mg/dL (0.55-1.3)
[2021-08-15] MEDS: PIPERACILLIN/TAZOB 3.375 GM 3.375 GM in DEXTROSE 5%-WATER - 50 ML IVPB SCH (18:03)
[2021-08-15] MEDS: DONEPEZIL HCL 5 MG TABLET (FP) PO SCH (18:04)
[2021-08-15 18:33] LABS: ANION GAP 7 MMOL/L (8-16); SODIUM 169 mmol/L (136-145)
[2021-08-15 22:55] LABS: CHLORIDE 139 mmol/L (98-107)
[2021-08-15 22:57] LABS: CALCIUM 7.4 mg/dL (8.5-10.1)
[2021-08-15 22:58] LABS: BLOOD UREA NITROGEN 63.9 mg/dL (7-18); CO2 26 mmol/L (21-32); GLUCOSE,RANDOM 180 mg/dL (74-106)
[2021-08-15 23:01] LABS: CREATININE 2.1 mg/dL (0.55-1.3)
[2021-08-15 23:05] LABS: ANION GAP 2 MMOL/L (8-16); SODIUM 168 mmol/L (136-145)
[2021-08-16] MEDS: MIRTAZAPINE 15 MG TABLET (FP) PO SCH ×2 (00:19→22:50)
[2021-08-16] MEDS: ATORVASTATIN CA 80 MG TABLET (FP) PO SCH ×2 (00:19→22:50)
[2021-08-16] MEDS ORDERED: PIPERACILLIN/TAZOBACTAM 3.375 GM VIAL IVPB ONE ×3 (02:40→17:09)
[2021-08-16] MEDS ORDERED: DEXTROSE 5%-WATER - 50 ML IVPB ONE ×3 (02:40→17:09)
[2021-08-16] MEDS: PIPERACILLIN/TAZOB 3.375 GM 3.375 GM in DEXTROSE 5%-WATER - 50 ML IVPB SCH ×3 (02:42→17:23)
[2021-08-16 03:19] LABS: CHLORIDE 136 mmol/L (98-107)
[2021-08-16 03:20] LABS: CALCIUM 7.5 mg/dL (8.5-10.1)
[2021-08-16 03:21] LABS: BLOOD UREA NITROGEN 60.7 mg/dL (7-18); CO2 28 mmol/L (21-32); GLUCOSE,RANDOM 145 mg/dL (74-106)
[2021-08-16 04:55] LABS: ANION GAP 3 MMOL/L (8-16); SODIUM 167 mmol/L (136-145)
[2021-08-16] MEDS: HEPARIN NA (PORCINE) 5,000 UNITS/ML 1ML VIAL SQ SCH ×3 (06:44→22:49)
[2021-08-16 07:32] LABS: HEMATOCRIT 34.9 % (35.4-49); HEMOGLOBIN 10.5 GM/dL (11.7-16.9); MEAN CELL VOLUME 83.3 fl (80-96); MEAN PLT VOLUME 11.2 fl (7.5-11.1); PLATELET COUNT 133 10^3/uL (134-434); RBC 4.19 M/mm3 (4.00-5.60); RDW 25.8 % (11.9-15.9); WHITE BLOOD COUNT 7.8 K/mm3 (4.0-10.0)
[2021-08-16 07:44] LABS: CHLORIDE 137 mmol/L (98-107)
[2021-08-16 07:47] LABS: CALCIUM 7.5 mg/dL (8.5-10.1)
[2021-08-16 07:48] LABS: BLOOD UREA NITROGEN 60.1 mg/dL (7-18); CO2 26 mmol/L (21-32); GLUCOSE,RANDOM 146 mg/dL (74-106); MAGNESIUM 2.8 mg/dL (1.8-2.4)
[2021-08-16 07:51] LABS: CREATININE 1.9 mg/dL (0.55-1.3); PHOSPHOROUS 3.9 mg/dL (2.5-4.9); SGOT/AST 23 U/L (15-37); SGPT/ALT 18 U/L (13-61)
[2021-08-16 07:52] LABS: BILIRUBIN,TOTAL 0.7 mg/dL (0.2-1); LDH 246 U/L (87-246)
[2021-08-16 07:53] LABS: TOT PROT 6.1 g/dl (6.4-8.2)
[2021-08-16 07:54] LABS: ALK PHOS 59 U/L (45-117)
[2021-08-16 07:55] LABS: ALBUMIN 1.9 g/dl (3.4-5.0); ANION GAP 3 MMOL/L (8-16); SODIUM 166 mmol/L (136-145)
[2021-08-16] MEDS ORDERED: DEXTROSE 5%-WATER - 1,000 ML IV SCH ×2 (09:04→11:56)
[2021-08-16] MEDS ORDERED: LINEZOLID 600 MG PREMIX BAG 600 MG/300 ML BAG IVPB SCH (10:00)
[2021-08-16] MEDS ORDERED: PIPERACILLIN/TAZOB 3.375 GM 3.375 GM in DEXTROSE 5%-WATER - 50 ML IVPB SCH (10:00)
[2021-08-16] MEDS: DEXAMETHASONE SOD PHOSPHATE 10 MG/1 ML VIAL IVPUSH SCH (10:22)
[2021-08-16] MEDS: PANTOPRAZOLE 40 MG TABLET PO SCH (10:23)
[2021-08-16] MEDS ORDERED: ACETAMINOPHEN 325 MG TABLET (FP) PO PRN (13:52)
[2021-08-16 15:28] LABS: CHLORIDE 132 mmol/L (98-107)
[2021-08-16 15:30] LABS: CALCIUM 7.9 mg/dL (8.5-10.1)
[2021-08-16 15:31] LABS: BLOOD UREA NITROGEN 52.9 mg/dL (7-18); CO2 27 mmol/L (21-32); GLUCOSE,RANDOM 192 mg/dL (74-106)
[2021-08-16 15:34] LABS: CREATININE 1.7 mg/dL (0.55-1.3)
[2021-08-16 15:35] LABS: ANION GAP 5 MMOL/L (8-16); SODIUM 164 mmol/L (136-145)
[2021-08-16] MEDS: DONEPEZIL HCL 5 MG TABLET (FP) PO SCH (17:22)
[2021-08-16] MEDS: REMDESIVIR 100 MG in SODIUM CHLORIDE 250 ML IVPB SCH (18:47)
[2021-08-17 01:18] LABS: CHLORIDE 131 mmol/L (98-107)
[2021-08-17 01:21] LABS: CALCIUM 7.4 mg/dL (8.5-10.1)
[2021-08-17 01:22] LABS: BLOOD UREA NITROGEN 56.9 mg/dL (7-18); CO2 25 mmol/L (21-32); GLUCOSE,RANDOM 256 mg/dL (74-106)
[2021-08-17 01:25] LABS: CREATININE 1.5 mg/dL (0.55-1.3)
[2021-08-17 01:38] LABS: ANION GAP 5 MMOL/L (8-16); SODIUM 161 mmol/L (136-145)
[2021-08-17] MEDS ORDERED: PIPERACILLIN/TAZOBACTAM 3.375 GM VIAL IVPB ONE ×3 (01:39→18:05)
[2021-08-17] MEDS ORDERED: DEXTROSE 5%-WATER - 50 ML IVPB ONE ×3 (01:39→18:05)
[2021-08-17] MEDS: PIPERACILLIN/TAZOB 3.375 GM 3.375 GM in DEXTROSE 5%-WATER - 50 ML IVPB SCH ×3 (01:58→18:10)
[2021-08-17] MEDS: HEPARIN NA (PORCINE) 5,000 UNITS/ML 1ML VIAL SQ SCH ×3 (06:43→21:51)
[2021-08-17 07:33] LABS: HEMATOCRIT 36.9 % (35.4-49); HEMOGLOBIN 11.3 GM/dL (11.7-16.9); MCH 25.4 pg (25.7-33.7); MCHC 30.6 g/dl (32.0-35.9); MEAN CELL VOLUME 82.9 fl (80-96); MEAN PLT VOLUME 11.2 fl (7.5-11.1); PLATELET COUNT 147 10^3/uL (134-434); RBC 4.45 M/mm3 (4.00-5.60); WHITE BLOOD COUNT 7.2 K/mm3 (4.0-10.0)
[2021-08-17 08:05] LABS: BILIRUBIN,TOTAL 0.6 mg/dL (0.2-1); CALCIUM 7.5 mg/dL (8.5-10.1); TOT PROT 6.1 g/dl (6.4-8.2)
[2021-08-17 08:06] LABS: ALBUMIN 1.7 g/dl (3.4-5.0); BLOOD UREA NITROGEN 56.4 mg/dL (7-18)
[2021-08-17 08:09] LABS: CREATININE 1.5 mg/dL (0.55-1.3)
[2021-08-17] MEDS: DEXAMETHASONE SOD PHOSPHATE 10 MG/1 ML VIAL IVPUSH SCH (10:13)
[2021-08-17] MEDS: PANTOPRAZOLE 40 MG TABLET PO SCH (10:14)
[2021-08-17] MEDS: DEXTROSE 5%-WATER - 1,000 ML IV SCH ×2 (12:17→22:50)
[2021-08-17] MEDS: DONEPEZIL HCL 5 MG TABLET (FP) PO SCH (17:08)
[2021-08-17] MEDS: REMDESIVIR 100 MG in SODIUM CHLORIDE 250 ML IVPB SCH (17:08)
[2021-08-17] MEDS: MIRTAZAPINE 15 MG TABLET (FP) PO SCH (21:50)
[2021-08-17] MEDS: ATORVASTATIN CA 80 MG TABLET (FP) PO SCH (21:50)
[2021-08-18] MEDS ORDERED: DEXTROSE 5%-WATER - 50 ML IVPB ONE ×3 (00:39→16:58)
[2021-08-18] MEDS ORDERED: PIPERACILLIN/TAZOBACTAM 3.375 GM VIAL IVPB ONE ×3 (00:39→16:58)
[2021-08-18] MEDS: PIPERACILLIN/TAZOB 3.375 GM 3.375 GM in DEXTROSE 5%-WATER - 50 ML IVPB SCH ×3 (01:18→17:00)
[2021-08-18] MEDS: HEPARIN NA (PORCINE) 5,000 UNITS/ML 1ML VIAL SQ SCH ×3 (06:01→21:52)
[2021-08-18 07:36] LABS: HEMATOCRIT 30.6 % (35.4-49); HEMOGLOBIN 9.7 GM/dL (11.7-16.9); MCH 25.8 pg (25.7-33.7); MCHC 31.6 g/dl (32.0-35.9); MEAN CELL VOLUME 81.4 fl (80-96); MEAN PLT VOLUME 10.8 fl (7.5-11.1); PLATELET COUNT 132 10^3/uL (134-434); RBC 3.76 M/mm3 (4.00-5.60); RDW 25.3 % (11.9-15.9); WHITE BLOOD COUNT 7.4 K/mm3 (4.0-10.0)
[2021-08-18 08:07] LABS: ALBUMIN 1.7 g/dl (3.4-5.0); BLOOD UREA NITROGEN 55.4 mg/dL (7-18); CALCIUM 7.5 mg/dL (8.5-10.1)
[2021-08-18 08:12] LABS: BILIRUBIN,TOTAL 0.2 mg/dL (0.2-1); CREATININE 1.3 mg/dL (0.55-1.3); PHOSPHOROUS 3.2 mg/dL (2.5-4.9); TOT PROT 5.7 g/dl (6.4-8.2)
[2021-08-18] MEDS ORDERED: POTASSIUM CHLORIDE TABS 20 MEQ TABLET.ER (FP) PO ONE (09:15)
[2021-08-18] MEDS: DEXAMETHASONE SOD PHOSPHATE 10 MG/1 ML VIAL IVPUSH SCH (10:11)
[2021-08-18] MEDS: PANTOPRAZOLE 40 MG TABLET PO SCH (10:13)
[2021-08-18] MEDS ORDERED: POTASSIUM CHLORIDE 20 MEQ in DEXTROSE 5%-WATER - 1,000 ML IV SCH ×2 (12:00→15:05)
[2021-08-18] MEDS: KCL 10 MEQ IVPB 10 MEQ/100 ML INFUS.BAG IVPB SCH (12:35)
[2021-08-18] MEDS: POTASSIUM CHLORIDE 20 MEQ in DEXTROSE 5%-WATER - 1,000 ML IV SCH (16:56)
[2021-08-18] MEDS: AMINO ACIDS 4.25%/D5W 1,000 ML IV SCH (17:01)
[2021-08-18] MEDS: REMDESIVIR 100 MG in SODIUM CHLORIDE 250 ML IVPB SCH (17:01)
[2021-08-18] MEDS: DONEPEZIL HCL 5 MG TABLET (FP) PO SCH (17:39)
[2021-08-18] MEDS: MIRTAZAPINE 15 MG TABLET (FP) PO SCH (21:53)
[2021-08-18] MEDS: ATORVASTATIN CA 80 MG TABLET (FP) PO SCH (21:53)
[2021-08-19] MEDS ORDERED: DEXTROSE 5%-WATER - 50 ML IVPB ONE ×3 (01:22→17:02)
[2021-08-19] MEDS ORDERED: PIPERACILLIN/TAZOBACTAM 3.375 GM VIAL IVPB ONE ×3 (01:22→17:01)
[2021-08-19] MEDS: PIPERACILLIN/TAZOB 3.375 GM 3.375 GM in DEXTROSE 5%-WATER - 50 ML IVPB SCH ×3 (01:52→17:19)
[2021-08-19] MEDS: POTASSIUM CHLORIDE 20 MEQ in DEXTROSE 5%-WATER - 1,000 ML IV SCH ×3 (01:53→21:50)
[2021-08-19] MEDS: HEPARIN NA (PORCINE) 5,000 UNITS/ML 1ML VIAL SQ SCH ×3 (06:11→21:45)
[2021-08-19 07:12] LABS: HEMATOCRIT 30.5 % (35.4-49); HEMOGLOBIN 9.6 GM/dL (11.7-16.9); MCH 25.5 pg (25.7-33.7); MCHC 31.3 g/dl (32.0-35.9); MEAN CELL VOLUME 81.3 fl (80-96); MEAN PLT VOLUME 10.7 fl (7.5-11.1); PLATELET COUNT 121 10^3/uL (134-434); RBC 3.76 M/mm3 (4.00-5.60); RDW 24.5 % (11.9-15.9); WHITE BLOOD COUNT 5.8 K/mm3 (4.0-10.0)
[2021-08-19 08:05] LABS: ALBUMIN 1.6 g/dl (3.4-5.0); BILIRUBIN,TOTAL 0.2 mg/dL (0.2-1); CALCIUM 7.5 mg/dL (8.5-10.1); CREATININE 1.1 mg/dL (0.55-1.3); MAGNESIUM 2.8 mg/dL (1.8-2.4); PHOSPHOROUS 2.4 mg/dL (2.5-4.9); TOT PROT 5.2 g/dl (6.4-8.2)
[2021-08-19] MEDS: PANTOPRAZOLE 40 MG TABLET PO SCH (09:38)
[2021-08-19] MEDS: DEXAMETHASONE SOD PHOSPHATE 10 MG/1 ML VIAL IVPUSH SCH (09:49)
[2021-08-19] MEDS ORDERED: POTASSIUM PHOSPHATE 30 MM in DEXTROSE 5%-WATER - 500 ML IVPB ONE (14:00)
[2021-08-19] MEDS: AMINO ACIDS 4.25%/D5W 1,000 ML IV SCH (15:40)
[2021-08-19 16:20] LABS: CALCIUM 7.5 mg/dL (8.5-10.1)
[2021-08-19] MEDS: DONEPEZIL HCL 5 MG TABLET (FP) PO SCH (17:01)
[2021-08-19] MEDS: REMDESIVIR 100 MG in SODIUM CHLORIDE 250 ML IVPB SCH (17:19)
[2021-08-19] MEDS: MIRTAZAPINE 15 MG TABLET (FP) PO SCH (21:45)
[2021-08-19] MEDS: ATORVASTATIN CA 80 MG TABLET (FP) PO SCH (21:45)
[2021-08-20] MEDS ORDERED: PIPERACILLIN/TAZOBACTAM 3.375 GM VIAL IVPB ONE ×3 (01:26→14:27)
[2021-08-20] MEDS ORDERED: DEXTROSE 5%-WATER - 50 ML IVPB ONE ×3 (01:26→14:28)
[2021-08-20] MEDS: PIPERACILLIN/TAZOB 3.375 GM 3.375 GM in DEXTROSE 5%-WATER - 50 ML IVPB SCH ×3 (01:27→18:10)
[2021-08-20] MEDS: HEPARIN NA (PORCINE) 5,000 UNITS/ML 1ML VIAL SQ SCH ×3 (06:17→22:28)
[2021-08-20 06:57] LABS: HEMATOCRIT 34.1 % (35.4-49); HEMOGLOBIN 10.7 GM/dL (11.7-16.9); MCHC 31.5 g/dl (32.0-35.9); MEAN CELL VOLUME 82.4 fl (80-96); MEAN PLT VOLUME 10.4 fl (7.5-11.1); PLATELET COUNT 121 10^3/uL (134-434); RBC 4.13 M/mm3 (4.00-5.60); RDW 24.2 % (11.9-15.9); WHITE BLOOD COUNT 4.4 K/mm3 (4.0-10.0)
[2021-08-20 07:28] LABS: BLOOD UREA NITROGEN 43.5 mg/dL (7-18); CALCIUM 7.4 mg/dL (8.5-10.1); MAGNESIUM 2.4 mg/dL (1.8-2.4)
[2021-08-20 07:29] LABS: ALBUMIN 1.8 g/dl (3.4-5.0)
[2021-08-20 07:31] LABS: PHOSPHOROUS 2.6 mg/dL (2.5-4.9)
[2021-08-20 07:32] LABS: CREATININE 0.9 mg/dL (0.55-1.3)
[2021-08-20 07:33] LABS: BILIRUBIN,TOTAL 0.4 mg/dL (0.2-1); TOT PROT 5.6 g/dl (6.4-8.2)
[2021-08-20] MEDS: DEXAMETHASONE SOD PHOSPHATE 10 MG/1 ML VIAL IVPUSH SCH (11:53)
[2021-08-20] MEDS: POTASSIUM CHLORIDE 20 MEQ in DEXTROSE 5%-WATER - 1,000 ML IV SCH ×2 (11:53→17:12)
[2021-08-20] MEDS: PANTOPRAZOLE 40 MG TABLET PO SCH (11:54)
[2021-08-20] MEDS: AMINO ACIDS 4.25%/D5W 1,000 ML IV SCH ×2 (11:55→16:48)
[2021-08-20] MEDS: DONEPEZIL HCL 5 MG TABLET (FP) PO SCH (18:09)
[2021-08-20] MEDS: ATORVASTATIN CA 80 MG TABLET (FP) PO SCH (21:06)
[2021-08-20] MEDS: MIRTAZAPINE 15 MG TABLET (FP) PO SCH (21:06)
[2021-08-21] MEDS ORDERED: DEXTROSE 5%-WATER - 50 ML IVPB ONE ×3 (01:36→16:48)
[2021-08-21] MEDS ORDERED: PIPERACILLIN/TAZOBACTAM 3.375 GM VIAL IVPB ONE ×3 (01:36→16:48)
[2021-08-21] MEDS: PIPERACILLIN/TAZOB 3.375 GM 3.375 GM in DEXTROSE 5%-WATER - 50 ML IVPB SCH ×3 (01:57→16:59)
[2021-08-21] MEDS: POTASSIUM CHLORIDE 20 MEQ in DEXTROSE 5%-WATER - 1,000 ML IV SCH (03:06)
[2021-08-21] MEDS: HEPARIN NA (PORCINE) 5,000 UNITS/ML 1ML VIAL SQ SCH ×3 (06:20→22:58)
[2021-08-21] MEDS: DEXAMETHASONE SOD PHOSPHATE 10 MG/1 ML VIAL IVPUSH SCH (09:16)
[2021-08-21] MEDS: PANTOPRAZOLE 40 MG TABLET PO SCH (09:16)
[2021-08-21 09:19] LABS: HEMATOCRIT 34.9 % (35.4-49); HEMOGLOBIN 11.4 GM/dL (11.7-16.9); MCHC 32.7 g/dl (32.0-35.9); MEAN CELL VOLUME 79.5 fl (80-96); MEAN PLT VOLUME 10.6 fl (7.5-11.1); PLATELET COUNT 134 10^3/uL (134-434); RDW 23.3 % (11.9-15.9); WHITE BLOOD COUNT 7.1 K/mm3 (4.0-10.0)
[2021-08-21 09:42] LABS: CALCIUM 8.2 mg/dL (8.5-10.1)
[2021-08-21 09:43] LABS: ALBUMIN 1.9 g/dl (3.4-5.0); BLOOD UREA NITROGEN 30.9 mg/dL (7-18); MAGNESIUM 2.2 mg/dL (1.8-2.4)
[2021-08-21 09:47] LABS: BILIRUBIN,TOTAL 0.5 mg/dL (0.2-1); CREATININE 0.8 mg/dL (0.55-1.3); TOT PROT 5.9 g/dl (6.4-8.2)
[2021-08-21] MEDS: AMINO ACIDS 4.25%/D5W 1,000 ML IV SCH (12:19)
[2021-08-21] MEDS ORDERED: POTASSIUM CHLORIDE 10 MEQ in AMINO ACIDS 4.25%/D5W 1,000 ML IV SCH (13:29)
[2021-08-21] MEDS ORDERED: POTASSIUM PHOSPHATE 30 MM in SODIUM CHLORIDE 500 ML IVPB ONE (13:41)
[2021-08-21] MEDS: DONEPEZIL HCL 5 MG TABLET (FP) PO SCH (17:06)
[2021-08-21] MEDS: ATORVASTATIN CA 80 MG TABLET (FP) PO SCH (21:59)
[2021-08-21] MEDS: MIRTAZAPINE 15 MG TABLET (FP) PO SCH (21:59)
[2021-08-21] MEDS ORDERED: FAT EMULSION/OLIVE/SOY (CLINOLIPID) 250 ML EMULSION IV SCH (22:00)
[2021-08-21] MEDS ORDERED: FAT EMULSION/OLIVE/SOY/PHOSPHO 250 ML IV SCH (22:00)
[2021-08-22] MEDS ORDERED: DEXTROSE 5%-WATER - 50 ML IVPB ONE ×3 (01:35→18:03)
[2021-08-22] MEDS ORDERED: PIPERACILLIN/TAZOBACTAM 3.375 GM VIAL IVPB ONE ×3 (01:35→18:03)
[2021-08-22] MEDS: PIPERACILLIN/TAZOB 3.375 GM 3.375 GM in DEXTROSE 5%-WATER - 50 ML IVPB SCH ×3 (02:27→18:06)
[2021-08-22] MEDS: HEPARIN NA (PORCINE) 5,000 UNITS/ML 1ML VIAL SQ SCH (05:15)
[2021-08-22 08:31] LABS: HEMATOCRIT 31.9 % (35.4-49); HEMOGLOBIN 10.5 GM/dL (11.7-16.9); MCH 25.8 pg (25.7-33.7); MCHC 32.9 g/dl (32.0-35.9); MEAN CELL VOLUME 78.2 fl (80-96); MEAN PLT VOLUME 10.3 fl (7.5-11.1); PLATELET COUNT 138 10^3/uL (134-434); RBC 4.07 M/mm3 (4.00-5.60)
[2021-08-22 09:01] LABS: CALCIUM 7.8 mg/dL (8.5-10.1)
[2021-08-22 09:02] LABS: ALBUMIN 1.8 g/dl (3.4-5.0); BLOOD UREA NITROGEN 28.1 mg/dL (7-18); CHOLESTEROL 85 mg/dL (50-200); MAGNESIUM 1.9 mg/dL (1.8-2.4); TRIGLYCERIDES 132 mg/dL (0-150)
[2021-08-22 09:03] LABS: LDL CHOLESTEROL (ONLY SJRH) 40 mg/dL (5-100)
[2021-08-22 09:05] LABS: CREATININE 0.7 mg/dL (0.55-1.3); HDL CHOLESTEROL 21 mg/dL (40-60); PHOSPHOROUS 2.5 mg/dL (2.5-4.9)
[2021-08-22 09:06] LABS: BILIRUBIN,TOTAL 0.4 mg/dL (0.2-1); TOT PROT 5.6 g/dl (6.4-8.2)
[2021-08-22] MEDS: PANTOPRAZOLE 40 MG TABLET PO SCH (09:20)
[2021-08-22] MEDS: DEXAMETHASONE SOD PHOSPHATE 10 MG/1 ML VIAL IVPUSH SCH (09:20)
[2021-08-22 13:35] VITALS: BP 140/78; PULSE 104; TEMP 97.4
[2021-08-22] MEDS: DONEPEZIL HCL 5 MG TABLET (FP) PO SCH (18:02)
[2021-08-22] MEDS ORDERED: CARVEDILOL 12.5 MG TABLET (FP) PO SCH (22:00)
[2021-08-22] MEDS ORDERED: hydrALAZINE HCL 25 MG TABLET (FP) PO SCH (22:00)
[2021-08-23] MEDS ORDERED: LOSARTAN POTASSIUM 50 MG TABLET PO SCH (10:00)
[2021-08-23] MEDS ORDERED: ASCORBIC ACID 500 MG TABLET (FP) PO SCH (10:00)
== END 2021-08-22 20:23 | disposition hospice, inpatient (51) | DRG 177 ==
LOC: JER 18:18 → JERBED 23:17 → J4W 08-15 18:54
PROVIDERS: ADMIT Internal Medicine; ATTEND Internal Medicine
PROC: XW033E5 Introduction of Remdesivir Anti-infective into Peripheral Vein, Percutaneous Approach, New Technology Group 5 (ICD-10-PCS; principal; 2021-08-15)
DX: U07.1 COVID-19 (principal); J12.82 Pneumonia due to coronavirus disease 2019; J96.01 Acute respiratory failure with hypoxia; R53.2 Functional quadriplegia; G93.41 Metabolic encephalopathy; E43 Unspecified severe protein-calorie malnutrition; E87.1 Hypo-osmolality and hyponatremia; I69.354 Hemiplegia and hemiparesis following cerebral infarction affecting left non-dominant side; N17.9 Acute kidney failure, unspecified; E87.0 Hyperosmolality and hypernatremia; N39.0 Urinary tract infection, site not specified; J98.11 Atelectasis; R64 Cachexia; J90 Pleural effusion, not elsewhere classified; Z68.1 Body mass index [BMI] 19.9 or less, adult; R50.9 Fever, unspecified; E78.5 Hyperlipidemia, unspecified; N40.0 Benign prostatic hyperplasia without lower urinary tract symptoms; F03.90 Unspecified dementia, unspecified severity, without behavioral disturbance, psychotic disturbance, mood disturbance, and anxiety; M10.9 Gout, unspecified; E86.0 Dehydration; I35.0 Nonrheumatic aortic (valve) stenosis; R13.10 Dysphagia, unspecified; Z74.01 Bed confinement status
CPT/HCPCS: 36415; 36600; 70450-TC; 71045-TC-FY; 71250-TC; 76775-TC; 80048; 80053; 80061; 81003; 82550; 82570; 82728; 82803; 83605; 83615; 83735; 83930; 83935; 84100; 84300; 84484; 85025; 85027; 85379; 85610; 85730; 86140; 87040; 87086; 87804; 87899; 93005; 93010; 94660; 99285-25; C9399; C9803; G0480; J0131; J1100; J1644; U0003; U0005

== ENCOUNTER 2022-05-28 12:37 | Inpatient (IN) | payer OTHER, MEDICARE ==
[~2022-05-28 12:37] MED LIST: CEFEPIME 2 GM in DEXTROSE 5%-WATER 100 ML IVPB ONE
[2022-05-28 13:04] VITALS: BMI 22.7
[2022-05-28] MEDS ORDERED: SODIUM CHLORIDE 1,973 ML IV ONE (13:22)
[2022-05-28] MEDS ORDERED: VANCOMYCIN 1 GM in D5W (PRE-DOCKED) 1,000 MG/250 ML IVPB ONE (13:47)
[2022-05-28] MEDS ORDERED: PIPERACILLIN/TAZOB 4.5 GM 4.5 GM in DEXTROSE 5%-WATER 100 ML IVPB ONE (13:47)
[2022-05-28 13:58] LABS: BASO % 0.7 % (0-2.0); EOS % 0.3 % (0-4.5); HEMATOCRIT 33.6 % (35.4-49); HEMOGLOBIN 10.4 GM/dL (11.7-16.9); LYMPH % 8.5 % (8-40); MCH 25.5 pg (25.7-33.7); MCHC 30.9 g/dl (32.0-35.9); MEAN CELL VOLUME 82.6 fl (80-96); MEAN PLT VOLUME 8.5 fl (7.5-11.1); NEUT % 85.5 % (42.8-82.8); PLATELET COUNT 242 10^3/uL (134-434); RBC 4.07 M/mm3 (4.00-5.60); RDW 21.7 % (11.9-15.9); WHITE BLOOD COUNT 7.2 K/mm3 (4.0-10.0)
[2022-05-28 14:04] LABS: VENOUS BASE EXCESS -6.9 mmol/L (-2-2); VENOUS O2 SATURATION 22.3 % (70-80); VENOUS PCO2 45.3 mmHg (38-52); VENOUS PH 7.262 (7.310-7.410)
[2022-05-28 14:08] LABS: INR 1.41 (0.83-1.09); PROTHROMBIN TIME (PATIENT) 16.3 SEC (9.7-13.0)
[2022-05-28 14:10] LABS: ACTIVATED PTT 38.3 SECONDS (25.2-36.5)
[2022-05-28] MEDS ORDERED: VANCOMYCIN/WATER FOR INJ (PEG) 1,000 MG/200 ML BAG IVPB ONE (14:13)
[2022-05-28] MEDS ORDERED: PIPERACILLIN/TAZOB 4.5 GM 4.5 GM/100 ML BAG IVPB ONE (14:13)
[2022-05-28 14:25] LABS: CHLORIDE 133 mmol/L (98-107); SODIUM 158 mmol/L (136-145)
[2022-05-28 14:28] LABS: ALBUMIN 2.1 g/dl (3.4-5.0); BLOOD UREA NITROGEN 57.2 mg/dL (7-18); CALCIUM 9.5 mg/dL (8.5-10.1); CO2 21 mmol/L (21-32); GLUCOSE,RANDOM 134 mg/dL (74-106)
[2022-05-28 14:31] LABS: SGOT/AST 15 U/L (15-37)
[2022-05-28 14:33] LABS: BILIRUBIN,TOTAL 0.2 mg/dL (0.2-1); TOT PROT 7.6 g/dl (6.4-8.2)
[2022-05-28 14:34] LABS: ALK PHOS 78 U/L (45-117)
[2022-05-28 14:38] LABS: ANISOCYTOSIS 2+; MACROCYTOSIS 0
[2022-05-28 14:43] LABS: ANION GAP 4 MMOL/L (8-16); CREATININE 2.3 mg/dL (0.55-1.3); SGPT/ALT 11 U/L (13-61)
[2022-05-28] MEDS ORDERED: CALCIUM GLUC IN NACL, ISO-OSM 1 GM/50 ML BAG IVPB ONE ×2 (15:19→15:33)
[2022-05-28] MEDS ORDERED: DEXTROSE 50%-WATER - 25 GM/50 ML VIAL IVPUSH ONE (15:19)
[2022-05-28] MEDS ORDERED: INSULIN REGULAR HUMAN 100 UNITS/ML *VIAL IVPUSH ONE (15:19)
[2022-05-28] MEDS ORDERED: SODIUM BICARBONATE 8.4% 50 MEQ/50 ML DISP.SYRIN IVPUSH ONE (15:20)
[2022-05-28] MEDS ORDERED: SODIUM BICARBONATE 8.4% 10 MEQ/10 ML VIAL ONE (15:33)
[2022-05-28] MEDS ORDERED: ALBUTEROL SO4 0.5 % INH SOLN 2.5 MG/0.5 ML VIAL.NEB. NEB ONE (15:33)
[2022-05-28] MEDS ORDERED: DEXTROSE 50%-WATER 25 GM/50 ML DISP.SYRIN ONE (15:33)
[2022-05-28] MEDS ORDERED: INSULIN REGULAR HUMAN 100 UNITS/ML *VIAL ONE (15:33)
[2022-05-28] MEDS: ALBUTEROL SO4 0.083% IH SOL 2.5 MG/3 ML VIAL.NEB. NEB SCH ×4 (15:55→18:51)
[2022-05-28 16:23] LABS: EPI CELLS 3 /uL (0-25.1); HYALINE CASTS 1 /uL (0-3.1); PH,URINE 5.5 (5.0-8.0); URINE APPEARANCE CLOUDY; URINE BACTERIA 19 /uL (0-1359); URINE BILIRUBIN NEGATIVE (NEGATIVE); URINE COLOR YELLOW; URINE GLUCOSE (UA) NEGATIVE (NEGATIVE); URINE KETONE NEGATIVE (NEGATIVE); URINE LEUK ESTERASE 3+ (NEGATIVE); URINE NITRITE NEGATIVE (NEGATIVE); URINE PROTEIN 2+ (NEGATIVE); URINE RBC 61 /uL (0-23.9); URINE UROBILINOGEN 0.2 mg/dL (0.2-1.0); URINE WBC 1480 /uL (0-25.8)
[2022-05-28 17:38] LABS: YEAST OCCASIONAL (NEGATIVE)
[2022-05-28] MEDS ORDERED: DEXTROSE 5%-0.45% SALINE 1,000 ML IV SCH (18:00)
[2022-05-28 18:06] LABS: CALCIUM 8.8 mg/dL (8.5-10.1)
[2022-05-28 18:10] LABS: CREATININE 1.8 mg/dL (0.55-1.3)
[2022-05-28] MEDS ORDERED: ATORVASTATIN CA 80 MG TABLET (FP) PO SCH (22:00)
[2022-05-28] MEDS ORDERED: MIRTAZAPINE 15 MG TABLET (FP) PO SCH (22:00)
[2022-05-28] MEDS: CARVEDILOL 12.5 MG TABLET (FP) PO SCH (22:01)
[2022-05-28] MEDS: hydrALAZINE HCL 25 MG TABLET (FP) PO SCH (22:01)
[2022-05-29 07:29] LABS: HEMATOCRIT 29.4 % (35.4-49); HEMOGLOBIN 9.6 GM/dL (11.7-16.9); MCH 26.3 pg (25.7-33.7); MCHC 32.6 g/dl (32.0-35.9); MEAN CELL VOLUME 80.7 fl (80-96); MEAN PLT VOLUME 8.3 fl (7.5-11.1); PLATELET COUNT 198 10^3/uL (134-434); RBC 3.64 M/mm3 (4.00-5.60); RDW 21.1 % (11.9-15.9); WHITE BLOOD COUNT 7.4 K/mm3 (4.0-10.0)
[2022-05-29 07:50] LABS: CALCIUM 8.8 mg/dL (8.5-10.1)
[2022-05-29 07:51] LABS: BLOOD UREA NITROGEN 42.1 mg/dL (7-18)
[2022-05-29 07:53] LABS: CREATININE 1.4 mg/dL (0.55-1.3)
[2022-05-29 07:55] LABS: TOT PROT 6.9 g/dl (6.4-8.2)
[2022-05-29 07:56] LABS: BILIRUBIN,TOTAL 0.2 mg/dL (0.2-1)
[2022-05-29] MEDS ORDERED: TAMSULOSIN HCL 0.4 MG CAP PO SCH (08:30)
[2022-05-29] MEDS ORDERED: TAMSULOSIN HCL 0.4 MG CAP ONE (08:41)
[2022-05-29] MEDS ORDERED: CEFEPIME 2 GM in DEXTROSE 5%-WATER 100 ML IVPB ONE (09:00)
[2022-05-29] MEDS ORDERED: CEFEPIME 2 GM/100 ML BAG IVPB ONE (09:09)
[2022-05-29] MEDS ORDERED: THIAMINE HCL 100 MG TABLET (FP) ONE (09:25)
[2022-05-29] MEDS ORDERED: PANTOPRAZOLE 40 MG TABLET PO ONE (09:25)
[2022-05-29] MEDS ORDERED: CARVEDILOL 12.5 MG TABLET (FP) ONE (09:25)
[2022-05-29] MEDS ORDERED: hydrALAZINE HCL 25 MG TABLET (FP) ONE (09:26)
[2022-05-29] MEDS ORDERED: FOLIC ACID 1 MG TABLET (FP) ONE (09:26)
[2022-05-29] MEDS ORDERED: ENOXAPARIN NA (PORCINE) 40 MG/0.4 ML DISP.SYRIN SQ ONE (09:26)
[2022-05-29] MEDS ORDERED: DONEPEZIL HCL 5 MG TABLET (FP) ONE (09:26)
[2022-05-29] MEDS ORDERED: ASCORBIC ACID 500 MG TABLET (FP) ONE (09:26)
[2022-05-29] MEDS: CARVEDILOL 12.5 MG TABLET (FP) PO SCH ×2 (09:36→21:50)
[2022-05-29] MEDS: hydrALAZINE HCL 25 MG TABLET (FP) PO SCH ×2 (09:36→21:51)
[2022-05-29] MEDS ORDERED: ASCORBIC ACID 500 MG TABLET (FP) PO SCH (10:00)
[2022-05-29] MEDS ORDERED: THIAMINE HCL 100 MG TABLET (FP) PO SCH (10:00)
[2022-05-29] MEDS ORDERED: FOLIC ACID 1 MG TABLET (FP) PO SCH (10:00)
[2022-05-29] MEDS ORDERED: PANTOPRAZOLE 40 MG TABLET PO SCH (10:00)
[2022-05-29] MEDS ORDERED: FINASTERIDE 5 MG TABLET (FP) PO SCH (10:00)
[2022-05-29] MEDS ORDERED: LOSARTAN POTASSIUM 50 MG TABLET PO SCH (10:00)
[2022-05-29] MEDS ORDERED: COLLAGENASE CLOSTRIDIUM HIST. 30 GRAMS TUBE TP SCH (10:00)
[2022-05-29] MEDS ORDERED: DONEPEZIL HCL 5 MG TABLET (FP) PO SCH (10:00)
[2022-05-29] MEDS ORDERED: ENOXAPARIN NA (PORCINE) 40 MG/0.4 ML DISP.SYRIN SQ SCH (10:00)
[2022-05-29] MEDS: DEXTROSE 5%-0.45% SALINE 1,000 ML IV SCH (19:24)
[2022-05-29] MEDS: MIRTAZAPINE 15 MG TABLET (FP) PO SCH (21:52)
[2022-05-29] MEDS: ATORVASTATIN CA 80 MG TABLET (FP) PO SCH (21:53)
[2022-05-30] MEDS: DEXTROSE 5%-0.45% SALINE 1,000 ML IV SCH (00:35)
[2022-05-30] MEDS ORDERED: PANTOPRAZOLE 40 MG TABLET PO SCH (10:00)
[2022-05-30] MEDS ORDERED: THIAMINE HCL 100 MG TABLET (FP) PO SCH (10:00)
[2022-05-30] MEDS ORDERED: ASCORBIC ACID 500 MG TABLET (FP) PO SCH (10:00)
[2022-05-30] MEDS ORDERED: FOLIC ACID 1 MG TABLET (FP) PO SCH (10:00)
[2022-05-30] MEDS: AMINO ACIDS 4.25%/D5W 1,000 ML IV SCH (14:16)
[2022-05-30] MEDS: TAMSULOSIN HCL 0.4 MG CAP PO SCH (16:14)
[2022-05-30] MEDS: FINASTERIDE 5 MG TABLET (FP) PO SCH (16:15)
[2022-05-30] MEDS: hydrALAZINE HCL 25 MG TABLET (FP) PO SCH ×2 (16:16→22:06)
[2022-05-30] MEDS: CARVEDILOL 12.5 MG TABLET (FP) PO SCH ×2 (16:16→22:06)
[2022-05-30] MEDS: COLLAGENASE CLOSTRIDIUM HIST. 30 GRAMS TUBE TP SCH (16:24)
[2022-05-30] MEDS: ENOXAPARIN NA (PORCINE) 40 MG/0.4 ML DISP.SYRIN SQ SCH (16:25)
[2022-05-30] MEDS ORDERED: DONEPEZIL HCL 5 MG TABLET (FP) PO SCH (22:00)
[2022-05-30] MEDS: MIRTAZAPINE 15 MG TABLET (FP) PO SCH (22:06)
[2022-05-30] MEDS: DONEPEZIL HCL 5 MG TABLET (FP) PO SCH (22:06)
[2022-05-30] MEDS: ATORVASTATIN CA 80 MG TABLET (FP) PO SCH (22:06)
[2022-05-31] MEDS: AMINO ACIDS 4.25%/D5W 1,000 ML IV SCH ×4 (01:03→13:13)
[2022-05-31] MEDS: ENOXAPARIN NA (PORCINE) 40 MG/0.4 ML DISP.SYRIN SQ SCH (09:24)
[2022-05-31] MEDS: TAMSULOSIN HCL 0.4 MG CAP PO SCH (09:24)
[2022-05-31] MEDS: hydrALAZINE HCL 25 MG TABLET (FP) PO SCH ×3 (09:24→21:57)
[2022-05-31] MEDS: FINASTERIDE 5 MG TABLET (FP) PO SCH (09:24)
[2022-05-31] MEDS: COLLAGENASE CLOSTRIDIUM HIST. 30 GRAMS TUBE TP SCH (09:25)
[2022-05-31] MEDS: CARVEDILOL 12.5 MG TABLET (FP) PO SCH ×3 (10:13→21:57)
[2022-05-31 11:05] LABS: BLOOD UREA NITROGEN 46.7 mg/dL (7-18); CALCIUM 8.5 mg/dL (8.5-10.1)
[2022-05-31 11:09] LABS: CREATININE 1.1 mg/dL (0.55-1.3)
[2022-05-31] MEDS: AMPICILLIN NA/SULBACTAM NA 1.5 GM in SODIUM CHLORIDE 100 ML IVPB SCH ×2 (18:40→21:19)
[2022-05-31] MEDS: ATORVASTATIN CA 80 MG TABLET (FP) PO SCH ×2 (21:20→21:57)
[2022-05-31] MEDS: DONEPEZIL HCL 5 MG TABLET (FP) PO SCH ×2 (21:20→21:57)
[2022-05-31] MEDS: MIRTAZAPINE 15 MG TABLET (FP) PO SCH ×2 (21:20→21:57)
[2022-05-31] MEDS ORDERED: ACETAMINOPHEN 1000 MG/100 ML BAG IVPB ONE (22:04)
[2022-06-01] MEDS: AMINO ACIDS 4.25%/D5W 1,000 ML IV SCH ×4 (00:52→22:00)
[2022-06-01] MEDS: AMPICILLIN NA/SULBACTAM NA 1.5 GM in SODIUM CHLORIDE 100 ML IVPB SCH ×4 (02:27→21:16)
[2022-06-01] MEDS: TAMSULOSIN HCL 0.4 MG CAP PO SCH (08:42)
[2022-06-01] MEDS: COLLAGENASE CLOSTRIDIUM HIST. 30 GRAMS TUBE TP SCH (09:06)
[2022-06-01] MEDS: CARVEDILOL 12.5 MG TABLET (FP) PO SCH ×2 (09:06→21:16)
[2022-06-01] MEDS: hydrALAZINE HCL 25 MG TABLET (FP) PO SCH ×2 (09:06→21:16)
[2022-06-01] MEDS: ENOXAPARIN NA (PORCINE) 40 MG/0.4 ML DISP.SYRIN SQ SCH (09:06)
[2022-06-01] MEDS: FINASTERIDE 5 MG TABLET (FP) PO SCH (09:06)
[2022-06-01 15:20] VITALS: RESP 18
[2022-06-01] MEDS: DONEPEZIL HCL 5 MG TABLET (FP) PO SCH (21:16)
[2022-06-01] MEDS: MIRTAZAPINE 15 MG TABLET (FP) PO SCH (21:16)
[2022-06-01] MEDS: ATORVASTATIN CA 80 MG TABLET (FP) PO SCH (21:16)
[2022-06-02] MEDS: AMPICILLIN NA/SULBACTAM NA 1.5 GM in SODIUM CHLORIDE 100 ML IVPB SCH ×3 (02:37→14:03)
[2022-06-02] MEDS: TAMSULOSIN HCL 0.4 MG CAP PO SCH (09:47)
[2022-06-02] MEDS: AMINO ACIDS 4.25%/D5W 1,000 ML IV SCH (10:08)
[2022-06-02] MEDS: FINASTERIDE 5 MG TABLET (FP) PO SCH (11:51)
[2022-06-02] MEDS: hydrALAZINE HCL 25 MG TABLET (FP) PO SCH (11:51)
[2022-06-02] MEDS: CARVEDILOL 12.5 MG TABLET (FP) PO SCH (11:51)
[2022-06-02] MEDS: ENOXAPARIN NA (PORCINE) 40 MG/0.4 ML DISP.SYRIN SQ SCH (11:51)
[2022-06-02] MEDS: COLLAGENASE CLOSTRIDIUM HIST. 30 GRAMS TUBE TP SCH (14:00)
[2022-06-02 15:29] VITALS: BP 132/71; PULSE 84; TEMP 98
== END 2022-06-02 15:52 | DRG 193 ==
LOC: JER 12:37 → JERBED 13:49 → J5S 05-29 15:34
PROVIDERS: ADMIT Internal Medicine; ATTEND Internal Medicine
DX: J18.9 Pneumonia, unspecified organism (principal); R53.2 Functional quadriplegia; U07.1 COVID-19; R47.01 Aphasia; E87.0 Hyperosmolality and hypernatremia; I69.354 Hemiplegia and hemiparesis following cerebral infarction affecting left non-dominant side; I38 Endocarditis, valve unspecified; F03.90 Unspecified dementia, unspecified severity, without behavioral disturbance, psychotic disturbance, mood disturbance, and anxiety; E86.0 Dehydration; R41.82 Altered mental status, unspecified; M10.9 Gout, unspecified; J44.9 Chronic obstructive pulmonary disease, unspecified; L89.152 Pressure ulcer of sacral region, stage 2; E87.5 Hyperkalemia; I48.91 Unspecified atrial fibrillation; I10 Essential (primary) hypertension; Z66 Do not resuscitate
CPT/HCPCS: 0241U-QW; 36415; 70450-TC; 71045-TC-FY; 74230-TC-FY; 76604; 76937; 80048; 80053; 81003; 82550; 82553; 82803; 82962; 83605; 84484; 85025; 85027; 85610; 85730; 86850; 86870; 86900; 86901; 86902; 87040; 87077; 87086; 92611-GN; 93005; 93010; 93308; 99285-25; C9803-CS; U0003; U0005

== ENCOUNTER 2022-06-22 14:54 | Inpatient (IN) | payer MEDICARE ==
[2022-06-22 20:45] LABS: BASO % 0.3 % (0-2.0); EOS % 1.3 % (0-4.5); HEMATOCRIT 26.9 % (35.4-49); HEMOGLOBIN 8.2 GM/dL (11.7-16.9); MCH 24.8 pg (25.7-33.7); MCHC 30.6 g/dl (32.0-35.9); MEAN CELL VOLUME 81.1 fl (80-96); MEAN PLT VOLUME 8.5 fl (7.5-11.1); MONO % 5.8 % (3.8-10.2); NEUT % 77.6 % (42.8-82.8); PLATELET COUNT 246 10^3/uL (134-434); RBC 3.32 M/mm3 (4.00-5.60); WHITE BLOOD COUNT 7.6 K/mm3 (4.0-10.0)
[2022-06-22 20:52] LABS: INR 1.24 (0.83-1.09); PROTHROMBIN TIME (PATIENT) 14.3 SEC (9.7-13.0)
[2022-06-22 20:54] LABS: ACTIVATED PTT 28.8 SECONDS (25.2-36.5)
[2022-06-22 21:03] LABS: ALBUMIN 1.6 g/dl (3.4-5.0); CALCIUM 8.3 mg/dL (8.5-10.1)
[2022-06-22 21:06] LABS: CREATININE 0.9 mg/dL (0.55-1.3)
[2022-06-22 21:08] LABS: BILIRUBIN,TOTAL 0.3 mg/dL (0.2-1); TOT PROT 6.2 g/dl (6.4-8.2)
[2022-06-22 21:14] LABS: ANISOCYTOSIS 3+; MACROCYTOSIS 0; OVALOCYTE 1+; TEAR DROP CELLS 1+
[2022-06-22] MEDS ORDERED: PIPERACILLIN/TAZOB 4.5 GM 4.5 GM in DEXTROSE 5%-WATER 100 ML IVPB ONE (22:24)
[2022-06-22] MEDS ORDERED: VANCOMYCIN 1 GM in D5W (PRE-DOCKED) 1,000 MG/250 ML IVPB ONE (22:24)
[2022-06-22] MEDS ORDERED: SODIUM CHLORIDE 0.9% 500 ML INFUS.BAG IV ONE (22:25)
[2022-06-22] MEDS ORDERED: VANCOMYCIN/WATER FOR INJ (PEG) 1,000 MG/200 ML BAG IVPB ONE (22:28)
[2022-06-22] MEDS ORDERED: SODIUM CHLORIDE 0.45% 1,000 ML IV SCH (22:30)
[2022-06-22 22:50] LABS: EPI CELLS 3 /uL (0-25.1); HYALINE CASTS 13 /uL (0-3.1); PH,URINE 5.5 (5.0-8.0); URINE APPEARANCE CLOUDY; URINE BILIRUBIN NEGATIVE (NEGATIVE); URINE COLOR YELLOW; URINE GLUCOSE (UA) NEGATIVE (NEGATIVE); URINE KETONE NEGATIVE (NEGATIVE); URINE LEUK ESTERASE 2+ (NEGATIVE); URINE NITRITE POSITIVE (NEGATIVE); URINE PROTEIN 1+ (NEGATIVE); URINE UROBILINOGEN 0.2 mg/dL (0.2-1.0); URINE WBC 576 /uL (0-25.8)
[2022-06-22 22:58] LABS: URINE BACTERIA 1064 /uL (0-1359); URINE RBC 59 /uL (0-23.9)
[2022-06-22 23:01] LABS: YEAST PRESENT (NEGATIVE)
[2022-06-22] MEDS ORDERED: PIPERACILLIN/TAZOB 4.5 GM 4.5 GM/100 ML BAG IVPB ONE (23:12)
[2022-06-23 08:58] LABS: BASO % 0.2 % (0-2.0); EOS % 1.1 % (0-4.5); HEMATOCRIT 28.7 % (35.4-49); HEMOGLOBIN 8.8 GM/dL (11.7-16.9); LYMPH % 11.8 % (8-40); MCH 24.6 pg (25.7-33.7); MCHC 30.8 g/dl (32.0-35.9); MEAN CELL VOLUME 79.8 fl (80-96); MEAN PLT VOLUME 8.4 fl (7.5-11.1); MONO % 4.6 % (3.8-10.2); NEUT % 82.3 % (42.8-82.8); PLATELET COUNT 310 10^3/uL (134-434); RBC 3.59 M/mm3 (4.00-5.60); RDW 20.9 % (11.9-15.9); WHITE BLOOD COUNT 8.9 K/mm3 (4.0-10.0)
[2022-06-23] MEDS ORDERED: ALBUTEROL SO4 HFA INHALER IH PRN (09:27)
[2022-06-23 09:28] LABS: ALBUMIN 1.4 g/dl (3.4-5.0); CALCIUM 8.2 mg/dL (8.5-10.1)
[2022-06-23 09:31] LABS: CREATININE 0.8 mg/dL (0.55-1.3)
[2022-06-23 09:33] LABS: TOT PROT 5.7 g/dl (6.4-8.2)
[2022-06-23 09:34] LABS: BILIRUBIN,TOTAL 0.3 mg/dL (0.2-1)
[2022-06-23] MEDS ORDERED: CARVEDILOL 12.5 MG TABLET (FP) ONE (09:40)
[2022-06-23] MEDS ORDERED: PANTOPRAZOLE 40 MG TABLET PO ONE (09:40)
[2022-06-23] MEDS ORDERED: ASCORBIC ACID 500 MG TABLET (FP) ONE (09:41)
[2022-06-23] MEDS ORDERED: PIPERACILLIN/TAZOB 4.5 GM 4.5 GM/100 ML BAG IVPB ONE (09:41)
[2022-06-23] MEDS ORDERED: PIPERACILLIN/TAZOB 4.5 GM 4.5 GM in DEXTROSE 5%-WATER 100 ML IVPB SCH (09:45)
[2022-06-23] MEDS ORDERED: CEFTRIAXONE 1 GM in DEXTROSE 5%-WATER - 50 ML IVPB SCH (10:00)
[2022-06-23] MEDS: CARVEDILOL 12.5 MG TABLET (FP) PO SCH ×2 (10:11→22:05)
[2022-06-23] MEDS: PANTOPRAZOLE 40 MG TABLET PO SCH (10:11)
[2022-06-23] MEDS: ASCORBIC ACID 500 MG TABLET (FP) PO SCH (10:11)
[2022-06-23 11:24] LABS: MAGNESIUM 2.2 mg/dL (1.8-2.4)
[2022-06-23] MEDS: DEXTROSE 5%-WATER - 1,000 ML with POTASSIUM CHLORIDE 20 MEQ IV SCH (18:00)
[2022-06-23] MEDS ORDERED: VANCOMYCIN/WATER FOR INJ (PEG) 1,000 MG/200 ML BAG IVPB SCH ×2 (22:00)
[2022-06-23] MEDS: ATORVASTATIN CA 80 MG TABLET (FP) PO SCH (22:05)
[2022-06-23] MEDS: DONEPEZIL HCL 5 MG TABLET (FP) PO SCH (22:05)
[2022-06-24] MEDS ORDERED: PIPERACILLIN/TAZOB 4.5 GM 4.5 GM in DEXTROSE 5%-WATER 100 ML IVPB SCH (03:00)
[2022-06-24] MEDS: ASCORBIC ACID 500 MG TABLET (FP) PO SCH (09:46)
[2022-06-24] MEDS: CARVEDILOL 12.5 MG TABLET (FP) PO SCH ×2 (09:47→22:33)
[2022-06-24] MEDS: PANTOPRAZOLE 40 MG TABLET PO SCH (09:47)
[2022-06-24] MEDS: DEXTROSE 5%-WATER - 1,000 ML with POTASSIUM CHLORIDE 20 MEQ IV SCH ×2 (11:58→22:35)
[2022-06-24 12:15] LABS: BASO % 0.4 % (0-2.0); EOS % 1.1 % (0-4.5); HEMATOCRIT 27.8 % (35.4-49); HEMOGLOBIN 8.4 GM/dL (11.7-16.9); LYMPH % 18.5 % (8-40); MCH 24.3 pg (25.7-33.7); MCHC 30.3 g/dl (32.0-35.9); MEAN CELL VOLUME 80.2 fl (80-96); MEAN PLT VOLUME 8.3 fl (7.5-11.1); MONO % 4.8 % (3.8-10.2); NEUT % 75.2 % (42.8-82.8); PLATELET COUNT 323 10^3/uL (134-434); RBC 3.47 M/mm3 (4.00-5.60); RDW 20.3 % (11.9-15.9); WHITE BLOOD COUNT 7.6 K/mm3 (4.0-10.0)
[2022-06-24 12:37] LABS: ALBUMIN 1.5 g/dl (3.4-5.0); BLOOD UREA NITROGEN 24.8 mg/dL (7-18); CALCIUM 8.3 mg/dL (8.5-10.1)
[2022-06-24 12:39] LABS: CREATININE 0.8 mg/dL (0.55-1.3)
[2022-06-24 12:42] LABS: TOT PROT 5.8 g/dl (6.4-8.2)
[2022-06-24 12:50] LABS: BILIRUBIN,TOTAL 0.4 mg/dL (0.2-1)
[2022-06-24 14:43] VITALS: BMI 18.0
[2022-06-24] MEDS: DONEPEZIL HCL 5 MG TABLET (FP) PO SCH (22:34)
[2022-06-24] MEDS: ATORVASTATIN CA 80 MG TABLET (FP) PO SCH (22:34)
[2022-06-25] MEDS: MULTIVIT-MINERALS ORAL LIQUID PO SCH (09:34)
[2022-06-25] MEDS: CARVEDILOL 12.5 MG TABLET (FP) PO SCH ×2 (09:34→22:23)
[2022-06-25] MEDS: PANTOPRAZOLE 40 MG TABLET PO SCH (09:34)
[2022-06-25] MEDS: ASCORBIC ACID 500 MG TABLET (FP) PO SCH (09:34)
[2022-06-25 10:19] LABS: BASO % 0.5 % (0-2.0); EOS % 1.9 % (0-4.5); HEMATOCRIT 27.5 % (35.4-49); HEMOGLOBIN 8.4 GM/dL (11.7-16.9); LYMPH % 21.8 % (8-40); MCH 24.5 pg (25.7-33.7); MCHC 30.4 g/dl (32.0-35.9); MEAN CELL VOLUME 80.6 fl (80-96); MEAN PLT VOLUME 8.5 fl (7.5-11.1); MONO % 6.3 % (3.8-10.2); NEUT % 69.5 % (42.8-82.8); PLATELET COUNT 239 10^3/uL (134-434); RBC 3.41 M/mm3 (4.00-5.60); RDW 20.2 % (11.9-15.9); WHITE BLOOD COUNT 6.5 K/mm3 (4.0-10.0)
[2022-06-25 10:41] LABS: CALCIUM 8.6 mg/dL (8.5-10.1)
[2022-06-25 10:42] LABS: ALBUMIN 1.4 g/dl (3.4-5.0)
[2022-06-25 10:44] LABS: CREATININE 0.8 mg/dL (0.55-1.3)
[2022-06-25 10:46] LABS: BILIRUBIN,TOTAL 0.4 mg/dL (0.2-1); TOT PROT 5.5 g/dl (6.4-8.2)
[2022-06-25] MEDS: DEXTROSE 5%-WATER - 1,000 ML with POTASSIUM CHLORIDE 20 MEQ IV SCH ×3 (10:48→17:35)
[2022-06-25] MEDS: ZINC SULFATE 220 MG CAPSULE (FP) PO SCH (10:48)
[2022-06-25] MEDS: DONEPEZIL HCL 5 MG TABLET (FP) PO SCH (22:23)
[2022-06-25] MEDS: ATORVASTATIN CA 80 MG TABLET (FP) PO SCH (22:23)
[2022-06-26] MEDS: MULTIVIT-MINERALS ORAL LIQUID PO SCH (09:31)
[2022-06-26] MEDS: PANTOPRAZOLE 40 MG TABLET PO SCH (09:31)
[2022-06-26] MEDS: CARVEDILOL 12.5 MG TABLET (FP) PO SCH ×2 (09:31→21:48)
[2022-06-26] MEDS: ASCORBIC ACID 500 MG TABLET (FP) PO SCH (09:31)
[2022-06-26] MEDS: ZINC SULFATE 220 MG CAPSULE (FP) PO SCH (09:32)
[2022-06-26] MEDS: DEXTROSE 5%-WATER - 1,000 ML with POTASSIUM CHLORIDE 20 MEQ IV SCH ×3 (10:13→22:15)
[2022-06-26 10:28] LABS: CALCIUM 7.9 mg/dL (8.5-10.1)
[2022-06-26 10:29] LABS: ALBUMIN 1.4 g/dl (3.4-5.0)
[2022-06-26 10:32] LABS: CREATININE 0.7 mg/dL (0.55-1.3)
[2022-06-26 10:33] LABS: TOT PROT 5.3 g/dl (6.4-8.2)
[2022-06-26 10:35] LABS: BILIRUBIN,TOTAL 0.2 mg/dL (0.2-1)
[2022-06-26] MEDS: ATORVASTATIN CA 80 MG TABLET (FP) PO SCH (21:48)
[2022-06-26] MEDS: DONEPEZIL HCL 5 MG TABLET (FP) PO SCH (21:49)
[2022-06-27] MEDS: DEXTROSE 5%-WATER - 1,000 ML with POTASSIUM CHLORIDE 20 MEQ IV SCH (11:14)
[2022-06-27] MEDS: ZINC SULFATE 220 MG CAPSULE (FP) PO SCH (11:15)
[2022-06-27] MEDS: CARVEDILOL 12.5 MG TABLET (FP) PO SCH (11:15)
[2022-06-27] MEDS: PANTOPRAZOLE 40 MG TABLET PO SCH (11:15)
[2022-06-27] MEDS: ASCORBIC ACID 500 MG TABLET (FP) PO SCH (11:15)
[2022-06-27 11:19] LABS: CALCIUM 7.4 mg/dL (8.5-10.1)
[2022-06-27 11:20] LABS: ALBUMIN 1.4 g/dl (3.4-5.0); BLOOD UREA NITROGEN 16.6 mg/dL (7-18)
[2022-06-27 11:23] LABS: CREATININE 0.8 mg/dL (0.55-1.3)
[2022-06-27 11:24] LABS: BILIRUBIN,TOTAL 0.4 mg/dL (0.2-1); TOT PROT 5.5 g/dl (6.4-8.2)
[2022-06-27] MEDS ORDERED: POTASSIUM CHLORIDE 20 MEQ in DEXTROSE 5%-WATER - 1,000 ML IVPB SCH (12:15)
[2022-06-27] MEDS: MULTIVIT-MINERALS ORAL LIQUID PO SCH (14:02)
[2022-06-27 18:55] VITALS: BP 128/66; PULSE 86; RESP 20; TEMP 98.2
== END 2022-06-27 19:34 | DRG 640 ==
LOC: JER 14:54 → JERBED 22:30 → J5S 06-23 10:20 → J8W 06-27 00:39
PROVIDERS: ADMIT Internal Medicine; ATTEND Internal Medicine
DX: E87.0 Hyperosmolality and hypernatremia (principal); J18.9 Pneumonia, unspecified organism; U07.1 COVID-19; L89.154 Pressure ulcer of sacral region, stage 4; G81.94 Hemiplegia, unspecified affecting left nondominant side; E44.0 Moderate protein-calorie malnutrition; Z68.1 Body mass index [BMI] 19.9 or less, adult; R64 Cachexia; R47.01 Aphasia; I48.91 Unspecified atrial fibrillation; F03.90 Unspecified dementia, unspecified severity, without behavioral disturbance, psychotic disturbance, mood disturbance, and anxiety; I10 Essential (primary) hypertension; N40.0 Benign prostatic hyperplasia without lower urinary tract symptoms; J44.9 Chronic obstructive pulmonary disease, unspecified; E78.5 Hyperlipidemia, unspecified; M10.9 Gout, unspecified; B96.1 Klebsiella pneumoniae [K. pneumoniae] as the cause of diseases classified elsewhere; B96.20 Unspecified Escherichia coli [E. coli] as the cause of diseases classified elsewhere; B95.62 Methicillin resistant Staphylococcus aureus infection as the cause of diseases classified elsewhere; Z74.01 Bed confinement status; Z66 Do not resuscitate
CPT/HCPCS: 0241U-QW; 36415; 71045-TC-FY; 71250-TC; 80053; 81003; 82728; 83615; 83735; 84484; 85025; 85610; 85730; 86140; 87070; 87086; 87186; 87205; 93005; 93010; 99285-25

== ENCOUNTER 2022-07-28 21:28 | Inpatient (IN) | payer OTHER, MEDICARE ==
[2022-07-28] MEDS ORDERED: LACTATED RINGERS SOLUTION 1000 ML INFUS.BAG IV ONE (22:00)
[2022-07-28 22:28] LABS: VENOUS BASE EXCESS -1.1 mmol/L (-2-2); VENOUS O2 SATURATION 45.8 % (70-80); VENOUS PCO2 39.3 mmHg (38-52); VENOUS PH 7.397 (7.310-7.410)
[2022-07-28 22:32] LABS: BASO % 0.3 % (0-2.0); EOS % 0.3 % (0-4.5); HEMATOCRIT 20.4 % (35.4-49); LYMPH % 8.9 % (8-40); MCH 24.1 pg (25.7-33.7); MCHC 30.8 g/dl (32.0-35.9); MEAN CELL VOLUME 78.3 fl (80-96); MONO % 3.2 % (3.8-10.2); NEUT % 87.3 % (42.8-82.8); PLATELET COUNT 280 10^3/uL (134-434); RDW 20.4 % (11.9-15.9); WHITE BLOOD COUNT 11.2 K/mm3 (4.0-10.0)
[2022-07-28 22:34] LABS: HEMOGLOBIN 6.3 GM/dL (11.7-16.9)
[2022-07-28 22:40] LABS: INR 1.35 (0.83-1.09); PROTHROMBIN TIME (PATIENT) 15.6 SEC (9.7-13.0)
[2022-07-28 22:42] LABS: ACTIVATED PTT 27.3 SECONDS (25.2-36.5)
[2022-07-28] MEDS ORDERED: MEROPENEM 1 GM in DEXTROSE 5%-WATER 100 ML IVPB ONE (22:53)
[2022-07-28 22:54] LABS: CALCIUM 7.9 mg/dL (8.5-10.1)
[2022-07-28 22:55] LABS: ALBUMIN 1.5 g/dl (3.4-5.0); BLOOD UREA NITROGEN 60.1 mg/dL (7-18); MAGNESIUM 2.3 mg/dL (1.8-2.4)
[2022-07-28] MEDS ORDERED: MEROPENEM 1 GM VIAL (RESTRICTED TO ID) IVPB ONE (22:56)
[2022-07-28 22:58] LABS: CREATININE 2.3 mg/dL (0.55-1.3); PHOSPHOROUS 3.7 mg/dL (2.5-4.9)
[2022-07-28 22:59] LABS: BILIRUBIN,TOTAL 0.4 mg/dL (0.2-1)
[2022-07-28 23:00] LABS: TOT PROT 6.8 g/dl (6.4-8.2)
[2022-07-28 23:03] LABS: LACTIC ACID 2.1 mmol/L (0.4-2.0); N-TERMINAL BNP 6088.9 pg/ml (5-125)
[2022-07-28 23:06] LABS: EPI CELLS 4 /uL (0-25.1); HYALINE CASTS 1 /uL (0-3.1); PH,URINE 6.5 (5.0-8.0); URINE APPEARANCE TURBID; URINE BACTERIA >9,000 /uL (0-1359); URINE BILIRUBIN NEGATIVE (NEGATIVE); URINE COLOR YELLOW; URINE GLUCOSE (UA) NEGATIVE (NEGATIVE); URINE KETONE NEGATIVE (NEGATIVE); URINE LEUK ESTERASE 3+ (NEGATIVE); URINE NITRITE NEGATIVE (NEGATIVE); URINE PROTEIN 1+ (NEGATIVE); URINE RBC 73 /uL (0-23.9); URINE UROBILINOGEN 0.2 mg/dL (0.2-1.0); URINE WBC 3160 /uL (0-25.8)
[2022-07-28] MEDS ORDERED: SODIUM CHLORIDE 0.45% 1,000 ML IV SCH (23:30)
[2022-07-29 01:53] LABS: CALCIUM 7.5 mg/dL (8.5-10.1)
[2022-07-29 01:54] LABS: BLOOD UREA NITROGEN 54.6 mg/dL (7-18)
[2022-07-29] MEDS: SODIUM CHLORIDE 0.45% 1,000 ML IV SCH ×2 (12:04→23:15)
[2022-07-29] MEDS ORDERED: ACETAMINOPHEN INJECTION 100 ML IVPB ONE (12:06)
[2022-07-29] MEDS ORDERED: FUROSEMIDE 40 MG/4 ML INJECTABLE VIAL IVPUSH ONE (12:15)
[2022-07-29 12:51] LABS: BASO % 0.3 % (0-2.0); EOS % 0.3 % (0-4.5); HEMATOCRIT 31.3 % (35.4-49); HEMOGLOBIN 9.7 GM/dL (11.7-16.9); LYMPH % 6.5 % (8-40); MCH 24.9 pg (25.7-33.7); MEAN CELL VOLUME 80.3 fl (80-96); MEAN PLT VOLUME 7.1 fl (7.5-11.1); MONO % 2.9 % (3.8-10.2); PLATELET COUNT 350 10^3/uL (134-434); RDW 19.2 % (11.9-15.9)
[2022-07-29 13:23] LABS: ALBUMIN 1.4 g/dl (3.4-5.0); BLOOD UREA NITROGEN 55.3 mg/dL (7-18); CALCIUM 8.1 mg/dL (8.5-10.1)
[2022-07-29 13:26] LABS: CREATININE 1.8 mg/dL (0.55-1.3)
[2022-07-29 13:28] LABS: BILIRUBIN,TOTAL 0.4 mg/dL (0.2-1); TOT PROT 6.6 g/dl (6.4-8.2)
[2022-07-29] MEDS: ACETAMINOPHEN 1000 MG/100 ML BAG IVPB PRN (13:39)
[2022-07-29] MEDS: PIPERACILLIN/TAZOB 2.25 GM 2.25 GM in DEXTROSE 5%-WATER - 50 ML IVPB SCH (23:13)
[2022-07-30] MEDS: PIPERACILLIN/TAZOB 2.25 GM 2.25 GM in DEXTROSE 5%-WATER - 50 ML IVPB SCH ×2 (06:10→14:37)
[2022-07-30] MEDS: SODIUM CHLORIDE 0.45% 1,000 ML IV SCH (10:32)
[2022-07-30 13:20] LABS: BASO % 0.1 % (0-2.0); EOS % 1.5 % (0-4.5); HEMATOCRIT 25.7 % (35.4-49); HEMOGLOBIN 8.1 GM/dL (11.7-16.9); LYMPH % 8.5 % (8-40); MCH 25.5 pg (25.7-33.7); MCHC 31.5 g/dl (32.0-35.9); MEAN CELL VOLUME 80.9 fl (80-96); MEAN PLT VOLUME 7.4 fl (7.5-11.1); MONO % 3.1 % (3.8-10.2); NEUT % 86.8 % (42.8-82.8); PLATELET COUNT 272 10^3/uL (134-434); RBC 3.18 M/mm3 (4.00-5.60); RDW 19.2 % (11.9-15.9)
[2022-07-30 13:35] LABS: ALBUMIN 1.2 g/dl (3.4-5.0); BLOOD UREA NITROGEN 56.9 mg/dL (7-18)
[2022-07-30 13:38] LABS: CREATININE 1.8 mg/dL (0.55-1.3)
[2022-07-30 13:40] LABS: BILIRUBIN,TOTAL 0.4 mg/dL (0.2-1); TOT PROT 5.6 g/dl (6.4-8.2)
[2022-07-30 13:58] VITALS: BMI 20.3
[2022-07-30] MEDS: ACETAMINOPHEN 1000 MG/100 ML BAG IVPB PRN (14:00)
[2022-07-30] MEDS: COLLAGENASE CLOSTRIDIUM HIST. 30 GRAMS TUBE TP SCH (15:09)
[2022-07-30] MEDS: POTASSIUM CHLORIDE 20 MEQ in DEXTROSE 5%-WATER - 1,000 ML IV SCH (17:22)
[2022-07-31] MEDS: POTASSIUM CHLORIDE 20 MEQ in DEXTROSE 5%-WATER - 1,000 ML IV SCH ×4 (02:10→15:06)
[2022-07-31] MEDS: COLLAGENASE CLOSTRIDIUM HIST. 30 GRAMS TUBE TP SCH (10:53)
[2022-07-31] MEDS: ERTAPENEM SODIUM 1 GM in SODIUM CHLORIDE 50 ML IVPB SCH (14:05)
[2022-07-31] MEDS: PIPERACILLIN/TAZOB 2.25 GM 2.25 GM in DEXTROSE 5%-WATER - 50 ML IVPB SCH ×2 (15:04→15:05)
[2022-07-31] MEDS ORDERED: ACETAMINOPHEN 1000 MG/100 ML BAG IVPB PRN (16:53)
[2022-08-01] MEDS: POTASSIUM CHLORIDE 20 MEQ in DEXTROSE 5%-WATER - 1,000 ML IV SCH ×2 (02:09→16:21)
[2022-08-01 08:33] LABS: BASO % 0.2 % (0-2.0); EOS % 2.5 % (0-4.5); HEMATOCRIT 25.9 % (35.4-49); LYMPH % 7.9 % (8-40); MCH 25.1 pg (25.7-33.7); MCHC 30.9 g/dl (32.0-35.9); MEAN CELL VOLUME 81.1 fl (80-96); MEAN PLT VOLUME 7.5 fl (7.5-11.1); MONO % 2.6 % (3.8-10.2); NEUT % 86.8 % (42.8-82.8); PLATELET COUNT 271 10^3/uL (134-434); RBC 3.19 M/mm3 (4.00-5.60); RDW 19.6 % (11.9-15.9); WHITE BLOOD COUNT 13.2 K/mm3 (4.0-10.0)
[2022-08-01 08:49] LABS: CALCIUM 7.8 mg/dL (8.5-10.1)
[2022-08-01 08:50] LABS: ALBUMIN 1.2 g/dl (3.4-5.0); BLOOD UREA NITROGEN 48.6 mg/dL (7-18)
[2022-08-01 08:53] LABS: CREATININE 1.2 mg/dL (0.55-1.3)
[2022-08-01 08:54] LABS: BILIRUBIN,TOTAL 0.8 mg/dL (0.2-1); TOT PROT 5.6 g/dl (6.4-8.2)
[2022-08-01] MEDS: ERTAPENEM SODIUM 1 GM in SODIUM CHLORIDE 50 ML IVPB SCH (10:14)
[2022-08-01] MEDS: COLLAGENASE CLOSTRIDIUM HIST. 30 GRAMS TUBE TP SCH (14:59)
[2022-08-01] MEDS: POTASSIUM CHLORIDE 10 MEQ in DEXTROSE 5%-WATER - 1,000 ML IV SCH (17:26)
[2022-08-01] MEDS: CARVEDILOL 12.5 MG TABLET (FP) PO SCH (22:08)
[2022-08-01] MEDS: ATORVASTATIN CA 80 MG TABLET (FP) PO SCH (22:08)
[2022-08-01] MEDS: MIRTAZAPINE 15 MG TABLET (FP) PO SCH (22:08)
[2022-08-02] MEDS: POTASSIUM CHLORIDE 10 MEQ in DEXTROSE 5%-WATER - 1,000 ML IV SCH ×3 (05:29→22:02)
[2022-08-02 09:38] LABS: HEMATOCRIT 22.7 % (35.4-49); HEMOGLOBIN 7.1 GM/dL (11.7-16.9); MCH 25.2 pg (25.7-33.7); MCHC 31.3 g/dl (32.0-35.9); MEAN CELL VOLUME 80.8 fl (80-96); MEAN PLT VOLUME 7.3 fl (7.5-11.1); PLATELET COUNT 212 10^3/uL (134-434); RBC 2.81 M/mm3 (4.00-5.60); RDW 19.5 % (11.9-15.9); WHITE BLOOD COUNT 9.1 K/mm3 (4.0-10.0)
[2022-08-02 10:21] LABS: CALCIUM 7.6 mg/dL (8.5-10.1)
[2022-08-02 10:22] LABS: BLOOD UREA NITROGEN 32.7 mg/dL (7-18)
[2022-08-02 10:25] LABS: CREATININE 0.8 mg/dL (0.55-1.3)
[2022-08-02] MEDS: ERTAPENEM SODIUM 1 GM in SODIUM CHLORIDE 50 ML IVPB SCH (10:31)
[2022-08-02] MEDS: ASCORBIC ACID 500 MG TABLET (FP) PO SCH (11:38)
[2022-08-02] MEDS: PANTOPRAZOLE 40 MG TABLET PO SCH (11:38)
[2022-08-02] MEDS: ZINC SULFATE 220 MG CAPSULE (FP) PO SCH (11:38)
[2022-08-02] MEDS: MULTIVIT-MINERALS ORAL LIQUID PO SCH (11:38)
[2022-08-02] MEDS: CARVEDILOL 12.5 MG TABLET (FP) PO SCH ×2 (11:38→22:03)
[2022-08-02] MEDS: DONEPEZIL HCL 5 MG TABLET (FP) PO SCH (11:38)
[2022-08-02] MEDS: COLLAGENASE CLOSTRIDIUM HIST. 30 GRAMS TUBE TP SCH (11:39)
[2022-08-02] MEDS: MIRTAZAPINE 15 MG TABLET (FP) PO SCH (22:02)
[2022-08-02] MEDS: ATORVASTATIN CA 80 MG TABLET (FP) PO SCH (22:03)
[2022-08-03 09:42] LABS: ALBUMIN 1.1 g/dl (3.4-5.0); CALCIUM 7.4 mg/dL (8.5-10.1)
[2022-08-03 09:45] LABS: CREATININE 0.7 mg/dL (0.55-1.3)
[2022-08-03 09:47] LABS: BILIRUBIN,TOTAL 0.3 mg/dL (0.2-1); TOT PROT 5.2 g/dl (6.4-8.2)
[2022-08-03 09:49] LABS: BASO % 0.1 % (0-2.0); BLOOD UREA NITROGEN 22.6 mg/dL (7-18); EOS % 2.2 % (0-4.5); HEMATOCRIT 26.9 % (35.4-49); HEMOGLOBIN 8.5 GM/dL (11.7-16.9); LYMPH % 12.1 % (8-40); MCH 25.5 pg (25.7-33.7); MCHC 31.7 g/dl (32.0-35.9); MEAN CELL VOLUME 80.4 fl (80-96); MEAN PLT VOLUME 7.2 fl (7.5-11.1); MONO % 3.3 % (3.8-10.2); NEUT % 82.3 % (42.8-82.8); PLATELET COUNT 192 10^3/uL (134-434); RBC 3.35 M/mm3 (4.00-5.60); RDW 18.7 % (11.9-15.9); WHITE BLOOD COUNT 7.1 K/mm3 (4.0-10.0)
[2022-08-03] MEDS: POTASSIUM CHLORIDE 10 MEQ in DEXTROSE 5%-WATER - 1,000 ML IV SCH ×2 (11:50→23:39)
[2022-08-03] MEDS: DONEPEZIL HCL 5 MG TABLET (FP) PO SCH (11:52)
[2022-08-03] MEDS: CARVEDILOL 12.5 MG TABLET (FP) PO SCH ×2 (11:52→23:40)
[2022-08-03] MEDS: PANTOPRAZOLE 40 MG TABLET PO SCH (11:52)
[2022-08-03] MEDS: ZINC SULFATE 220 MG CAPSULE (FP) PO SCH (11:52)
[2022-08-03] MEDS: ERTAPENEM SODIUM 1 GM in SODIUM CHLORIDE 50 ML IVPB SCH (11:53)
[2022-08-03] MEDS: ASCORBIC ACID 500 MG TABLET (FP) PO SCH (11:53)
[2022-08-03] MEDS ORDERED: TAMSULOSIN HCL 0.4 MG CAP PO ONE (13:32)
[2022-08-03] MEDS ORDERED: IRON SUCROSE INJECTION 300 MG in SODIUM CHLORIDE 235 ML IVPB ONE (14:00)
[2022-08-03] MEDS: MULTIVIT-MINERALS ORAL LIQUID PO SCH (15:12)
[2022-08-03] MEDS: COLLAGENASE CLOSTRIDIUM HIST. 30 GRAMS TUBE TP SCH (19:01)
[2022-08-03] MEDS: MIRTAZAPINE 15 MG TABLET (FP) PO SCH (23:40)
[2022-08-03] MEDS: ATORVASTATIN CA 80 MG TABLET (FP) PO SCH (23:40)
[2022-08-04] MEDS: POTASSIUM CHLORIDE 10 MEQ in DEXTROSE 5%-WATER - 1,000 ML IV SCH ×2 (05:18→16:02)
[2022-08-04] MEDS: TAMSULOSIN HCL 0.4 MG CAP PO SCH (08:53)
[2022-08-04] MEDS: ERTAPENEM SODIUM 1 GM in SODIUM CHLORIDE 50 ML IVPB SCH (09:27)
[2022-08-04] MEDS: ZINC SULFATE 220 MG CAPSULE (FP) PO SCH (09:28)
[2022-08-04] MEDS: PANTOPRAZOLE 40 MG TABLET PO SCH (09:28)
[2022-08-04] MEDS: MULTIVIT-MINERALS ORAL LIQUID PO SCH (09:28)
[2022-08-04] MEDS: DONEPEZIL HCL 5 MG TABLET (FP) PO SCH (09:28)
[2022-08-04] MEDS: CARVEDILOL 12.5 MG TABLET (FP) PO SCH ×2 (09:28→23:37)
[2022-08-04] MEDS: ASCORBIC ACID 500 MG TABLET (FP) PO SCH (09:28)
[2022-08-04 10:33] LABS: CALCIUM 7.2 mg/dL (8.5-10.1)
[2022-08-04 10:34] LABS: ALBUMIN 1.1 g/dl (3.4-5.0); BLOOD UREA NITROGEN 21.2 mg/dL (7-18)
[2022-08-04 10:37] LABS: CREATININE 0.8 mg/dL (0.55-1.3)
[2022-08-04 10:38] LABS: BILIRUBIN,TOTAL 0.4 mg/dL (0.2-1); TOT PROT 5.2 g/dl (6.4-8.2)
[2022-08-04] MEDS: COLLAGENASE CLOSTRIDIUM HIST. 30 GRAMS TUBE TP SCH (14:05)
[2022-08-04] MEDS: MIRTAZAPINE 15 MG TABLET (FP) PO SCH (23:36)
[2022-08-04] MEDS: ATORVASTATIN CA 80 MG TABLET (FP) PO SCH (23:36)
[2022-08-05] MEDS: POTASSIUM CHLORIDE 10 MEQ in DEXTROSE 5%-WATER - 1,000 ML IV SCH ×4 (02:58→22:52)
[2022-08-05] MEDS: COLLAGENASE CLOSTRIDIUM HIST. 30 GRAMS TUBE TP SCH (09:31)
[2022-08-05] MEDS: ERTAPENEM SODIUM 1 GM in SODIUM CHLORIDE 50 ML IVPB SCH (09:31)
[2022-08-05] MEDS: CARVEDILOL 12.5 MG TABLET (FP) PO SCH ×2 (09:32→22:32)
[2022-08-05] MEDS: MULTIVIT-MINERALS ORAL LIQUID PO SCH (09:32)
[2022-08-05] MEDS: ASCORBIC ACID 500 MG TABLET (FP) PO SCH (09:32)
[2022-08-05] MEDS: TAMSULOSIN HCL 0.4 MG CAP PO SCH (09:32)
[2022-08-05] MEDS: DONEPEZIL HCL 5 MG TABLET (FP) PO SCH (09:33)
[2022-08-05] MEDS: PANTOPRAZOLE 40 MG TABLET PO SCH (09:33)
[2022-08-05] MEDS: ZINC SULFATE 220 MG CAPSULE (FP) PO SCH (09:33)
[2022-08-05] MEDS: MIRTAZAPINE 15 MG TABLET (FP) PO SCH (22:33)
[2022-08-05] MEDS: ATORVASTATIN CA 80 MG TABLET (FP) PO SCH (22:33)
[2022-08-06] MEDS: POTASSIUM CHLORIDE 10 MEQ in DEXTROSE 5%-WATER - 1,000 ML IV SCH ×2 (05:37→06:24)
[2022-08-06] MEDS: COLLAGENASE CLOSTRIDIUM HIST. 30 GRAMS TUBE TP SCH (10:01)
[2022-08-06] MEDS: TAMSULOSIN HCL 0.4 MG CAP PO SCH ×2 (10:30→10:36)
[2022-08-06] MEDS: DONEPEZIL HCL 5 MG TABLET (FP) PO SCH (10:30)
[2022-08-06] MEDS: MULTIVIT-MINERALS ORAL LIQUID PO SCH (10:30)
[2022-08-06] MEDS: ASCORBIC ACID 500 MG TABLET (FP) PO SCH (10:30)
[2022-08-06] MEDS: CARVEDILOL 12.5 MG TABLET (FP) PO SCH ×2 (10:30→21:56)
[2022-08-06] MEDS: ZINC SULFATE 220 MG CAPSULE (FP) PO SCH (10:30)
[2022-08-06] MEDS: PANTOPRAZOLE 40 MG TABLET PO SCH (10:30)
[2022-08-06] MEDS ORDERED: FINASTERIDE 5 MG TABLET (FP) PO ONE (12:45)
[2022-08-06] MEDS: AMINO ACIDS/PROTEIN HYDROLYS 30 ML LIQUID.PKT PO SCH (17:55)
[2022-08-06] MEDS: MIRTAZAPINE 15 MG TABLET (FP) PO SCH (21:56)
[2022-08-06] MEDS: ATORVASTATIN CA 80 MG TABLET (FP) PO SCH (21:57)
[2022-08-07 09:04] LABS: BASO % 0.6 % (0-2.0); EOS % 3.1 % (0-4.5); HEMATOCRIT 25.3 % (35.4-49); HEMOGLOBIN 8.2 GM/dL (11.7-16.9); LYMPH % 19.8 % (8-40); MCH 25.8 pg (25.7-33.7); MCHC 32.2 g/dl (32.0-35.9); MEAN CELL VOLUME 80.1 fl (80-96); MEAN PLT VOLUME 7.5 fl (7.5-11.1); MONO % 6.6 % (3.8-10.2); NEUT % 69.9 % (42.8-82.8); PLATELET COUNT 194 10^3/uL (134-434); RBC 3.16 M/mm3 (4.00-5.60); RDW 19.6 % (11.9-15.9); WHITE BLOOD COUNT 5.5 K/mm3 (4.0-10.0)
[2022-08-07 09:16] LABS: CALCIUM 7.4 mg/dL (8.5-10.1)
[2022-08-07 09:17] LABS: ALBUMIN 1.1 g/dl (3.4-5.0); BLOOD UREA NITROGEN 19.1 mg/dL (7-18)
[2022-08-07 09:20] LABS: CREATININE 0.7 mg/dL (0.55-1.3)
[2022-08-07 09:21] LABS: BILIRUBIN,TOTAL 0.4 mg/dL (0.2-1)
[2022-08-07 09:22] LABS: TOT PROT 5.5 g/dl (6.4-8.2)
[2022-08-07] MEDS ORDERED: FINASTERIDE 5 MG TABLET (FP) PO SCH (10:00)
[2022-08-07] MEDS: ZINC SULFATE 220 MG CAPSULE (FP) PO SCH (10:16)
[2022-08-07] MEDS: COLLAGENASE CLOSTRIDIUM HIST. 30 GRAMS TUBE TP SCH (10:17)
[2022-08-07] MEDS: ASCORBIC ACID 500 MG TABLET (FP) PO SCH (10:17)
[2022-08-07] MEDS: DONEPEZIL HCL 5 MG TABLET (FP) PO SCH (10:17)
[2022-08-07] MEDS: MULTIVIT-MINERALS ORAL LIQUID PO SCH (10:17)
[2022-08-07] MEDS: AMINO ACIDS/PROTEIN HYDROLYS 30 ML LIQUID.PKT PO SCH (10:17)
[2022-08-07] MEDS: PANTOPRAZOLE 40 MG TABLET PO SCH (10:17)
[2022-08-07] MEDS: CARVEDILOL 12.5 MG TABLET (FP) PO SCH (10:17)
[2022-08-07 10:25] VITALS: BP 148/65; PULSE 68; RESP 18; TEMP 98.2
[2022-08-07] MEDS ORDERED: FINASTERIDE 5 MG TABLET (FP) PO ONE (10:36)
== END 2022-08-07 13:08 | DRG 871 ==
LOC: JER 21:28 → JERBED 22:55 → J7W 07-29 16:48
PROVIDERS: ADMIT Internal Medicine; ATTEND Internal Medicine
PROC: 30233N1 Transfusion of Nonautologous Red Blood Cells into Peripheral Vein, Percutaneous Approach (ICD-10-PCS; principal; 2022-07-29)
DX: A41.9 Sepsis, unspecified organism (principal); J15.0 Pneumonia due to Klebsiella pneumoniae; L89.154 Pressure ulcer of sacral region, stage 4; N17.9 Acute kidney failure, unspecified; N39.0 Urinary tract infection, site not specified; I69.354 Hemiplegia and hemiparesis following cerebral infarction affecting left non-dominant side; J44.0 Chronic obstructive pulmonary disease with (acute) lower respiratory infection; E87.20 Acidosis, unspecified; E87.0 Hyperosmolality and hypernatremia; Z68.1 Body mass index [BMI] 19.9 or less, adult; Z16.12 Extended spectrum beta lactamase (ESBL) resistance; R64 Cachexia; I12.9 Hypertensive chronic kidney disease with stage 1 through stage 4 chronic kidney disease, or unspecified chronic kidney disease; F03.90 Unspecified dementia, unspecified severity, without behavioral disturbance, psychotic disturbance, mood disturbance, and anxiety; I69.320 Aphasia following cerebral infarction; N18.9 Chronic kidney disease, unspecified; D64.9 Anemia, unspecified; I48.91 Unspecified atrial fibrillation; E78.5 Hyperlipidemia, unspecified; D72.829 Elevated white blood cell count, unspecified; N40.0 Benign prostatic hyperplasia without lower urinary tract symptoms; E86.0 Dehydration; L89.626 Pressure-induced deep tissue damage of left heel; L89.526 Pressure-induced deep tissue damage of left ankle; L89.616 Pressure-induced deep tissue damage of right heel
CPT/HCPCS: 0241U-QW; 36415; 36430; 71045-TC-FY; 74230-TC-FY; 80048; 80053; 81003; 82272; 82803; 83605; 83735; 83880; 84100; 84484; 85025; 85027; 85610; 85730; 86850; 86900; 86901; 86922; 87040; 87086; 87186; 92611-GN; 93005; 93010; 93306-TC; 99285-25; C9803-CS; J1756; P9058; U0003; U0005

== ENCOUNTER 2022-08-28 11:27 | Observation (INO) | payer OTHER, MEDICARE ==
[2022-08-28 12:06] VITALS: BMI 19.5
[2022-08-28 15:43] LABS: BASO % 0.2 % (0-2.0); EOS % 1.5 % (0-4.5); HEMATOCRIT 20.3 % (35.4-49); LYMPH % 12.8 % (8-40); MCH 25.9 pg (25.7-33.7); MEAN CELL VOLUME 80.7 fl (80-96); MEAN PLT VOLUME 7.1 fl (7.5-11.1); MONO % 5.3 % (3.8-10.2); NEUT % 80.2 % (42.8-82.8); PLATELET COUNT 234 10^3/uL (134-434); RBC 2.51 M/mm3 (4.00-5.60); RDW 22.7 % (11.9-15.9); WHITE BLOOD COUNT 8.3 K/mm3 (4.0-10.0)
[2022-08-28 15:45] LABS: HEMOGLOBIN 6.5 GM/dL (11.7-16.9)
[2022-08-28 16:07] LABS: CALCIUM 7.3 mg/dL (8.5-10.1); MAGNESIUM 1.9 mg/dL (1.8-2.4)
[2022-08-28 16:08] LABS: ALBUMIN 1.1 g/dl (3.4-5.0); BLOOD UREA NITROGEN 16.5 mg/dL (7-18)
[2022-08-28 16:10] LABS: CREATININE 0.7 mg/dL (0.55-1.3)
[2022-08-28 16:11] LABS: PHOSPHOROUS 1.8 mg/dL (2.5-4.9)
[2022-08-28 16:12] LABS: BILIRUBIN,TOTAL 0.3 mg/dL (0.2-1); TOT PROT 5.6 g/dl (6.4-8.2)
[2022-08-28 16:34] LABS: ANISOCYTOSIS 1+; MACROCYTOSIS 0
[2022-08-28] MEDS ORDERED: ATORVASTATIN CA 80 MG TABLET (FP) PO SCH (22:00)
[2022-08-28] MEDS ORDERED: MIRTAZAPINE 15 MG TABLET (FP) PO SCH (22:15)
[2022-08-29] MEDS ORDERED: MIRTAZAPINE 15 MG TABLET (FP) ONE (00:15)
[2022-08-29] MEDS ORDERED: CARVEDILOL 12.5 MG TABLET (FP) ONE (00:15)
[2022-08-29] MEDS ORDERED: ATORVASTATIN CA 80 MG TABLET (FP) ONE (00:15)
[2022-08-29] MEDS: CARVEDILOL 12.5 MG TABLET (FP) PO SCH ×2 (00:23→11:43)
[2022-08-29 03:28] LABS: HEMATOCRIT 24.4 % (35.4-49); MCH 26.7 pg (25.7-33.7); MCHC 32.6 g/dl (32.0-35.9); MEAN CELL VOLUME 82.1 fl (80-96); MEAN PLT VOLUME 6.4 fl (7.5-11.1); PLATELET COUNT 176 10^3/uL (134-434); RBC 2.98 M/mm3 (4.00-5.60); RDW 20.6 % (11.9-15.9)
[2022-08-29 04:01] LABS: WHITE BLOOD COUNT 1.8 K/mm3 (4.0-10.0)
[2022-08-29 04:27] LABS: HEMATOCRIT 24.7 % (35.4-49); MCH 26.4 pg (25.7-33.7); MCHC 32.4 g/dl (32.0-35.9); MEAN CELL VOLUME 81.5 fl (80-96); MEAN PLT VOLUME 6.5 fl (7.5-11.1); PLATELET COUNT 171 10^3/uL (134-434); RBC 3.03 M/mm3 (4.00-5.60); RDW 20.7 % (11.9-15.9); WHITE BLOOD COUNT 2.7 K/mm3 (4.0-10.0)
[2022-08-29 06:16] LABS: ANISOCYTOSIS 3+; MACROCYTOSIS 1+; OVALOCYTE 2+
[2022-08-29 06:18] LABS: ANISOCYTOSIS 2+; MACROCYTOSIS 0; OVALOCYTE 2+
[2022-08-29 06:28] LABS: HEMATOCRIT 28.2 % (35.4-49); HEMOGLOBIN 9.1 GM/dL (11.7-16.9); MCH 26.7 pg (25.7-33.7); MCHC 32.4 g/dl (32.0-35.9); MEAN CELL VOLUME 82.4 fl (80-96); MEAN PLT VOLUME 7.1 fl (7.5-11.1); PLATELET COUNT 168 10^3/uL (134-434); RBC 3.42 M/mm3 (4.00-5.60); RDW 20.5 % (11.9-15.9); WHITE BLOOD COUNT 3.5 K/mm3 (4.0-10.0)
[2022-08-29 06:36] VITALS: TEMP 97.3
[2022-08-29 06:56] LABS: CALCIUM 7.4 mg/dL (8.5-10.1)
[2022-08-29 06:57] LABS: BLOOD UREA NITROGEN 18.7 mg/dL (7-18)
[2022-08-29 07:00] LABS: CREATININE 0.7 mg/dL (0.55-1.3)
[2022-08-29 09:48] LABS: ANISOCYTOSIS 2+; MACROCYTOSIS 0; OVALOCYTE 1+
[2022-08-29] MEDS ORDERED: ASCORBIC ACID 500 MG TABLET (FP) PO SCH (10:00)
[2022-08-29] MEDS ORDERED: PANTOPRAZOLE 40 MG TABLET PO SCH (10:00)
[2022-08-29] MEDS ORDERED: MULTIVITAMINS THER W-MINERALS COMBO TABLET (FP) PO SCH (10:00)
[2022-08-29 12:28] VITALS: BP 115/62; PULSE 69; RESP 16
[2022-08-29] MEDS ORDERED: DONEPEZIL HCL 5 MG TABLET (FP) PO SCH (22:00)
== END 2022-08-29 15:10 ==
LOC: JER 11:27 → JERBED 18:58
PROVIDERS: ADMIT Internal Medicine; ATTEND Internal Medicine
PROC: 30233N1 Transfusion of Nonautologous Red Blood Cells into Peripheral Vein, Percutaneous Approach (ICD-10-PCS; principal; 2022-08-28)
DX: D64.9 Anemia, unspecified (principal); I69.352 Hemiplegia and hemiparesis following cerebral infarction affecting left dominant side; F03.90 Unspecified dementia, unspecified severity, without behavioral disturbance, psychotic disturbance, mood disturbance, and anxiety; I38 Endocarditis, valve unspecified; J44.9 Chronic obstructive pulmonary disease, unspecified; I69.920 Aphasia following unspecified cerebrovascular disease; I11.9 Hypertensive heart disease without heart failure; E78.5 Hyperlipidemia, unspecified; M10.9 Gout, unspecified
CPT/HCPCS: 0241U-QW; 36415; 36430; 80048; 80053; 82272; 83735; 84100; 85025; 86850; 86900; 86901; 86922; 93005; 93010; 99285-25; G0378; P9058